=== PATIENT | female | born 1945 | race Caucasian/White ===

== ENCOUNTER → 2019-12-18 12:13 | Outpatient (CLI) | payer MEDICARE, OTHER, SELFPAY ==
[2019-12-18 15:20] LABS: Absolute Lymphocyte Count 1.42 X10^3/uL (0.83-4.51); Absolute Neutrophil Count 4.7 X10^3/uL (2.0-7.7); Basophil# 0.05 X10^3/uL; Basophil% 0.7 % (0-1); Eosinophils% 1.5 % (0-5); Hematocrit 43.8 % (37-47); Hemoglobin 13.6 g/dL (12.0-15.0); Lymphocyte # 1.42 X10^3/ul (4.0); Lymphocyte % 21.3 % (19-41); Mean Corp Hgb Conc 31.1 g/dL (32-36); Mean Corpuscular Hgb 30.5 pg (27.0-32.0); Mean Corpuscular Volume 98.2 fL (81-99); Mean Platelet Vol. 11.3 fl (6.2-12.0); Monocyte# 0.44 X10^3/uL; Monocyte% 6.6 % (0-10); NRBC Flagged by Analyzer 0 % (0-5); Neutrophil # 4.65 X10^3/uL (2.7-7.7); Neutrophil % 69.6 % (47-70); Platelet Count 190 K/mm3 (150-450); RBC Distribution Width CV 12.4 % (11.6-14.6); RBC Distribution Width SD 44.5 fl (35.1-43.9); Red Blood Count 4.46 M/mm3 (4.2-5.4); White Blood Count 6.7 K/mm3 (4.4-11.0)
[2019-12-18 15:37] LABS: ALB/GLOB Ratio 1.1 RATIO (0.9-2.4); AST(SGOT) 23 U/L (15-37); Alanine Aminotransfer ALT/SGPT 37 U/L (13-56); Albumin, Serum 3.7 g/dL (3.2-5.0); Alkaline Phosphatase 67 U/L (45-117); Anion Gap 7 (5-15); BUN 14 mg/dL (7-18); BUN/Creat Ratio 16.1 RATIO (10-20); Calcium,Total 8.7 mg/dL (8.5-10.1); Chloride 107 mmol/L (98-107); Cholesterol 137 mg/dL (200); Creatinine, Serum 0.87 mg/dL (0.55-1.02); EST Glomerular Filtration Rate 68 mL/min (>60); Est Glom Filt Rate - Afr Amer 82 mL/min (>60); Globulin 3.3 g/dL (2.2-4.2); Glucose 86 mg/dL (74-106); High Density Lipoprotein 61 mg/dL; Phosphorus 3.8 mg/dL (2.5-4.9); Potassium 3.9 mmol/L (3.5-5.1); Sodium Level 139 mmol/L (136-145); Triglycerides 128 mg/dL; Very Low Density Lipoprotein 26 mg/dL (5-40)
[2019-12-18 15:39] LABS: Vitamin D,25 Hydroxy 42.1 ng/mL
== END ==
PROVIDERS: PCP Family Medicine; Referring Provider Family Medicine; Visit Provider Family Medicine
DX: I26.99 Other pulmonary embolism without acute cor pulmonale (principal); M81.0 Age-related osteoporosis without current pathological fracture; E78.00 Pure hypercholesterolemia, unspecified
CPT/HCPCS: 36415; 80053; 80061; 82306; 84100; 85025

== ENCOUNTER → 2020-03-02 13:53 | Outpatient (CLI) | payer MEDICARE, OTHER, SELFPAY ==
[2020-03-02 17:23] LABS: ALB/GLOB Ratio 1.1 RATIO (0.9-2.4); AST(SGOT) 24 U/L (15-37); Alanine Aminotransfer ALT/SGPT 25 U/L (13-56); Albumin, Serum 3.5 g/dL (3.2-5.0); Alkaline Phosphatase 66 U/L (45-117); Anion Gap 5 (5-15); BUN 8 mg/dL (7-18); BUN/Creat Ratio 10.1 RATIO (10-20); Calcium,Total 8.9 mg/dL (8.5-10.1); Chloride 110 mmol/L (98-107); EST Glomerular Filtration Rate 75 mL/min (>60); Est Glom Filt Rate - Afr Amer 90 mL/min (>60); Globulin 3.1 g/dL (2.2-4.2); Glucose 102 mg/dL (74-106); Magnesium 2.2 mg/dL (1.6-2.6); Potassium 4.1 mmol/L (3.5-5.1); Protein, Total 6.6 g/dL (6.4-8.2); Sodium Level 142 mmol/L (136-145); Thyroid Stim Hormone (TSH) 3.05 uIU/mL (0.358-3.74)
[2020-03-04 16:08] LABS: Endomysial Antibody IgA Negative (Negative)
[2020-03-04 22:04] LABS: Immunoglobulin A 162 mg/dL (64-422); t-Transglutaminase IgA <2 U/mL (0-3)
== END ==
PROVIDERS: PCP Family Medicine; Referring Provider Family Medicine; Visit Provider Family Medicine
DX: R19.7 Diarrhea, unspecified (principal); E78.00 Pure hypercholesterolemia, unspecified
CPT/HCPCS: 36415; 80053; 82784; 83516; 83735; 84443; 86255

== ENCOUNTER → 2020-03-03 12:47 | Outpatient (CLI) | payer MEDICARE, OTHER, SELFPAY ==
[2020-03-05 22:44] LABS: Fats, Neutral Normal (.); Fats, Total Normal (.)
== END ==
PROVIDERS: PCP Family Medicine; Referring Provider Family Medicine; Visit Provider Family Medicine
DX: R19.7 Diarrhea, unspecified (principal)
CPT/HCPCS: 82705; 83630; 87177; 87209; 87493; 87506

== ENCOUNTER → 2020-07-13 12:09 | Outpatient (CLI) | payer MEDICARE, OTHER, SELFPAY ==
--- NOTE | 2020-07-13 12:11 | BI_ITS ---
MAMMOGRAPHY - BILATERAL SCREENING REASON FOR EXAM: Female, 74 years old. Routine annual screening examination. PERTINENT HISTORY: Sister with breast cancer. TECHNIQUE: Digital bilateral breast naveed (3D mammographic acquisition) in the CC and MLO projections. 2-D mediolateral oblique (MLO) and craniocaudad (CC) views of both breasts were obtained. CAD: Full Field Digital Mammography with Computer Added Detection was performed. COMPARISON: No comparison mammograms available at this time. If any prior films become available, an addendum to this report can be generated. FINDINGS: Breast Composition: The breasts are extremely dense, which lowers the sensitivity of mammography. There are no dominant masses or suspicious calcifications. Small benign-appearing bilateral axillary lymph nodes. No other significant abnormalities are identified. BI/SCRN MAMM (CAD)W/NAVEED BILAT IMPRESSION: Negative screening mammogram. Yearly followup mammogram recommended. (A) ASSESSMENT CATEGORY: BIRADS Category 2: Benign. A letter regarding these results will be sent to the patient by the facility within 30 days. Approximately 10% of breast cancers are not detected by mammography. A normal mammogram should not delay biopsy of a clinically suspicious abnormality. [id number] Electronically Signed: Yoandy Serrano MD at 12:24 EST , Service support ,
== END ==
PROVIDERS: PCP Family Medicine; Referring Provider Family Medicine; Visit Provider Family Medicine
DX: Z12.31 Encounter for screening mammogram for malignant neoplasm of breast (principal)
CPT/HCPCS: 77063; 77067

== ENCOUNTER → 2020-07-30 10:42 | Outpatient (CLI) | payer MEDICARE, OTHER, SELFPAY ==
[2020-07-30 12:45] LABS: Vitamin D,25 Hydroxy 25.4 ng/mL
[2020-07-30 13:08] LABS: ALB/GLOB Ratio 1.1 RATIO (0.9-2.4); AST(SGOT) 18 U/L (15-37); Alanine Aminotransfer ALT/SGPT 25 U/L (13-56); Albumin, Serum 3.6 g/dL (3.2-5.0); Alkaline Phosphatase 66 U/L (45-117); Anion Gap 7 (5-15); BUN 13 mg/dL (7-18); BUN/Creat Ratio 17.1 RATIO (10-20); Chloride 108 mmol/L (98-107); Cholesterol 153 mg/dL (200); Creatinine, Serum 0.76 mg/dL (0.55-1.02); EST Glomerular Filtration Rate 79 mL/min (>60); Est Glom Filt Rate - Afr Amer 95 mL/min (>60); Globulin 3.2 g/dL (2.2-4.2); Glucose 87 mg/dL (74-106); High Density Lipoprotein 75 mg/dL; Protein, Total 6.8 g/dL (6.4-8.2); Sodium Level 142 mmol/L (136-145); Triglycerides 76 mg/dL; Very Low Density Lipoprotein 15 mg/dL (5-40)
== END ==
PROVIDERS: PCP Family Medicine; Referring Provider Family Medicine; Visit Provider Family Medicine
DX: M81.0 Age-related osteoporosis without current pathological fracture (principal); E78.00 Pure hypercholesterolemia, unspecified
CPT/HCPCS: 36415; 80053; 80061; 82306

== ENCOUNTER → 2020-09-28 10:06 | Outpatient (CLI) | payer MEDICARE, OTHER, SELFPAY ==
--- NOTE | 2020-09-28 10:18 | ECHOD_ITS ---
Reason For Study: MURMUR Procedure This was a 2D Doppler, Color Flow transthoracic echocardiogram. The study was technically difficult. Exam performed in department. Left Ventricle Normal LV size. Left ventricular systolic function is normal. The estimated ejection fraction is 65 %. No evidence for diastolic dysfunction. No regional wall motion abnormalities noted. Right Ventricle Normal RV size. Normal systolic function. Atria Normal left atrium. Normal right atrium. No doppler evidence for ASD. Mitral Valve There is mild mitral annular calcification. Normal mitral valve. Trivial mitral valve insufficiency. Tricuspid Valve Normal tricuspid valve. Moderate (2+) tricuspid valve insufficiency. Right ventricular systolic pressure estimated to be 33 mmHg. Aortic Valve Trisinus/trileaflet aortic valve. Mild diffuse aortic valve thickening. Pulmonic Valve The pulmonic valve is not well visualized. Great Vessels Normal sized aortic root. Pericardium/Pleural No pericardial effusion. MMode/2D Measurements & Calculations LVIDd: 3.9 cm IVSd: 0.67 cm LVOT diam: 3.5 cm LVIDs: 2.3 cm LVPWd: 0.66 cm LVOT area: 9.6 cm2 RVDd: 3.3 cm FS: 40.6 % LAV(MOD-bp): 49.7 ml LA A4 area: 17.5 cm2 LA dimension(2D): 3.2 cm LAV(MOD-bp) Indexed: 24.7 ml/m2 LAV(MOD-sp2): 49.0 ml LAV(MOD-sp4): 48.7 ml RA A4 area: 16.3 cm2 Time Measurements MV dec time: 0.21 sec Doppler Measurements & Calculations MV E max fitz: 59.3 cm/sec Lat Peak E' Fitz: 9.0 cm/sec Med Peak E' Fitz: 7.0 cm/sec MV A max fitz: 70.6 cm/sec E/E' lat: 6.6 E/E' med: 8.4 MV E/A: 0.84 MV V2 max: 77.6 cm/sec Ao V2 max: 94.2 cm/sec LV V1 max: 97.3 cm/sec MV max P.4 mmHg Ao max P.6 mmHg LV V1 max P.8 mmHg MV V2 mean: 46.1 cm/sec PIPE(V,D): 9.9 cm2 MV mean P.93 mmHg MV V2 VTI: 17.9 cm PA V2 max: 85.4 cm/sec TR max fitz: 272.1 cm/sec MV P1/2t-pr_phl: 118.0 msec TR max P.7 mmHg ECHO/Echo Complete Interpretation Summary The study was technically difficult. Left ventricular systolic function is normal. The estimated ejection fraction is 65 %. There is mild mitral annular calcification. Trivial mitral valve insufficiency. Moderate (2+) tricuspid valve insufficiency. Mild diffuse aortic valve thickening. Right ventricular systolic pressure estimated to be 33 mmHg. No evidence for diastolic dysfunction. Ordering Physician: Carmina Guzman Referring Physician: CARMINA GUZMAN Performed By: Nataly Moser, SANKET, RVT
--- NOTE | 2020-09-28 13:35 | BD_ITS ---
STUDY: DUAL ENERGY X-RAY ABSORPTIOMETRY / DXA REASON FOR EXAM: Female, 75 years old. 733.00OsteoporosisBONE DENSITY REASON FOR EXAM TECHNIQUE: Bone Mineral Density (BMD) measurements of lumbar spine and right hip were obtained. COMPARISON: None. FINDINGS: Lumbar Spine (L1-L4): g/cm2 (0.911) / T-score (-2.1) / Z-score (-0.4) Findings are suggestive of osteopenia with a high fracture risk. Right Femur Total: g/cm2 (0.637) / T-score (-2.9) / Z-score (-1.2) Right Femoral Neck: g/cm2 (0.663) / T-score (-2.7) / Z-score (-0.7) BD/Dexa Bone Density Study IMPRESSION: The patient is considered osteoporotic as outlined below according to World [employer] Organization (WHO) criteria with a high fracture risk. Reference Information: The T-score is the number of standard deviations above or below the standard which is normal for young adults at their peak bone mineral density. The World Health Organization (WHO) interprets the T-scores as follows: Above -1 Normal bone density Between -1 and -2.5 Osteopenia Equal to / or below -2.5 Osteoporosis As a practical clinical guideline, osteopenia may be graded as follows: Mild -1 through -1.5 Moderate -1.6 through -2.0 Severe -2.1 through -2.4 The Z-score is the number of standard deviations above or below age-matched controls. A Z-score of less than -1.5 would be considered abnormal. References: 1. NIH Osteoporosis and Related Bone Diseases www osteo.org 2. International Society for Clinical Densitometry www iscd.org 3. National Osteoporosis Foundation www nof.org Electronically Signed: Yoandy Serrano MD at 12:42 EDT , Service support ,
== END ==
PROVIDERS: PCP Family Medicine; Visit Provider Family Medicine
DX: M81.0 Age-related osteoporosis without current pathological fracture (principal); R00.2 Palpitations
CPT/HCPCS: 77080; 93306

== ENCOUNTER → 2020-10-01 14:14 | Outpatient (CLI) | payer MEDICARE, OTHER, SELFPAY ==
[2020-10-01 17:51] LABS: Absolute Lymphocyte Count 1.77 X10^3/uL (0.83-4.51); Absolute Neutrophil Count 4.7 X10^3/uL (2.0-7.7); Basophil# 0.05 X10^3/uL; Basophil% 0.7 % (0-1); Eosinophil# 0.13 X10^3/uL; Eosinophils% 1.8 % (0-5); Hematocrit 43.9 % (37-47); Hemoglobin 13.5 g/dL (12.0-15.0); Lymphocyte # 1.77 X10^3/ul (4.0); Lymphocyte % 24.8 % (19-41); Mean Corp Hgb Conc 30.8 g/dL (32-36); Mean Corpuscular Hgb 29.9 pg (27.0-32.0); Mean Corpuscular Volume 97.1 fL (81-99); Mean Platelet Vol. 11.5 fl (6.2-12.0); Monocyte# 0.44 X10^3/uL; Monocyte% 6.2 % (0-10); NRBC Flagged by Analyzer 0 % (0-5); Neutrophil # 4.73 X10^3/uL (2.7-7.7); Neutrophil % 66.1 % (47-70); Platelet Count 220 K/mm3 (150-450); RBC Distribution Width CV 12.4 % (11.6-14.6); RBC Distribution Width SD 44.7 fl (35.1-43.9); Red Blood Count 4.52 M/mm3 (4.2-5.4); White Blood Count 7.2 K/mm3 (4.4-11.0)
[2020-10-01 18:36] LABS: ALB/GLOB Ratio 1.2 RATIO (0.9-2.4); AST(SGOT) 24 U/L (15-37); Alanine Aminotransfer ALT/SGPT 34 U/L (13-56); Albumin, Serum 3.7 g/dL (3.2-5.0); Alkaline Phosphatase 73 U/L (45-117); Anion Gap 5 (5-15); BUN 9 mg/dL (7-18); BUN/Creat Ratio 11.8 RATIO (10-20); Calcium,Total 8.8 mg/dL (8.5-10.1); Chloride 108 mmol/L (98-107); Creatinine, Serum 0.76 mg/dL (0.55-1.02); EST Glomerular Filtration Rate 78 mL/min (>60); Est Glom Filt Rate - Afr Amer 95 mL/min (>60); Glucose 76 mg/dL (74-106); Magnesium 2.1 mg/dL (1.6-2.6); Potassium 4.1 mmol/L (3.5-5.1); Protein, Total 6.7 g/dL (6.4-8.2); Sodium Level 141 mmol/L (136-145); Thyroid Stim Hormone (TSH) 3.05 uIU/mL (0.358-3.74)
== END ==
PROVIDERS: PCP Family Medicine; Referring Provider Family Medicine; Visit Provider Family Medicine
DX: R00.2 Palpitations (principal)
CPT/HCPCS: 36415; 80053; 83735; 84443; 85025

== ENCOUNTER → 2021-02-18 17:02 | Outpatient (CLI) | payer MEDICARE, OTHER, SELFPAY ==
--- NOTE | 2021-02-18 17:05 | RAD_ITS ---
STUDY: X-RAY - BILATERAL RIBS WITH CHEST REASON FOR EXAM: Female, 75 years old. Rib pain. Fall on to left ribs. TECHNIQUE - RIBS: 6 view(s) of the ribs. TECHNIQUE - CHEST: Single PA view of the chest. COMPARISON: None. FINDINGS - RIBS : Normal visualized ribs without a demonstrated fracture. FINDINGS - CHEST: The lungs are mildly hyperexpanded. There is no focal mass or infiltrate. There is no pneumothorax. There is no demonstrated pleural abnormality. Normal size heart. Normal mediastinum and louis. Normal visualized pulmonary arteries. There is atherosclerotic calcification of the aortic arch with tortuosity. There are diffuse degenerative changes of the visualized thoracic spine. There is degenerative osteoarthritis of the bilateral shoulders. There is no demonstrated abnormality of the visualized soft tissue structures of the upper abdomen. RAD/Ribs Samuel Min 4V w/PA Chest IMPRESSION: RIBS: Normal x-ray examination of the bilateral ribs. CHEST: Degenerative changes, as described above. No demonstrated acute cardiopulmonary process. Electronically Signed: Kevan Pardo DO at 23:58 EDT Tel [phone], Service support ,
== END ==
PROVIDERS: PCP Family Medicine; Referring Provider Family Medicine; Visit Provider Family Medicine
DX: R07.81 Pleurodynia (principal)
CPT/HCPCS: 71111

== ENCOUNTER → 2021-04-12 11:30 | Outpatient (CLI) | payer MEDICARE, OTHER, SELFPAY ==
[2021-04-12 15:27] LABS: Vitamin D,25 Hydroxy 24.3 ng/mL
[2021-04-12 15:33] LABS: ALB/GLOB Ratio 0.9 RATIO (0.9-2.4); AST(SGOT) 20 U/L (15-37); Alanine Aminotransfer ALT/SGPT 23 U/L (13-56); Albumin, Serum 3.6 g/dL (3.2-5.0); Alkaline Phosphatase 59 U/L (45-117); Anion Gap 10 (5-15); BUN 9 mg/dL (7-18); BUN/Creat Ratio 10.5 RATIO (10-20); Calcium,Total 8.9 mg/dL (8.5-10.1); Chloride 104 mmol/L (98-107); Cholesterol 157 mg/dL (200); Creatinine, Serum 0.86 mg/dL (0.55-1.02); EST Glomerular Filtration Rate 68 mL/min (>60); Est Glom Filt Rate - Afr Amer 82 mL/min (>60); Globulin 3.8 g/dL (2.2-4.2); Glucose 91 mg/dL (74-106); High Density Lipoprotein 62 mg/dL; Potassium 4.1 mmol/L (3.5-5.1); Protein, Total 7.4 g/dL (6.4-8.2); Sodium Level 139 mmol/L (136-145); Triglycerides 115 mg/dL; Very Low Density Lipoprotein 23 mg/dL (5-40)
== END ==
PROVIDERS: PCP Family Medicine; Referring Provider Family Medicine; Visit Provider Family Medicine
DX: E78.00 Pure hypercholesterolemia, unspecified (principal); M81.0 Age-related osteoporosis without current pathological fracture
CPT/HCPCS: 36415; 80053; 80061; 82306

== ENCOUNTER 2021-09-01 12:01 | Outpatient (CLI) | payer MEDICARE, OTHER, SELFPAY ==
--- NOTE | 2021-09-01 12:05 | BI_ITS ---
MAMMOGRAPHY - BILATERAL SCREENING REASON FOR EXAM: Female, 75 years old. Routine annual screening examination. PERTINENT HISTORY: Sister with breast cancer. TECHNIQUE: Digital bilateral breast naveed (3D mammographic acquisition) in the CC and MLO projections. 2-D mediolateral oblique (MLO) and craniocaudad (CC) views of both breasts were obtained. CAD: Full Field Digital Mammography with Computer Added Detection was performed. COMPARISON: Comparison is made with prior study dated 07/13/2020. FINDINGS: Breast Composition: The breasts are extremely dense, which lowers the sensitivity of mammography. There are no dominant masses or suspicious calcifications. Stable small benign-appearing bilateral axillary lymph. No other significant abnormalities are identified. There has been no significant change since the prior study. BI/SCRN MAMM (CAD)W/NAVEED BILAT IMPRESSION: Stable bilateral screening mammogram. Yearly follow-up mammogram recommended. (A) ASSESSMENT CATEGORY: BIRADS Category 2: Benign. A letter regarding these results will be sent to the patient by the facility within 30 days. Approximately 10% of breast cancers are not detected by mammography. A normal mammogram should not delay biopsy of a clinically suspicious abnormality. [id number] Electronically Signed: Yoandy Serrano MD at 13:12 EST ,
== END 2021-09-01 23:59 | disposition home or self-care (01) ==
PROVIDERS: PCP Family Medicine; Visit Provider Family Medicine
DX: Z12.31 Encounter for screening mammogram for malignant neoplasm of breast (principal)
CPT/HCPCS: 77063; 77067

== ENCOUNTER 2021-10-04 11:15 | Outpatient (CLI) | payer MEDICARE, OTHER, SELFPAY ==
[2021-10-04 15:51] LABS: Vitamin D,25 Hydroxy 37.9 ng/mL
[2021-10-04 16:08] LABS: AST(SGOT) 28 U/L (15-37); Alanine Aminotransfer ALT/SGPT 37 U/L (13-56); Albumin, Serum 3.7 g/dL (3.2-5.0); Alkaline Phosphatase 61 U/L (45-117); Anion Gap 6 (5-15); BUN 9 mg/dL (7-18); Calcium,Total 8.5 mg/dL (8.5-10.1); Chloride 106 mmol/L (98-107); Cholesterol 174 mg/dL (200); Creatinine, Serum 0.82 mg/dL (0.55-1.02); EST Glomerular Filtration Rate 72 mL/min (>60); Est Glom Filt Rate - Afr Amer 87 mL/min (>60); Globulin 3.7 g/dL (2.2-4.2); Glucose 86 mg/dL (74-106); High Density Lipoprotein 61 mg/dL; Potassium 4.1 mmol/L (3.5-5.1); Protein, Total 7.4 g/dL (6.4-8.2); Sodium Level 139 mmol/L (136-145); Triglycerides 122 mg/dL; Very Low Density Lipoprotein 24 mg/dL (5-40)
== END 2021-10-04 23:59 | disposition home or self-care (01) ==
LOC: MFPLAB 11:25
PROVIDERS: Registered Nurse; PCP Family Medicine; Referring Provider Family Medicine; Visit Provider Family Medicine
DX: E78.00 Pure hypercholesterolemia, unspecified (principal); E55.9 Vitamin D deficiency, unspecified
CPT/HCPCS: 36415; 80053; 80061; 82306

== ENCOUNTER 2021-10-10 13:37 | Outpatient (CLI) | payer MEDICARE, OTHER, SELFPAY | END 2021-10-10 23:59 | disposition home or self-care (01) | LOC: MFPLAB 13:38 | PROVIDERS: PCP Family Medicine; Visit Provider Family Medicine | DX: R19.7 Diarrhea, unspecified (principal) | CPT/HCPCS: 87506 ==

== ENCOUNTER → 2021-10-19 | Outpatient (CLI) | payer MEDICARE, OTHER, SELFPAY | END | disposition home or self-care (01) | LOC: MFPLAB 14:04 → LABSPEC 14:06 | PROVIDERS: PCP Family Medicine; Referring Provider Family Medicine; Visit Provider Registered Nurse | DX: R19.7 Diarrhea, unspecified (principal) | CPT/HCPCS: 87177; 87209; 87493 ==

== ENCOUNTER → 2022-03-31 | Outpatient (CLI) | payer MEDICARE, OTHER, SELFPAY ==
[2022-03-31 12:10] LABS: Absolute Neutrophil Count 6.4 X10^3/uL (2.0-7.7); Basophil# 0.09 X10^3/uL; Eosinophil# 0.18 X10^3/uL; Lymphocyte % 21.7 % (19-41); Mean Corp Hgb Conc 32.6 g/dL (32-36); Mean Corpuscular Hgb 31.8 pg (27.0-32.0); Mean Corpuscular Volume 97.7 fL (81-99); Mean Platelet Vol. 11.1 fl (6.2-12.0); Monocyte# 0.47 X10^3/uL; Monocyte% 5.1 % (0-10); NRBC Flagged by Analyzer 0 % (0-5); Neutrophil # 6.42 X10^3/uL (2.7-7.7); Neutrophil % 69.8 % (47-70); Platelet Count 237 K/mm3 (150-450); RBC Distribution Width CV 12.5 % (11.6-14.6); RBC Distribution Width SD 45.1 fl (35.1-43.9); Red Blood Count 4.71 M/mm3 (4.2-5.4); White Blood Count 9.2 K/mm3 (4.4-11.0)
[2022-03-31 13:14] LABS: AST(SGOT) 16 U/L (15-37); Alanine Aminotransfer ALT/SGPT 27 U/L (13-56); Albumin, Serum 3.5 g/dL (3.2-5.0); Alkaline Phosphatase 56 U/L (45-117); Anion Gap 7 (5-15); BUN 12 mg/dL (7-18); BUN/Creat Ratio 13.1 RATIO (10-20); Calcium,Total 9.2 mg/dL (8.5-10.1); Chloride 106 mmol/L (98-107); Cholesterol 149 mg/dL (200); Creatinine, Serum 0.92 mg/dL (0.55-1.02); EST Glomerular Filtration Rate 63 mL/min (>60); Est Glom Filt Rate - Afr Amer 76 mL/min (>60); Globulin 3.6 g/dL (2.2-4.2); Glucose 104 mg/dL (74-106); High Density Lipoprotein 67 mg/dL; Magnesium 1.9 mg/dL (1.6-2.6); Potassium 3.9 mmol/L (3.5-5.1); Protein, Total 7.1 g/dL (6.4-8.2); Sodium Level 141 mmol/L (136-145); Thyroid Stim Hormone (TSH) 0.04 uIU/mL (0.358-3.74); Triglycerides 101 mg/dL; Very Low Density Lipoprotein 20 mg/dL (5-40)
[2022-04-04 16:09] LABS: T4 Free Direct 1.02 ng/dL (0.76-1.46)
[2022-04-04 16:16] LABS: Hemoglobin A1c 5.2 % (3.8-5.6)
== END | disposition home or self-care (01) ==
LOC: MFPLAB 11:05
PROVIDERS: PCP Family Medicine; Referring Provider Family Medicine; Visit Provider Family Medicine
DX: R00.2 Palpitations (principal); M81.0 Age-related osteoporosis without current pathological fracture; E07.89 Other specified disorders of thyroid; R73.09 Other abnormal glucose; E78.00 Pure hypercholesterolemia, unspecified
CPT/HCPCS: 36415; 80053; 80061; 82306; 83036; 83735; 84432; 84439; 84443; 84445; 85025; 86376; 86800

== ENCOUNTER → 2022-04-13 | Outpatient (CLI) | payer MEDICARE, OTHER, SELFPAY ==
[2022-04-16 09:21] LABS: Thyroid Stim Immunoglob <0.10 IU/L (0.00-0.55)
== END | disposition home or self-care (01) ==
LOC: MFPLAB 16:42
PROVIDERS: PCP Family Medicine; Referring Provider Family Medicine; Visit Provider Family Medicine
DX: E07.89 Other specified disorders of thyroid (principal)
CPT/HCPCS: 36415; 84445

== ENCOUNTER → 2022-08-29 | Outpatient (CLI) | payer MEDICARE, OTHER, SELFPAY ==
--- NOTE | 2022-08-29 13:09 | ECHOD_ITS ---
Reason For Study: Palpitations Procedure This was a 2D Doppler, Color Flow transthoracic echocardiogram. Exam performed in department. Left Ventricle Normal size and thickness. The left ventricular ejection fraction is 65 %. Normal diastology for age. Right Ventricle Mildly dilated right ventricle. Normal systolic function. Atria Normal left atrium. The right atrium is mildly enlarged. Mitral Valve The mitral valve is structurally normal. No prolapse or stenosis seen. Tricuspid Valve Mild tricuspid valve insufficiency. Normal pulmonary artery pressure. Aortic Valve Normal aortic valve. Pulmonic Valve The pulmonic valve is not well visualized. Great Vessels Normal sized aortic root. Pericardium/Pleural No pericardial effusion. MMode/2D Measurements & Calculations LVIDd: 3.9 cm IVSd: 0.66 cm LA dimension: 3.0 cm LVIDs: 2.2 cm LVPWd: 0.71 cm RVDd: 3.5 cm FS: 43.2 % LAV(MOD-bp): 36.1 ml LA A4 area: 13.6 cm2 RA A4 area: 14.0 cm2 LAV(MOD-bp) Indexed: 18.7 ml/m2 LAV(MOD-sp2): 35.1 ml LAV(MOD-sp4): 31.8 ml Time Measurements MV dec time: 0.22 sec Doppler Measurements & Calculations MV E max fitz: 50.1 cm/sec Lat Peak E' Fitz: 11.3 cm/sec Med Peak E' Fitz: 9.5 cm/sec MV A max fitz: 86.3 cm/sec E/E' lat: 4.4 E/E' med: 5.3 MV E/A: 0.58 MV V2 max: 96.9 cm/sec MV dec slope: 225.7 cm/sec2 Ao V2 max: 85.9 cm/sec MV max P.8 mmHg Ao max P.9 mmHg MV V2 mean: 47.0 cm/sec MV mean P.1 mmHg MV V2 VTI: 22.0 cm LV V1 max: 88.3 cm/sec PA V2 max: 69.3 cm/sec TR max fitz: 254.3 cm/sec LV V1 max P.1 mmHg TR max P.9 mmHg ECHO/Echo Complete Interpretation Summary The left ventricular ejection fraction is 65 %. Mildly dilated right ventricle. The right atrium is mildly enlarged. Mild tricuspid valve insufficiency. Ordering Physician: Fausto Hutton Referring Physician: Lucas Guzman Performed By: Cortez Gonsalves RCS
== END | disposition home or self-care (01) ==
LOC: CVS 13:07
PROVIDERS: PCP Family Medicine; Referring Provider Internal Medicine Cardiovascular Disease; Visit Provider Internal Medicine Cardiovascular Disease
DX: R00.2 Palpitations (principal)
CPT/HCPCS: 93225; 93226; 93306

== ENCOUNTER → 2022-11-13 | Outpatient (CLI) | payer MEDICARE, OTHER, SELFPAY ==
[2022-11-13 15:40] LABS: Absolute Lymphocyte Count 1.64 X10^3/uL (0.83-4.51); Absolute Neutrophil Count 4.7 X10^3/uL (2.0-7.7); Basophil# 0.06 X10^3/uL; Basophil% 0.9 % (0-1); Eosinophil# 0.08 X10^3/uL; Eosinophils% 1.2 % (0-5); Hematocrit 44.4 % (37-47); Hemoglobin 13.9 g/dL (12.0-15.0); Lymphocyte # 1.64 X10^3/ul (0.83-4.51); Lymphocyte % 23.7 % (19-41); Mean Corp Hgb Conc 31.3 g/dL (32-36); Mean Corpuscular Hgb 30.8 pg (27.0-32.0); Mean Corpuscular Volume 98.2 fL (81-99); Mean Platelet Vol. 11.5 fl (6.2-12.0); Monocyte# 0.39 X10^3/uL; Monocyte% 5.6 % (0-10); NRBC Flagged by Analyzer 0 % (0-5); Neutrophil # 4.74 X10^3/uL (2.7-7.7); Neutrophil % 68.3 % (47-70); Platelet Count 196 K/mm3 (150-450); RBC Distribution Width CV 12.6 % (11.6-14.6); RBC Distribution Width SD 45.2 fl (35.1-43.9); Red Blood Count 4.52 M/mm3 (4.2-5.4); White Blood Count 6.9 K/mm3 (4.4-11.0)
[2022-11-13 16:11] LABS: ALB/GLOB Ratio 1.1 RATIO (0.9-2.4); AST(SGOT) 23 U/L (15-37); Alanine Aminotransfer ALT/SGPT 25 U/L (13-56); Albumin, Serum 3.6 g/dL (3.2-5.0); Alkaline Phosphatase 52 U/L (45-117); Anion Gap 6 (5-15); BUN 11 mg/dL (7-18); BUN/Creat Ratio 13.3 RATIO (10-20); Chloride 109 mmol/L (98-107); Creatinine, Serum 0.82 mg/dL (0.55-1.02); EST Glomerular Filtration Rate 71 mL/min (>60); Est Glom Filt Rate - Afr Amer 86 mL/min (>60); Globulin 3.3 g/dL (2.2-4.2); Glucose 87 mg/dL (74-106); Potassium 4.1 mmol/L (3.5-5.1); Protein, Total 6.9 g/dL (6.4-8.2); Sodium Level 141 mmol/L (136-145)
== END | disposition home or self-care (01) ==
LOC: MFPLAB 11:32
PROVIDERS: Nurse Practitioner Family; PCP Family Medicine; Visit Provider Family Medicine
DX: R19.7 Diarrhea, unspecified (principal)
CPT/HCPCS: 36415; 80053; 85025

== ENCOUNTER → 2022-11-15 | Outpatient (CLI) | payer MEDICARE, OTHER, SELFPAY | END | disposition home or self-care (01) | PROVIDERS: PCP Family Medicine; Visit Provider Nurse Practitioner Family | DX: R19.7 Diarrhea, unspecified (principal) | CPT/HCPCS: 87177; 87209 ==

== ENCOUNTER → 2022-12-15 | Outpatient (CLI) | payer MEDICARE, OTHER, SELFPAY ==
--- NOTE | 2022-12-15 13:11 | STRESSREP_ITS ---
Stress Test Report Date: 12/15/2022 Procedure: Exercise tolerance test Indications: Palpitation Consent: Per the patient Procedure: The patient exercised on a Jose Manuel protocol for 3-minute achieving a peak heart rate of 150 bpm (105% predicted maximal heart rate) with a peak blood pressure 162/50 mmHg and a peak MET capacity of approximately 4.6 MET's. The baseline ECG demonstrated normal sinus rhythm. The peak exercise ECG demonstrated no ischemic changes. There were no cardiac dysrhythmias pretest, during exercise, or recovery. The functional capacity was considered suboptimal. The patient had no complaints of chest discomfort during exercise or recovery. The examination was discontinued secondary to dyspnea and target heart rate raudel ng achieved. Impression: 1. Technically adequate (percent predicted maximal heart rate greater than 85%) exercise tolerance test 2. Peak exercise ECG with no ischemic changes 3. There were no cardiac dysrhythmias during exercise or recovery This note was generated with [employer] software. It may contain incorrect words, spelling, and punctuation that were not noted in checking the note before signing.
== END | disposition home or self-care (01) ==
LOC: CVS 12:27
PROVIDERS: PCP Family Medicine; Referring Provider Internal Medicine Cardiovascular Disease; Visit Provider Internal Medicine Cardiovascular Disease
DX: R06.02 Shortness of breath (principal); R00.2 Palpitations; R53.83 Other fatigue
CPT/HCPCS: 93017

== ENCOUNTER → 2023-01-16 | Outpatient (CLI) | payer MEDICARE, OTHER, SELFPAY ==
--- NOTE | 2023-01-16 13:57 | BD_ITS ---
STUDY: DUAL ENERGY X-RAY ABSORPTIOMETRY / DXA REASON FOR EXAM: Female, 77 years old. 733.90OsteopeniaBONE DENSITY REASON FOR EXAM TECHNIQUE: Bone Mineral Density (BMD) measurements of lumbar spine and right hip were obtained. COMPARISON: Comparison is made with prior study dated September 28, 2020. FINDINGS: Lumbar Spine (L1-L4): g/cm2 (0.893) / T-score (-1.4) / Z-score (1.2) Findings are suggestive of osteopenia with a low fracture risk. Right Femur Total: g/cm2 (0.577) / T-score (-3.0) / Z-score (-1.0) Right Femoral Neck: g/cm2 (0.498) / T-score (-3.2) / Z-score (-0.9) The T-Scores on the most recent prior examination were: Lumbar Spine (L1-L4): There has been improvement of bone density since the previous examination. Right Femur Total: which represents a worsening of 0.7%. BD/Dexa Bone Density Study IMPRESSION: The patient is considered osteoporotic as outlined below according to World [employer] Organization (WHO) criteria with a high fracture risk. There has been worsening of bone density since the previous examination. Reference Information: The T-score is the number of standard deviations above or below the standard which is normal for young adults at their peak bone mineral density. The World Health Organization (WHO) interprets the T-scores as follows: Above -1 Normal bone density Between -1 and -2.5 Osteopenia Equal to / or below -2.5 Osteoporosis As a practical clinical guideline, osteopenia may be graded as follows: Mild -1 through -1.5 Moderate -1.6 through -2.0 Severe -2.1 through -2.4 The Z-score is the number of standard deviations above or below age-matched controls. A Z-score of less than -1.5 would be considered abnormal. References: 1. NIH Osteoporosis and Related Bone Diseases www osteo.org 2. International Society for Clinical Densitometry www iscd.org 3. National Osteoporosis Foundation www nof.org Electronically Signed: Yoandy Serrano MD at 14:32 EDT ,
== END | disposition home or self-care (01) ==
LOC: OPBD 13:52
PROVIDERS: PCP Family Medicine; Referring Provider Family Medicine; Visit Provider Family Medicine
DX: M81.0 Age-related osteoporosis without current pathological fracture (principal)
CPT/HCPCS: 77080

== ENCOUNTER → 2023-01-23 | Outpatient (CLI) | payer MEDICARE, OTHER, SELFPAY ==
--- NOTE | 2023-01-23 12:58 | BI_ITS ---
MAMMOGRAPHY - BILATERAL SCREENING REASON FOR EXAM: Female, 77 years old. Routine annual screening examination. PERTINENT HISTORY: Sister with breast cancer. TECHNIQUE: Digital bilateral breast naveed (3D mammographic acquisition) in the CC and MLO projections. 2-D mediolateral oblique (MLO) and craniocaudad (CC) views of both breasts were obtained. CAD: Full Field Digital Mammography with Computer Added Detection was performed. COMPARISON: Comparison is made with prior study of September 01, 2021 and July 13, 2020. FINDINGS: Breast Composition: The breasts are extremely dense, which lowers the sensitivity of mammography. There are no dominant masses or suspicious calcifications. Stable small benign-appearing bilateral axillary lymph nodes. No other significant abnormalities are identified. There has been no significant change since the prior study. BI/SCRN MAMM (CAD)W/NAVEED BILAT IMPRESSION: Stable bilateral screening mammogram. Yearly follow-up mammogram recommended. (A) ASSESSMENT CATEGORY: BIRADS Category 2: Benign. A letter regarding these results will be sent to the patient by the facility within 30 days. Approximately 10% of breast cancers are not detected by mammography. A normal mammogram should not delay biopsy of a clinically suspicious abnormality. [id number] Electronically Signed: Yoandy Serrano MD at 14:03 EDT ,
== END | disposition home or self-care (01) ==
PROVIDERS: PCP Family Medicine; Referring Provider Family Medicine; Visit Provider Family Medicine
DX: Z12.31 Encounter for screening mammogram for malignant neoplasm of breast (principal); Z80.3 Family history of malignant neoplasm of breast
CPT/HCPCS: 77063; 77067

== ENCOUNTER 2023-05-09 11:09 | Day surgery (SDC) | payer MEDICARE, OTHER, SELFPAY ==
[2023-05-09] VITALS (7 sets, daily range): BP systolic 100–136; BP diastolic 54–72; PULSE 78–85; RESP 18; TEMP 36.2–36.8; O2SAT 96–100; BMI 25.8
--- NOTE | 2023-05-09 11:30 | PCM.HP.BLA ---
History and Physical Date of Admission: 05/09/23 ester presents to the office today for surgical consultation regarding a screening colonoscopy. The patient is referred by Dr Lucas Guzman and a written copy my surgical consult recommendations will be returned to him. 77-year-old female. Apparently she is reasonably recent Del transferred medical care from [facility] to more locally here. Records from [facility] apparently have been very difficult to retrieve. There is evidence suggestive by the patient of her previous colonoscopy 2006. No family history of colon cancer. 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 She is still on Eliquis therapy since that time. She states that she did see a track walker but again her reports are somewhat vague. She states that the time of the event she was doing more sitting but apparently the etiology to the DVT and PE according to her was not clarified. Looking through charting it is also apparent that February 2020 the patient had stool analysis done. On direct questioning the patient she then does recall that he has she had some diarrhea issues at that time but thinks that those have mostly resolved. She is not currently complaining of abdominal pain. No bright red blood per rectum or melena. As noted above she is now establishing care locally. Because of palpitations she underwent a cardiac evaluation locally. To my understanding no acute features have been identified and the patient is felt to be appropriate for endoscopic evaluation. She also complains of recent chronic diarrhea for the past year. She does complain weight loss. She does complain of some nausea without vomiting. She denies any chest pain shortness of breath. HPI HPI HPI: ADAN BLANCAS, is a 75 F who presents to the office today for ROS General General: Yes fatigue; No weight change, appetite, colon cancer, breast cancer or weakness HEENT HEENT: No difficulty swallowing, eye injury, eye surgery, swollen glands or hoarseness Endo Endocrine: No thyroid disease, diabetes mellitus, thyroid cancer, Hair loss, heat intolerance or cold intolerance Skin Skin: No rash or changing moles Musc Musculoskeletal: Yes back problems; No arthritis, rheumatoid arthritis, gout or joint pain Cardio Cardiovascular: No murmur, pacemaker, heart disease, atrial fibrillation, high blood pressure, heart attack, heart stent, palpitations, shortness of breat with exertion or chest pain Psych Psychiatric: No depression, anxiety or hearing voices Resp Respiratory: No shortness of breath, No sleep apnea, No cough, No COPD, No asthma, No emphysema and No wheezing Gastro Gastrointestinal: No abdominal pain, No nausea or vomiting, No diarrhea, No constipation, No blood in stool, No acid reflux, No hemorrhoids, No ulcers, No gallbladder problem and No black,tarry stools Rodney Hematologic: Yes blood thinners, No blood disorders, No bleeding, No anemia and Yes blood clots Neuro Neurologic: No weakness Exam Const General: cooperative, healthy appearing and comfortable [facility] Head: normal to inspection Eyes General: appearance normal, both eyes and all related structures Resp Effort & Inspection: normal respiratory effort Auscultation: clear to auscultation bilaterally Cardio Rate: regular rate Rhythm: regular rhythm Heart Sounds: no murmurs GI Palpation: soft and no hepatosplenomegaly Auscultation: normal bowel sounds Musc Cervical Spine: normal cervical lordosis Neuro General: patient alert, patient awake and patient oriented x3 Extrem General: no calf tenderness bilaterally Psych Affect: normal affect COVID (Procedure Consent) Procedure Criteria Procedure Criteria: Yes Elective The surgeon/proceduralist and patient have discussed in detail the risk of exposure to and/or potential harm posed by the COVID-19 virus with having a surgery/procedure at this time versus the risk of? delaying the surgery/procedure. It is not possible to know either the risk of delaying the surgery or procedure or chance of getting an infection with perfect accuracy, but a joint decision was made between the patient and the surgeon/proceduralist ?to proceed at this time with the scheduled surgery/procedure as indicated on the consent form. Assessment and Plan Assessment and Plan (1) Screening for intestinal cancer: Status: Acute Plan Details Additional Comments: The patient is establishing care locally. Trying to update her medical necessities. I concur with recommendations for colonoscopy with possible biopsy or polypectomy as indicated. She is aware of the technique, benefit, risk, alternatives. She has had an opportunity to ask and have questions answered. The long-term use of Eliquis for her DVT and pulmonary embolus somewhat less clear to me. We will have her hold her anticoagulation for 48 hours preoperatively. We will then advised the patient on when she can restart. Regarding the long-term use I will defer that to Dr Lucas Guzman. (2) she will also get assessed for microscopic colitis, inflammatory colitis, inflammatory bowel disease and infectious colitis. She has had an opportunity to ask and have questions answered. We will utilize monitored anesthesia care. We will schedule and proceed at her discretion.
[2023-05-09] MEDS: Lactated Ringers 1,000 ML 15 ML IV (11:31)
--- NOTE | 2023-05-09 12:23 | OP.CCLET_ITS ---
05/09/2023 Lucas Guzman [address] [place] [address] Re : Colonoscopy procedure for Hansa Ryan Dear Dr. Guzman This procedure was performed on Tuesday, May 09, 2023. My impressions and recommendations are as follows: Impressions : - Diverticulosis in the recto-sigmoid colon. - The examination was otherwise normal on direct and retroflexion views. - No specimens collected. Recommendations : - Discharge patient to home. - Resume previous diet. - Continue present medications. - Repeat colonoscopy in 5 years for surveillance. My findings are described in the full procedure note, which is enclosed. If I can be of further assistance, please feel free to contact me at . Sincerely, Keenan Anglin, 05/09/2023 12:23:00 PM This report has been signed electronically.
--- NOTE | 2023-05-09 12:23 | OP.COLON_ITS ---
Patient Name: Hansa Ryan Procedure Date: 05/09/2023 11:51 AM Date of : 1945 Age: 77 Procedure: Colonoscopy Indications: Screening for colorectal malignant neoplasm Providers: Keenan Anglin DO Medicines: Monitored Anesthesia Care Patient Profile: Last Colonoscopy: 3 years ago. Complications: No immediate complications. Procedure: Pre-Anesthesia Assessment: - Prior to the procedure, a History and Physical was performed, and patient medications and allergies were reviewed. The patient is competent. The risks and benefits of the procedure and the sedation options and risks were discussed with the patient. All questions were answered and informed consent was obtained. Patient identification and proposed procedure were verified by the physician in the pre-procedure area. Mental Status Examination: alert and oriented. Airway Examination: normal oropharyngeal airway and neck mobility. Respiratory Examination: clear to auscultation. CV Examination: normal. Prophylactic Antibiotics: The patient does not require prophylactic antibiotics. Prior Anticoagulants: The patient has taken no anticoagulant or antiplatelet agents. ASA Grade Assessment: III - A patient with severe systemic disease. After reviewing the risks and benefits, the patient was deemed in satisfactory condition to undergo the procedure. The anesthesia plan was to use monitored anesthesia care (MAC). Immediately prior to administration of medications, the patient was re-assessed for adequacy to receive sedatives. The heart rate, respiratory rate, oxygen saturations, blood pressure, adequacy of pulmonary ventilation, and response to care were monitored throughout the procedure. The physical status of the patient was re-assessed after the procedure. After I obtained informed consent, the scope was passed under direct vision. Throughout the procedure, the patient's blood pressure, pulse, and oxygen saturations were monitored continuously. The colonoscope was introduced through the anus and advanced to the cecum, identified by appendiceal orifice and ileocecal valve. The colonoscopy was performed without difficulty. The patient tolerated the procedure well. The quality of the bowel preparation was adequate. Scope In: 12:00:52 PM Scope Withdrawal Time 0 hours 10 minutes 43 seconds Scope Out: 12:16:41 PM Total Procedure Duration Time 0 hours 15 minutes 49 seconds Findings: The perianal and digital rectal examinations were normal. A few small-mouthed diverticula were found in the recto-sigmoid colon. The exam was otherwise without abnormality on direct and retroflexion views. Impression: - Diverticulosis in the recto-sigmoid colon. - The examination was otherwise normal on direct and retroflexion views. - No specimens collected. Recommendation: - Discharge patient to home. - Resume previous diet. - Continue present medications. - Repeat colonoscopy in 5 years for surveillance. Procedure Code(s): --- Professional --- G0121, Colorectal cancer screening; colonoscopy on individual not meeting criteria for high risk CPT copyright 2021 [employer]. All rights reserved. The codes documented in this report are preliminary and upon director payment review may be revised to meet current compliance requirements. Keenan Anglin DO 05/09/2023 12:23:00 PM This report has been signed electronically. Number of Addenda: 0 Note Initiated On: 05/09/2023 11:51 AM
== END 2023-05-09 14:07 | disposition home or self-care (01) ==
LOC: EN 11:11 → AC 11:12
PROVIDERS: PCP Family Medicine; Referring Provider Family Medicine; Visit Provider Internal Medicine Gastroenterology
PROC: 0DJD8ZZ Inspection of Lower Intestinal Tract, Via Natural or Artificial Opening Endoscopic (ICD-10-PCS; CPT 45378; principal; 2023-05-09 12:10)
DX: Z12.11 Encounter for screening for malignant neoplasm of colon (principal); K57.30 Diverticulosis of large intestine without perforation or abscess without bleeding; E55.9 Vitamin D deficiency, unspecified; E78.00 Pure hypercholesterolemia, unspecified; Z79.01 Long term (current) use of anticoagulants; Z79.899 Other long term (current) drug therapy; Z86.718 Personal history of other venous thrombosis and embolism; Z86.711 Personal history of pulmonary embolism
CPT/HCPCS: G0121; J7120; J2405

== ENCOUNTER → 2023-05-14 | Outpatient (CLI) | payer MEDICARE, OTHER, SELFPAY ==
[2023-05-14 12:50] LABS: Absolute Lymphocyte Count 1.53 X10^3/uL (0.83-4.51); Absolute Neutrophil Count 4.1 X10^3/uL (2.0-7.7); Basophil# 0.04 X10^3/uL; Basophil% 0.6 % (0-1); Eosinophil# 0.14 X10^3/uL; Eosinophils% 2.3 % (0-5); Hematocrit 42.4 % (37-47); Hemoglobin 13.4 g/dL (12.0-15.0); Lymphocyte # 1.53 X10^3/ul (0.83-4.51); Lymphocyte % 24.8 % (19-41); Mean Corp Hgb Conc 31.6 g/dL (32-36); Mean Corpuscular Hgb 31.5 pg (27.0-32.0); Mean Corpuscular Volume 99.5 fL (81-99); Mean Platelet Vol. 11.1 fl (6.2-12.0); Monocyte# 0.39 X10^3/uL; Monocyte% 6.3 % (0-10); NRBC Flagged by Analyzer 0 % (0-5); Neutrophil # 4.05 X10^3/uL (2.7-7.7); Neutrophil % 65.7 % (47-70); Platelet Count 199 K/mm3 (150-450); RBC Distribution Width CV 12.9 % (11.6-14.6); RBC Distribution Width SD 47.8 fl (35.1-43.9); Red Blood Count 4.26 M/mm3 (4.2-5.4); White Blood Count 6.2 K/mm3 (4.4-11.0)
[2023-05-14 13:39] LABS: Vitamin D,25 Hydroxy 40.6 ng/mL
[2023-05-14 13:56] LABS: ALB/GLOB Ratio 1.1 RATIO (0.9-2.4); AST(SGOT) 20 U/L (15-37); Alanine Aminotransfer ALT/SGPT 22 U/L (13-56); Albumin, Serum 3.5 g/dL (3.2-5.0); Alkaline Phosphatase 60 U/L (45-117); Anion Gap 7 (5-15); BUN 13 mg/dL (7-18); BUN/Creat Ratio 16.2 RATIO (10-20); Calcium,Total 8.4 mg/dL (8.5-10.1); Chloride 108 mmol/L (98-107); Cholesterol 154 mg/dL (200); EST Glomerular Filtration Rate 73 mL/min (>60); Est Glom Filt Rate - Afr Amer 89 mL/min (>60); Globulin 3.2 g/dL (2.2-4.2); Glucose 75 mg/dL (74-106); High Density Lipoprotein 63 mg/dL; Potassium 3.7 mmol/L (3.5-5.1); Protein, Total 6.7 g/dL (6.4-8.2); Sodium Level 142 mmol/L (136-145); T4 Free Direct 1.01 ng/dL (0.76-1.46); Triglycerides 83 mg/dL; Very Low Density Lipoprotein 17 mg/dL (5-40)
== END | disposition home or self-care (01) ==
LOC: MFPLAB 10:57
PROVIDERS: PCP Family Medicine; Visit Provider Family Medicine
DX: M81.0 Age-related osteoporosis without current pathological fracture (principal); E78.00 Pure hypercholesterolemia, unspecified; E05.90 Thyrotoxicosis, unspecified without thyrotoxic crisis or storm
CPT/HCPCS: 36415; 80053; 80061; 82306; 84439; 84443; 85025

== ENCOUNTER → 2023-09-12 | Outpatient (CLI) | payer MEDICARE, OTHER, SELFPAY ==
--- NOTE | 2023-09-12 13:57 | VDLE_ITS ---
Reason For Study: Venous Incompetence RIGHT LEFT CFV is compressible, spontaneous, phasic, CFV is compressible, spontaneous, phasic, competent and demonstrates normal competent, and demonstrates normal augmentation. augmentation. FV is compressible, spontaneous, phasic, FV is compressible, spontaneous, phasic, competent and demonstrates normal competent and demonstrates normal augmentation. augmentation. POP V is compressible, phasic, and POP V is compressible, spontaneous, phasic, INCOMPETENT for greater than 1.0 second. competent and demonstrates normal T/P Trunk is compressible. augmentation. PTV is compressible. T/P Trunk is compressible. RT PerV is compressible. PTV is compressible. SFJ is INCOMPETENT and measures 0.93 cm. LT PerV is compressible. GSV proximal thigh measures 0.66 x 0.72 cm. SFJ is INCOMPETENT and measures 0.77 cm. GSV at knee measures 0.40 x0.46 cm. GSV proximal thigh measures 0.49 x 0.57 cm. GSV INCOMPETENT throughout for greater than GSV at knee measures 0.53 x 0.56 cm. 0.5 seconds. GSV above knee is INCOMPETENT for greater ASV proximal calf is INCOMPETENT for greater than 0.5 seconds. than 0.5 seconds and measures 0.74 x 0.72 cm. GSV below knee is competent. SSV proximal calf is INCOMPETENT for greater ASV distal thigh is INCOMPETENT for greater than 0.5 seconds and measures 0.44 x 0.48 cm. than 0.5 seconds and measures 0.55x 0.59 cm. Procedure SSV proximal calf is competent and measures Exam performed in department. 0.22 x 0.22 cm. This is a venous duplex using B-mode, color Distal thigh ASV appears to branch to GSV and flow and spectral Doppler. SSV. The exam was diagnostic. VL/Venous Duplex US - Samuel Extrem Interpretation Summary Deep veins of the bilateral lower extremities are patent and compressible segme ntally. There is no evidence of bilateral lower extremity deep vein thrombosis. The bilateral great saphenous veins appear patent and compressible segmentally. Positive for reflux in right popliteal vein, saphenofemoral junction, great sap henous vein throughout, accessory saphenous vein in calf, and small saphenous vein. Positive for reflux in left saphenofemoral junction, great saphenous vein above the knee, accessory saphenous vein. Ordering Physician: Mehul Sr Referring Physician: Lucas Guzman Performed By: Howie Greenberg RVT
== END | disposition home or self-care (01) ==
LOC: CVS 13:55
PROVIDERS: PCP Family Medicine; Referring Provider Podiatrist; Visit Provider Podiatrist
DX: I87.2 Venous insufficiency (chronic) (peripheral) (principal); M79.661 Pain in right lower leg
CPT/HCPCS: 93970

== ENCOUNTER 2024-04-16 08:21 | Day surgery (SDC) | payer MEDICARE, OTHER, SELFPAY ==
[2024-04-15 14:19] VITALS: BMI 25.7
[2024-04-16 08:45] LABS: Hematocrit 43.8 % (37-47); Hemoglobin 13.9 g/dL (12.0-15.0); Mean Corp Hgb Conc 31.7 g/dL (32-36); Mean Corpuscular Hgb 30.6 pg (27.0-32.0); Mean Corpuscular Volume 96.5 fL (81-99); Mean Platelet Vol. 10.6 fl (6.2-12.0); Platelet Count 213 K/mm3 (150-450); RBC Distribution Width CV 12.5 % (11.6-14.6); RBC Distribution Width SD 44.9 fl (35.1-43.9); Red Blood Count 4.54 M/mm3 (4.2-5.4); White Blood Count 6.2 K/mm3 (4.4-11.0)
[2024-04-16 08:58] LABS: Anion Gap 3 (5-15); BUN 12 mg/dL (7-18); BUN/Creat Ratio 14.2 RATIO (10-20); Chloride 111 mmol/L (98-107); Creatinine, Serum 0.84 mg/dL (0.55-1.02); EST Glomerular Filtration Rate 69 mL/min (>60); Est Glom Filt Rate - Afr Amer 84 mL/min (>60); Estimated Creatinine Clearance 56.75 ml/min; Glucose 101 mg/dL (74-106); Sodium Level 143 mmol/L (136-145)
--- NOTE | 2024-04-16 11:06 | PCM.HP.STD ---
HPI - General HPI Narrative ADAN BLANCAS, is a 78 F who presents with chronic venous insufficiency refractory to compression as well as prior unprovoked VTE. She has mixed deep and superficial reflux bilateral. [facility] Medical History Post-menopausal History of Holter monitoring Non-smoker History of edema History of irregular heartbeat History of echocardiogram History of stress test Cardiology follow-up encounter Vitamin D deficiency Palpitations DVT (deep venous thrombosis) Hyperlipidemia Patient travels Wears glasses Alcohol use Easy bruising High cholesterol Screening for intestinal cancer Hx of blood clots Fatigue Pulmonary emboli Osteoporosis Home Medications ?Medication ?Instructions ?Recorded ?Last Taken ?Type alendronate 10 mg tablet 10 mg PO DAILY 10/27/20 Unknown History apixaban 2.5 mg tablet (Eliquis) 2.5 mg PO BID 10/27/20 05/05/23 History rosuvastatin 5 mg tablet (Crestor) 5 mg PO QHS 10/27/20 Unknown History ascorbic acid (vitamin C) 500 mg 500 mg PO DAILY 08/19/22 Unknown History capsule calcium carbonate (Calcium 600) 600 mg PO DAILY 08/19/22 Unknown History cholecalciferol (vitamin D3) 50 50 mcg PO DAILY 08/19/22 Unknown History mcg (2,000 unit) tablet multivitamin with minerals 1 cap PO DAILY 08/19/22 Unknown History Allergy/AdvReac Type Severity Reaction Status Date / Time No Known Allergies Allergy Verified 01/24/24 16:05 Family History Father Leukemia Mother Skin cancer of trunk Heart disease Surgical History Hx of tonsillectomy Hx of wisdom tooth extraction Hx of dilation and curettage History of total left hip replacement Hx of colonoscopy Social History Smoking Status: Never smoker second hand exposure: No alcohol intake: current alcohol intake frequency: a few times a month Alcohol type: wine substance use type: does not use caffeine: Yes Type: coffee Number of servings: 2 what type of physical activity do you participate in: none and walking frequency: 1-2 times per week ROS Constitutional Constitutional: Denies chills, fever(s), frequent falls, lethargy or weakness Eyes Eyes: Denies blind spots, change in vision or loss of vision ENT HEENT: Denies bleeding gums, hoarseness or sore throat Cardiovascular Cardiovascular: Denies abdominal pain, bluish discoloration of hand/feet, chest pain with activity, claudication, cold extremities, cyanosis, dyspnea on exertion, erythema on extremities, irregular heart rhythm, leg edema, leg ulcers, numbness in extremities or weakness in extremities Respiratory/Chest Respiratory/Chest: Denies cough, excessive phlegm production, shortness of breath at rest, shortness of breath with exertion or wheezing Gastrointestinal Gastrointestinal: Denies anorexia, change in stool character, constipation, diarrhea, melena or rectal bleeding Genitourinary Genitourinary: Denies dysuria or hematuria Musculoskeletal Musculoskeletal: Denies abnormal gait Integumentary Integumentary: Reports other Details: ; Denies erythema, non-healing lesions or wounds Neurologic Neurologic: Denies abnormal speech, focal weakness, headache(s), loss of vision, numbness, paresthesias or sensory deficit Hematologic/Lymphatic Hematologic/Lymphatic: Denies easy bleeding, easy bruising or lymphadenopathy Vital Signs Vital Signs Vital Signs: Weight Weight: 174 lb Body Mass Index (BMI) 25.7 Physical Exam Const alert, oriented x3, no apparent distress and healthy appearing General Appearance: cooperative; Negative for combative or lethargic Orientation / Consciousness: awake Exam Limitations: no limitations HEENT Head and Scalp: normocephalic and atraumatic Eyes EOMs intact bilaterally General Eye: normal appearance of both eyes Neck full ROM, no lymphadenopathy and thyroid normal General: trachea midline; Negative for lymphadenopathy Thyroid: thyroid normal Lymph Lymphatic: Negative for no lymphadenopathy noted Resp normal respiratory effort and no use of accessory muscles Effort and Inspection: Negative for labored, stridor or audible wheezes Cardio regular rate and regular rhythm Back/Spine Cervical Spine: cervical ROM normal Extremity full ROM, normal capillary refill and no clubbing, cyanosis or edema Skin no rashes or lesions noted and no wounds Neuro oriented x3, CN's II-XII intact bilaterally, no focal motor deficits and no sensory deficits noted Psych thought process normal, cooperative, affect normal, speech normal and activity/motor behavior normal Results Lab / Micro Data 04/16/24 08:32 04/16/24 08:32 Labs: Laboratory Results - last 24 hr 04/16/24 08:32: WBC 6.2, RBC 4.54, Hgb 13.9, Hct 43.8, MCV 96.5, MCH 30.6, MCHC 31.7 L, RDW Std Deviation 44.9 H, RDW Coeff of Xavier 12.5, Plt Count 213, MPV 10.6, Sodium 143, Potassium 4.0, Chloride 111 H, Carbon Dioxide 29.0, Anion Gap 3 L, BUN 12, Creatinine 0.84, Estim Creat Clear Calc 56.75, Est GFR (MDRD) Af Amer 84, Est GFR (MDRD) Non-Af 69, BUN/Creatinine Ratio 14.2, Glucose 101, Calcium 9.0 Assessment & Plan Assessment/Plan (1) Venous insufficiency (chronic) (peripheral): PLAN: -venogram
--- NOTE | 2024-04-16 14:45 | OP.PCM_ITS ---
Operative Report (Standard) Operative Information Surgery/Procedure Performed: Venogram of the inferior vena cava Intravascular ultrasound evaluation of the inferior vena cava, bilateral common iliac veins, bilateral external iliac veins Angioplasty and stent of the left common iliac vein Surgeon: Delvis Galvan Date of Procedure: 04/16/24 Procedure Start Time: 11:00 Procedure Stop Time: 12:00 Pre-Operative Diagnosis: Venous insufficiency with unprovoked VTE, varicose veins with pain Post-Operative Diagnosis: Same Select all DRAINS/GRAFTS/IMPLANTS that apply: Implanted device Implanted device details: Bard VeNovo 12 x 120 stent Type of Anesthesia: Local and Sedation,Conscious Estimated Blood Loss: 3 Specimen collected: No Description of surgery: HPI: Patient is a 78-year-old female with unprovoked prior pulmonary embolism and longstanding venous insufficiency symptoms and painful varicosities. These been refractory to compression therapy and she presents now for venogram to assess central venous system as cause of both her venous insufficiency symptoms and also potentially her unprovoked VTE. Description of procedure: Upon obtaining informed consent and verification correct patient procedure site patient taken to the Pin [facility] Inspector where she was positioned prepped and draped in usual sterile fashion. Timeouts performed, sedation administered with Versed and fentanyl. Skin overlying the right common femoral vein was Nestabs 1% lidocaine the vessel accessed under ultrasound guidance with a micropuncture needle wire. This then exchanged for micropuncture sheath through which hand-injection ilio caval venogram was performed revealing satisfactory positioning no extravasation or dissection. This also revealed normal caliber right external and common iliac veins with no significant collateral visualization. Through the micropuncture sheath SuperSportson wire was advanced the micropuncture sheath exchanged for a short 8 [place]ian sheath. Through the 8 [place]ian sheath intravascular ultrasound probe was advanced recorded pullback performed of the IVC, right common iliac vein, right external iliac vein. This revealed no significant compression or occlusion. Next skin overlying the left common femoral vein was anesthetized 1% lidocaine the vessel accessed under ultrasound guidance with micropuncture needle wire. This was exchanged for micropuncture sheath. Hand-injection ilio caval venogram was performed revealing satisfactory positioning no extravasation or dissection. This revealed diminished contrast opacification of the superior aspect of the common iliac vein just prior to the confluence into the vena cava. This did not reveal any significant cross pelvic collateral flow. Through the micropuncture sheath a glide advantage wire was advanced and the micropuncture sheath exchanged for a 10 [place]ian sheath. Through the 10 [place]ian sheath intravascular Haddad probe was advanced and recorded pullback performed of the IVC, left common iliac vein, left external leg vein. This revealed significant compression of the common iliac vein of 55%. This meets threshold for indication to treat so the patient was heparinized allowed to circulate for 3 minutes. Intravascular sound probe was then utilized to bora the confluence, the area of compression, and the area of normal vessel inferiorly. Simultaneous hand-injection subtraction iliac IVC venogram was then performed to confirm the location of the confluence. A Bard Venovo 12 x 120 venous stent was then advanced in the position and deployed in the left common and external iliac vein with positioning that appeared satisfactory to treat the compression without extending into the vena cava. The delivery system was then withdrawn and a 12 mm Bard [place] balloon was then advanced and inflated to nominal across the entirety of the stented segment. Repeat simultaneous hand-injection venogram of the bilateral iliac veins and vena cava revealed satisfactory stent positioning with no extravasation dissection. The intravascular ultrasound probe was then readvanced via the left femoral access sheath and recorded pullback performed which confirmed satisfactory stent positioning with no residual compression and good stent wall apposition throughout. Wires and catheters then withdrawn and silk pursestring suture placed at each of the access sites after which the sheath were withdrawn and manual pressure held for 5 minutes until hemostasis was obtained. The patient was then taken to the recovery area with plan discharged home after bedrest. Surgical Findings: 54% compression of the proximal iliac vein Quantitative Researcher exhibit designer: No Complications Complications: No
== END 2024-04-16 14:00 | disposition home or self-care (01) ==
PROVIDERS: PCP Family Medicine; Referring Provider Surgery Trauma Surgery; Visit Provider Surgery Trauma Surgery
DX: I87.2 Venous insufficiency (chronic) (peripheral) (principal); I83.813 Varicose veins of bilateral lower extremities with pain; E78.00 Pure hypercholesterolemia, unspecified; K21.9 Gastro-esophageal reflux disease without esophagitis; E55.9 Vitamin D deficiency, unspecified; M79.89 Other specified soft tissue disorders; M81.0 Age-related osteoporosis without current pathological fracture; Z79.899 Other long term (current) drug therapy; Z86.718 Personal history of other venous thrombosis and embolism; Z86.711 Personal history of pulmonary embolism
CPT/HCPCS: 37239; 36010; 36415; 37238; 37252; 37253; 75825; 76937; 80048; 85027; 99152; 99153; C1753; C1769; C1876; C1894; Q9967; C1725

== ENCOUNTER → 2024-07-16 | Outpatient (CLI) | payer MEDICARE, OTHER, SELFPAY ==
[2024-07-16 15:20] LABS: Hematocrit 49.5 % (37-47); Hemoglobin 15.7 g/dL (12.0-15.0); Mean Corp Hgb Conc 31.7 g/dL (32-36); Mean Corpuscular Hgb 30.2 pg (27.0-32.0); Mean Corpuscular Volume 95.2 fL (81-99); Mean Platelet Vol. 10.8 fl (6.2-12.0); Platelet Count 281 K/mm3 (150-450); RBC Distribution Width CV 12.2 % (11.6-14.6); RBC Distribution Width SD 42.5 fl (35.1-43.9); White Blood Count 9.3 K/mm3 (4.4-11.0)
[2024-07-16 16:09] LABS: AST(SGOT) 22 U/L (15-37); Alanine Aminotransfer ALT/SGPT 28 U/L (13-56); Albumin, Serum 4.1 g/dL (3.2-5.0); Alkaline Phosphatase 85 U/L (45-117); Anion Gap 9 (5-15); BUN 17 mg/dL (7-18); BUN/Creat Ratio 17.3 RATIO (10-20); Calcium,Total 9.7 mg/dL (8.5-10.1); Chloride 104 mmol/L (98-107); Creatinine, Serum 0.98 mg/dL (0.55-1.02); EST Glomerular Filtration Rate 58 mL/min (>60); Est Glom Filt Rate - Afr Amer 70 mL/min (>60); Glucose 137 mg/dL (74-106); Potassium 4.2 mmol/L (3.5-5.1); Protein, Total 8.1 g/dL (6.4-8.2); Sodium Level 139 mmol/L (136-145)
== END | disposition home or self-care (01) ==
LOC: LAB 14:47
PROVIDERS: PCP Family Medicine; Referring Provider Internal Medicine Cardiovascular Disease; Visit Provider Internal Medicine Cardiovascular Disease
DX: R53.83 Other fatigue (principal); I95.1 Orthostatic hypotension; R00.2 Palpitations
CPT/HCPCS: 36415; 80053; 84443; 85027

== ENCOUNTER → 2024-07-22 | Outpatient (CLI) | payer MEDICARE, OTHER, SELFPAY | END | disposition home or self-care (01) | LOC: LABSPEC 13:36 | PROVIDERS: PCP Family Medicine; Referring Provider Family Medicine; Visit Provider Family Medicine | DX: N39.0 Urinary tract infection, site not specified (principal) | CPT/HCPCS: 87077; 87086; 87088; 87186 ==

== ENCOUNTER → 2024-07-25 | Outpatient (CLI) | payer MEDICARE, OTHER, SELFPAY ==
[2024-07-25 16:56] LABS: Hemoglobin A1c 5.3 % (3.8-5.6)
[2024-07-25 16:58] LABS: ALB/GLOB Ratio 1.2 RATIO (0.9-2.4); AST(SGOT) 23 U/L (15-37); Alanine Aminotransfer ALT/SGPT 26 U/L (13-56); Albumin, Serum 3.9 g/dL (3.2-5.0); Alkaline Phosphatase 76 U/L (45-117); Anion Gap 6 (5-15); BUN 11 mg/dL (7-18); Calcium,Total 9.5 mg/dL (8.5-10.1); Chloride 107 mmol/L (98-107); Cholesterol 155 mg/dL (200); EST Glomerular Filtration Rate 51 mL/min (>60); Est Glom Filt Rate - Afr Amer 62 mL/min (>60); Globulin 3.3 g/dL (2.2-4.2); Glucose 97 mg/dL (74-106); High Density Lipoprotein 73 mg/dL; Magnesium 2.2 mg/dL (1.6-2.6); Potassium 4.4 mmol/L (3.5-5.1); Protein, Total 7.2 g/dL (6.4-8.2); Sodium Level 137 mmol/L (136-145); T4 Free Direct 1.03 ng/dL (0.76-1.46); Triglycerides 117 mg/dL; Very Low Density Lipoprotein 23 mg/dL (5-40)
[2024-07-25 18:40] LABS: Absolute Lymphocyte Count 1.46 X10^3/uL (0.83-4.51); Basophil# 0.07 X10^3/uL; Eosinophil# 0.09 X10^3/uL; Eosinophils% 1.3 % (0-5); Hematocrit 44.5 % (37-47); Hemoglobin 14.3 g/dL (12.0-15.0); Lymphocyte # 1.46 X10^3/ul (0.83-4.51); Lymphocyte % 20.6 % (19-41); Mean Corp Hgb Conc 32.1 g/dL (32-36); Mean Corpuscular Hgb 30.6 pg (27.0-32.0); Mean Corpuscular Volume 95.1 fL (81-99); Mean Platelet Vol. 11.2 fl (6.2-12.0); Monocyte# 0.44 X10^3/uL; Monocyte% 6.2 % (0-10); NRBC Flagged by Analyzer 0 % (0-5); Neutrophil # 5.01 X10^3/uL (2.7-7.7); Neutrophil % 70.6 % (47-70); Platelet Count 246 K/mm3 (150-450); RBC Distribution Width CV 12.5 % (11.6-14.6); RBC Distribution Width SD 43.5 fl (35.1-43.9); Red Blood Count 4.68 M/mm3 (4.2-5.4); White Blood Count 7.1 K/mm3 (4.4-11.0)
[2024-07-26 10:33] LABS: Vitamin D,25 Hydroxy 33.2 ng/mL
[2024-07-28 19:07] LABS: Anti-Thyroglobulin AB < 1.0 IU/mL (0.0-0.9); Thyroglobulin, Serum Qt. 16.8 ng/mL (1.5-38.5); Thyroid Peroxidase AB < 9 IU/mL (0-34)
== END | disposition home or self-care (01) ==
LOC: MFPLAB 12:15
PROVIDERS: PCP Family Medicine; Referring Provider Family Medicine; Visit Provider Family Medicine
DX: R79.89 Other specified abnormal findings of blood chemistry (principal); E55.9 Vitamin D deficiency, unspecified; R00.2 Palpitations; R73.09 Other abnormal glucose
CPT/HCPCS: 36415; 80053; 80061; 82306; 83036; 83735; 84432; 84439; 85025; 86376; 86800

== ENCOUNTER → 2024-07-28 | Outpatient (CLI) | payer MEDICARE, OTHER, SELFPAY ==
--- NOTE | 2024-07-28 10:59 | ECHOD_ITS ---
Reason For Study: Other/Hypotension Procedure This was a 2D Doppler, Color Flow transthoracic echocardiogram. The study was technically difficult. Exam performed in department. Left Ventricle Normal size and thickness. The left ventricular ejection fraction is 60 %. Stage 1 diastolic dysfunction. Right Ventricle Mildly dilated right ventricle. Mild global right ventricular systolic dysfunction. Atria Normal left atrium. The right atrium is mildly enlarged. Mitral Valve Mild mitral annular calcification. Trivial mitral valve insufficiency. Tricuspid Valve Trivial tricuspid valve insufficiency. Right ventricular systolic pressure estimated to be 42 mmHg. Aortic Valve Trisinus/trileaflet aortic valve. Pulmonic Valve The pulmonic valve is not well visualized. Great Vessels The aortic root is not well visualized. Pericardium/Pleural No pericardial effusion. MMode/2D Measurements & Calculations LVIDd: 3.5 cm IVSd: 0.89 cm LAV(MOD-bp): 48.1 ml LVIDs: 2.6 cm LVPWd: 0.84 cm LAV(MOD-bp) Indexed: 24.5 ml/m2 RVDd: 3.9 cm FS: 26.0 % LAV(MOD-sp2): 49.1 ml LAV(MOD-sp4): 47.1 ml _ SV(MOD-sp4): 21.0 ml SV(sp4-el): 22.9 ml LVAd ap4: 17.3 cm2 LVLd ap4: 6.8 cm SI(MOD-sp4): 10.7 ml/m2 EDV(MOD-sp4): 37.0 ml EDV(sp4-el): 37.6 ml LVAs ap4: 10.5 cm2 LVLs ap4: 6.3 cm ESV(MOD-sp4): 16.0 ml ESV(sp4-el): 14.7 ml EF(MOD-sp4): 56.8 % EF(sp4-el): 61.0 % _ LA A4 area: 17.1 cm2 LA dimension(2D): 3.1 cm RA A4 area: 16.7 cm2 _ TAPSE: 2.1 cm Time Measurements MV dec time: 0.29 sec Doppler Measurements & Calculations MV E max fitz: 48.8 cm/sec Lat Peak E' Fitz: 9.0 cm/sec Med Peak E' Fitz: 7.7 cm/sec MV A max fitz: 88.0 cm/sec E/E' lat: 5.4 E/E' med: 6.3 MV E/A: 0.55 _ MV V2 max: 85.4 cm/sec MV P1/2t max fitz: 52.3 cm/sec Ao V2 max: 102.7 cm/sec MV max P.9 mmHg MV P1/2t: 106.4 msec Ao max P.2 mmHg MV V2 mean: 40.1 cm/sec Ao V2 mean: 72.3 cm/sec MV mean P.77 mmHg MV dec slope: 143.9 cm/sec2 Ao mean P.3 mmHg MV V2 VTI: 19.7 cm MVA(P1/2t): 2.1 cm2 Ao V2 VTI: 21.1 cm _ LV V1 max: 83.9 cm/sec TR max fitz: 258.2 cm/sec LV V1 max P.8 mmHg TR max P.7 mmHg ECHO/Echo Complete Interpretation Summary The left ventricular ejection fraction is 60 %. Stage 1 diastolic dysfunction. Mildly dilated right ventricle. Mild global right ventricular systolic dysfunction. The right atrium is mildly enlarged. Right ventricular systolic pressure estimated to be 42 mmHg. Ordering Physician: Fausto Hutton Referring Physician: Fausto Hutton Performed By: Cortez Gonsalves RCS
== END | disposition home or self-care (01) ==
LOC: CVS 10:59
PROVIDERS: PCP Family Medicine; Referring Provider Internal Medicine Cardiovascular Disease; Visit Provider Internal Medicine Cardiovascular Disease
DX: I95.1 Orthostatic hypotension (principal); R53.83 Other fatigue
CPT/HCPCS: 93306

== ENCOUNTER → 2024-07-31 | Outpatient (CLI) | payer MEDICARE, OTHER, SELFPAY ==
[2024-07-31 17:55] LABS: Anion Gap 4 (5-15); BUN 12 mg/dL (7-18); BUN/Creat Ratio 12.6 RATIO (10-20); Calcium,Total 8.7 mg/dL (8.5-10.1); Chloride 108 mmol/L (98-107); Creatinine, Serum 0.95 mg/dL (0.55-1.02); EST Glomerular Filtration Rate 60 mL/min (>60); Est Glom Filt Rate - Afr Amer 73 mL/min (>60); Glucose 94 mg/dL (74-106); Potassium 4.1 mmol/L (3.5-5.1); Sodium Level 141 mmol/L (136-145)
== END | disposition home or self-care (01) ==
LOC: MTLAB 15:55
PROVIDERS: PCP Family Medicine; Referring Provider Family Medicine; Visit Provider Family Medicine
DX: R94.4 Abnormal results of kidney function studies (principal)
CPT/HCPCS: 36415; 80048

== ENCOUNTER → 2024-10-22 | Outpatient (CLI) | payer MEDICARE, OTHER, SELFPAY ==
--- NOTE | 2024-10-22 09:07 | AAVD_ITS ---
Reason For Study Reason For Study: HX Lt CIV Stent Inferior Vena Cava Proximal inferior vena cava measures 1.15 x 1.18 cm. in the cross-sectional axis. Proximal inferior vena cava measures 1.19 cm. in the longitudinal axis. Mid inferior vena cava measures 1.27 x 1.84 cm. in the cross-sectional axis. Mid inferior vena cava measures 1.22 cm. in the longitudinal axis. Distal inferior vena cava measures 1.20 x 1.62 cm. in the cross-sectional axis. Distal inferior vena cava measures 1.11 cm. in the longitudinal axis. The inferior vena cava has spontaneous, phasic flow throughout. Left Common Iliac Vein Left common iliac vein measures 0.94 x 0.91 cm. in the cross-sectional axis. Left common iliac vein measures 1.02 cm. in the longitudinal axis. The left common iliac vein has spontaneous, phasic flow throughout. Stent Noted. Flow noted with and without LLE Augmentation. Right Common Iliac Vein Right common iliac vein measures 0.88 x 1.12 cm. in the cross-sectional axis. Right common iliac vein measures 1.18 cm. in the longitudinal axis. The right common iliac vein has spontaneous, phasic flow throughout. 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 Left iliac vein stent patent with normal venous flow pattern. Ordering Physician: Maria R eBllo Referring Physician: Lucas Guzman Performed By: Howie Greenberg RVT
== END | disposition home or self-care (01) ==
LOC: CVS 09:04
PROVIDERS: PCP Family Medicine; Referring Provider Physician Assistant; Visit Provider Physician Assistant
DX: Z48.812 Encounter for surgical aftercare following surgery on the circulatory system (principal)
CPT/HCPCS: 93978

== ENCOUNTER → 2024-11-18 | Outpatient (CLI) | payer MEDICARE, OTHER, SELFPAY ==
[2024-11-18 16:27] LABS: Bacteria 0 SEEN /hpf (None Seen); Mucous, Urine 0 SEEN /hpf (<or=2+)
[2024-11-18 19:00] LABS: ALB/GLOB Ratio 1.6 RATIO (0.9-2.4); AST(SGOT) 21 U/L (<=31); Alanine Aminotransfer ALT/SGPT 14 U/L (<=34); Alkaline Phosphatase 62 U/L (35-104); Anion Gap 10 (5-15); BUN 9 mg/dL (4-19); BUN/Creat Ratio 11.4 RATIO (10-20); Carbon Dioxide 23.9 mmol/L (21.0-32.0); Chloride 106 mmol/L (98-108); Cholesterol 148 mg/dL (<=200); Creatinine, Serum 0.76 mg/dL (0.70-1.20); EST Glomerular Filtration Rate 79 (>60); Globulin 2.6 g/dL (2.2-4.2); Glucose 91 mg/dL (70-99); High Density Lipoprotein 58 mg/dL; Low Density Lipoprotein Calc. 58 mg/dL; Potassium 4.3 mmol/L (3.3-5.1); Protein, Total 6.6 g/dL (5.9-8.4); Sodium Level 140 mmol/L (133-145); Total Bilirubin 0.42 mg/dL (0.00-1.30); Triglycerides 157 mg/dL; Very Low Density Lipoprotein 31 mg/dL (5-40); Vitamin D,25 Hydroxy 28.8 ng/mL (30-100); cholesterol:hdl ratio screen 2.53
[2024-11-18 19:46] LABS: Protein, Urine (Random) 13.8 mg/dL (0.0-12.0); Protein:Creat Ratio 185 mg/g CRE (0-200)
[2024-11-18 19:58] LABS: Color, Urine Yellow (Yellow); Glucose, Dipstick Normal (Normal); Ketone-Dipstick Negative (Negative); Leukocyte Esterase-Dipstick 500 /ul (Negative); Nitrite-Dipstick Negative (Negative); Occult Blood-Urine Negative /ul (Negative); Protein-Dipstick 15 mg/dl (Negative); Urine Bilirubin Dipstick Negative (Negative); Urine Clarity Clear (Clear); Urine Urobilinogen Normal (Normal)
[2024-11-18 21:48] LABS: Red Blood Cells-Urine 0-5 SEEN /hpf (0-5); Squamous Epithelial Cells - UA 0-5 SEEN /hpf (5-10); White Blood Cells 5-10 SEEN /hpf (0-5)
== END | disposition home or self-care (01) ==
LOC: MFPLAB 15:29
PROVIDERS: PCP Family Medicine; Referring Provider Family Medicine; Visit Provider Family Medicine
DX: E78.00 Pure hypercholesterolemia, unspecified (principal); E03.8 Other specified hypothyroidism; E55.9 Vitamin D deficiency, unspecified
CPT/HCPCS: 36415; 80053; 80061; 81001; 82306; 82570; 84156; 84439; 84443

== ENCOUNTER → 2025-01-13 | Outpatient (CLI) | payer MEDICARE, OTHER, SELFPAY | END | disposition home or self-care (01) | LOC: SL 20:06 | PROVIDERS: PCP Family Medicine; Referring Provider Student in an Organized Health Care Education/Training Program; Visit Provider Student in an Organized Health Care Education/Training Program | DX: G47.10 Hypersomnia, unspecified (principal); R06.00 Dyspnea, unspecified; Z87.898 Personal history of other specified conditions | CPT/HCPCS: 95810 ==

== ENCOUNTER → 2025-05-12 | Outpatient (CLI) | payer MEDICARE, OTHER, SELFPAY ==
--- OUTSIDE RECORDS SUMMARY | 2025-05-12 18:48 | XMS RPT_ITS | CCD ---
Author Organization [facility] [place] CliniSypr Care Team Providers Care Law Enforcement Officer Name Role Phone Lucas Guzman Primary Care Provider [phone] Dr. Lucas Guzman Primary Care Provider [phone] Dr. Lucas Guzman Referring Provider Dr. Fausto Hutton Attending Provider Moni Madrigal Attending Provider Unavailable Dr. Fausto Hutton Referring Provider Dr. Fausto Hutton Other Provider Dr. Lucas Guzman Primary Care Provider [phone] Dr. Lucas Guzman Referring Provider Dr. Fausto Hutton Attending Provider Dr. Lucas Guzman Primary Care Provider [phone] Dr. Lucas Guzman Referring Provider Dr. Keenan Anglin Attending Provider [phone] Keenan Anglin Other Provider Dr. Lucas Guzman Primary Care Provider [phone] Dr. Delvis Galvan Attending Provider Dr. Mehul Sr Referring Provider Dr. Lucas Guzman MD Primary Care Provider [phone] Dr. Fausto Hutton MD Attending Provider Dr. Fausto Hutton MD Referring Provider Dr. Lucas Guzman MD Attending Provider [phone] Thomas SOTO, Dr. Lucas Martínez Referring Provider Eugenia KOENIG, Maria R Attending Provider Maria R Benz Referring Provider [phone] Mandy SOTO, Dr. Edmondson Attending Provider [phone] Thomas SOTO, Dr. Lucas Martínez Primary Care Provider [phone] Thomas SOTO, Dr. Lucas Martínez Attending Provider Thomas SOTO, Dr. Lucas Martínez Referring Provider Noam Crandall Attending Provider [phone] Noam Crandall Referring Provider Jessica CLINICAL SOCIAL WORK AIDE-C, [place] Attending Provider Schinner, Lucas E Primary Care Unavailable Brennen, Fausto Attending Unavailable Bello, Maria R Attending Unavailable Schinner, Lucas E Primary Care Unavailable Bello, Maria R Referring Unavailable Schinner, Lucas E Referring Unavailable Schinner, Lucas E Attending Unavailable Schinner, Lucas E Primary Care Unavailable Salina Lopez NP Attending Unavailable Schinner, Lucas E Primary Care Unavailable Schinner, Lucas E Referring Unavailable Schinner, Lucas E Primary Care Unavailable Delvis Galvan Attending Unavailable Bello, Maria R Referring Unavailable Schinner, Lucas E Primary Care Unavailable Schinner, Lucas E Referring Unavailable DemiterNoam Attending Unavailable Salina Lopez NP Attending Unavailable Schinner, Lucas E Primary Care Unavailable Schinner, Lucas E Referring Unavailable Schinner, Lucas E Referring Unavailable Brennen, Fausto Attending Unavailable Schinner, Lucas E Primary Care Unavailable Schinner, Lucas E Referring Unavailable Bello, Maria R Attending Unavailable Schinner, Lucas E Primary Care Unavailable Bello, Maria R Referring Unavailable Bello, Maria R Attending Unavailable Schinner, Lucas E Primary Care Unavailable Schinner, Lucas E Referring Unavailable Schinner, Lucas E Attending Unavailable Schinner, Lucas E Primary Care Unavailable Mignoniter, Noam Referring Unavailable Noam Romero Attending Unavailable Brennen, Fausto Referring Unavailable Brennen, Fausto Attending Unavailable Schinner, Lucas E Primary Care Unavailable Brennen, Fausto Referring Unavailable Brennen, Fausto Attending Unavailable Schinner, Lucas E Primary Care Unavailable Schinner, Lucas E Primary Care Unavailable Lucas Guzman Referring Unavailable Lucas Guzman Attending Unavailable Lucas Guzman Primary Care Unavailable Lucas Guzman Referring Unavailable Lucas Guzman Attending Unavailable Medications Current Medications Medication Drug Class(es) Dates Sig (Normalized) Sig (Original) alendronic acid 10 mg oral tablet (20 sources) Bisphosphonate Start: 09-30-2019 take 1 tablet by mouth once daily Alendronate 10 mg tablet Active 10 mg PO DAILY October 27, 2020 12:00am Comment on above: TAKE 1 TABLET EVERY MORNING WITH A GLASS OF WATER ON AN EMPTY STOMACH apixaban 2.5 mg oral tablet (20 sources) Factor Xa Inhibitor Start: 09-30-2019 take 1 tablet by mouth twice daily Apixaban (Eliquis) 2.5 mg tablet Active 2.5 mg PO TWICE A DAY October 27, 2020 12:00am Comment on above: Take 2.5 mg by mouth . Take 2.5 mg by mouth twice daily. cholecalciferol 0.05 mg oral tablet (15 sources) Vitamin D Start: 08-19-2022 take 1 tablet by mouth once daily Cholecalciferol (Vitamin D3) 50 mcg (2,000 unit) tablet Active 50 ug PO DAILY August 19, 2022 1:00am Cholecalciferol, Vitamin D3, 25 mcg (1,000 unit) cap Take 2,000 Units by mouth. 0 Active Comment on above: Take 2,000 Units by mouth. Comp.Stocking,Knee,Long ,Medium misc (4 sources) Start: 07-16-2024 Comp.Stocking,Knee,Silvio g,Medium misc Active 0 .Route 12 July 16, 2024 1:00am BLE Edema As directed; 20-40 mmHg Start: 07-16-2024 Comp.Stocking, Knee,Long,Medium misc Active 0 .Route July 16, 2024 1:00am As directed; 20-40 mmHg Multivitamin With Minerals (8 sources) Start: 08-19-2022 take 1 capsule by mouth once daily Multivitamin With Minerals Active 1 CAP PO DAILY August 19, 2022 12:00am Start: 08-19-2022 take 1 capsule by [facility] once daily Multivitamin With Minerals Active 1 CAP PO DAILY August 19, 2022 1:00am Multivitamin With Minerals capsule (4 sources) Start: 08-19-2022 Multivitamin W ith Minerals capsule Active 1 NMA PO DAILY August 19, 2022 1:00am rosuvastatin calcium 5 mg oral tablet (20 sources) HMG-CoA Reductase Inhibitor Start: 03-31-2020 take 1 tablet by mouth at bedtime Rosuvastatin (Crestor) 5 mg tablet Active 5 mg PO AT BEDTIME October 27, 2020 12:00am Completed/Discontinued Medications Medication Drug Class(es) Dates Sig (Normalized) Sig (Original) ascorbic acid 500 mg oral capsule (15 sources) Vitamin C Start: 08-19-2022 End: 12-22-2024 take 1 capsule by mouth once daily Ascorbic Acid (Vitamin C) 500 mg capsule Discontinued 500 mg PO DAILY August 19, 2022 1:00am December 22, 2024 11:13am Ascorbic Acid 1, 000 mg tablet Take 1,000 mg by mouth. 0 Active Comment on above: Take 1,000 mg by tim th. calcium carbonate 1500 mg oral tablet (12 sources) Start: 08-19-2022 End: 12-22-2024 take 1 tablet by mouth once daily Calcium Carbonate (Calcium 600) 600 mg calcium (1,500 mg) tablet Discontinued 600 mg PO DAILY August 19, 2022 1:00am December 22, 2024 11:13am calcium/magnesium/zinc (EXGSKZP-NVAAHXCOWN-IP NC) 333-133-5 mg tab (3 sources) calcium/magnesiu m/zin c (MUATAEM-XBJQQVRXCW-H INC) 333-133-5 mg tab Take 3 tablets by mouth. 0 Active Comment on above: Take 3 tablets by mo ut. Multivitamin capsule (3 sources) Multivitamin cap bay Take 1 capsule by mouth. 0 Active Comment on above: Take 1 capsule by mo uth. Problems Active Problems Problem Classification Problem Date Documented Da te Episodic/Chronic Blindness and vision defects (2 sources) Bilateral hyperopia of eyes; Translations: [Hypermetropia, bilateral] Episodic Cardiac dysrhythmias (19 sources) Palpitations; Translations: [Palpitations] 08-22-2022 Episodic Cataract (1 source) Bilateral senile combined form cataracts of eyes; Translations: [Combined forms of age-related cataract, bilateral] Chronic Disorders of lipid metabolism (20 sources) Hyperlipidemia; Translations: [Hyperlipidemia, unspecified] Onset: 07-16-2024 08-19-2022 Chronic Disorders of teeth and jaw (17 sources) Loss of teeth due to extraction; Translations: [Partial loss of teeth, unspecified cause, unspecified class] 08-19-2022 Episodic Immunizations and screening for infectious disease (17 sources) Contact with and (suspected) exposure to other viral communicable diseases; Translations: [Contact with or suspected exposure to other viral communicable disease] 08-19-2022 Episodic Mycoses (1 source) Onychomycosis; Translations: [Tinea unguium] Episodic Osteoporosis (17 sources) Osteoporosis; Translations: [Age-related osteoporosis without current pathological fracture] 08-19-2022 Chronic Other aftercare (2 sources) Encounter for surgical aftercare following surgery on the circulatory system; Translations: [Encounter for surgical aftercare following surgery on the circulatory system] Onset: 10-27-2024 Episodic Other bone disease and musculoskeletal deformities (1 source) Subungual exostosis; Translations: [Other specified disorders of bone, unspecified site] Episodic Other circulatory disease (7 sources) Orthostatic hypotension; Translations: [Orthostatic hypotension] 07-16-2024 Episodic Other connective tissue disease (17 sources) History of total hip arthroplasty; Translations: [Presence of left artificial hip joint] 08-19-2022 Chronic Comment on above: 10/2008 Other diseases of veins and lymphatics (7 sources) Peripheral venous insufficiency; Translations: [Venous insufficiency (chronic) (peripheral)] 09-25-2023 Episodic Comment on above: Venous Duplex 4:- R popliteal vein incompetent; R SFJ, GSV, ASV, SSV incompetent-L SFJ, GSV, ASV incompetent Other eye disorders (1 source) Malposition of eyelashes; Translations: [Trichiasis without entropion right upper eyelid] Episodic Other skin disorders (1 source) Dystrophia unguium; Translations: [Nail dystrophy] Episodic Phlebitis; thrombophlebitis and thromboembolism (20 sources) H/O: thrombosis; Translations: [Personal history of other venous thrombosis and embolism] 08-19-2022 Episodic Residual codes; unclassified (1 source) Hypersomnia, unspecified; Translations: [Hypersomnia, unspecified] Onset: 01-19-2025 Chronic Residual codes; unclassified (17 sources) Other specified health status; Translations: [Patient travels] 08-19-2022 Episodic Residual codes; unclassified (17 sources) History of colonoscopy; Translations: [Other specified postprocedural states] 08-19-2022 Episodic Comment on above: 2006 Residual codes; unclassified (4 sources) Edema of lower extremity; Translations: [Localized edema] 09-25-2023 Episodic Retinal detachments; defects; vascular occlusion; and retinopathy (1 source) Nonexudative age-related macular degeneration; Translations: [Nonexudative age-related macular degeneration, bilateral, early dry stage] Chronic Past or Other Problems Problem Classification Problem Date Documented Date Episodic/Chronic Malaise and fatigue (20 sources) Fatigue; Translations: [Other fatigue] Onset: 08-04-2024 08-19-2022 Episodic Other circulatory disease (1 source) Orthostatic hypotension; Translations: [Orthostatic hypotension] Onset: 08-11-2024 Episodic Other diseases of veins and lymphatics (1 source) Venous insufficiency (chronic) (peripheral); Translations: [Venous insufficiency (chronic) (peripheral)] Onset: 07-16-2024 Episodic Other lower respiratory disease (1 source) Dyspnea, unspecified; Translations: [Dyspnea, unspecified] Onset: 12-22-2024 Episodic Other screening for suspected conditions (not mental disorders or infectious disease) (20 sources) Patient encounter status; Translations: [Encounter for screening for malignant neoplasm of intestinal tract, unspecified] Onset: 08-11-2024 08-19-2022 Episodic Pulmonary heart disease (20 sources) Pulmonary embolism; Translations: [Other pulmonary embolism without acute cor pulmonale] Onset: 07-16-2024 08-22-2022 Episodic Comment on above: 2017 Residual codes; unclassified (1 source) Personal history of other specified conditions; Translations: [Personal history of other specified conditions] Onset: 12-22-2024 Episodic Urinary tract infections (1 source) Urinary tract infection, site not specified; Translations: [Urinary tract infection, site not specified] Onset: 08-06-2024 Episodic Results Test Name Value Interpretation Reference Range Facility Pulmonary Visit Reporton Pulmonary Visit Report [facility] Pulmonary Medicine [facility] [address] [place] [address] OFFICE VISIT Date of Service: 01/28/25 MR#: [id number] Acct: [id number] Name: ADAN RYAN Rep #: [id number] : 1945 Provider: JOSE Lopez Age/Sex: 79/F [place] [facility] [place] Status: Signed Assessment and Plan Assessment and Plan (1) JULIANNA (obstructive sleep apnea): Status: Acute Comment: AHI 8.7 Plan: New. Lengthy discussion about the pathophysiology of obstructive sleep apnea. We discussed the risks of untreated sleep apnea as well as the benefits. We discussed treatment options, such as positional therapy, oral device or PAP therapy. After discussing the benefits of each type of treatment, the patient has decided to proceed with PAP therapy. I am going to order AutoPap 5 to 15 cm of water. Initial goal will be to wear PAP at least 4 hours nightly. Ultimately, it should be worn any time spent sleeping. I have encouraged the patient to call the office with any difficulties acclimating to PAP therapy. Follow up in the office in 3 months, at which time I anticipate the patient will be on PAP therapy for 4-6 weeks. (2) Palpitations: Status: Chronic Plan: This complicates exam, plan, care and prognosis. Given that the patient was recently identified as having obstructive sleep apnea that has yet to be treated, this could have predisposed her to the palpitation she has been experiencing. I have asked her to monitor the frequency of the palpitations as she begins compliance with PAP therapy. I believe, compliance with PAP therapy would reduce or completely alleviate the palpitation she has been experiencing. Plan Details Additional Comments: This note was generated with [employer] dictation software. It may contain incorrect words, spelling, and punctuation that were not noted in checking the note before signing. Follow Up: 3 Months HPI Sleep problems Chief Complaint: test results HPI Comments Details: This patient presents to the office today for initial consultation regarding concern for obstructive sleep apnea. She is ambulatory and on room air. The patient reports that she has been known to snore for years. If the patient is able to get 8 hours of sleep she feels fairly rested when she wakes up in the morning. She is having at least 1 episode of nocturia nightly. She does report difficulty with dry mouth in the morning. She is not having morning headaches. She does nap daily for about 20 to 60 minutes. She is technically retired but spends a lot of time volunteering and some sort of nonprofit organization dealing with international support of [facility]. 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 The last full-time job that she had was also as an executive housekeeper and has done some help with socioeconomic studies. She has never seen a gasoline service attendant. She is a lifelong never smoker. She is never been prescribed an inhaler. Past medical family history is significant for: Mother lived to the age of 95, had venous insufficiency, some cognitive disabilities when she was later in life, then she ended up getting some rare cancer. Father at the age of 60 due to leukemia. She has a sister who has schizophrenia, COPD, dependent on supplemental oxygen and has an EF of 45%. She has a sister that at the age of 59 due to viral pneumonia. She has a brother who has very good health. No biological children. She denies any difficulty with shortness of breath. She denies any cough, sputum production or hemoptysis. She is not have any wheezing, chest tightness, chest pain or palpitations. She denies any fever, chills or body aches. Test results personally reviewed with the patient: Polysomnogram completed on January 13, 2025. Overall AHI is 8.7 events per hour, elevated to 16.4 events per hour in the supine position and 64.2 events per hour in the REM stage of sleep. Impression is mild obstructive sleep apnea. Recommendation is to consider auto adjusting CPAP, dental device or positional modification. Intake Vital Signs 12/22/24 11:16 01/28/25 08:01 Height 5 ft 9 in 5 ft 9 in Weight: 183 lb BMI 27.0 BP 95/61 Blood Pressure Location Lt brachial Position Sitting Respiration 18 Pulse 76 Pulse Source Monitor Temp 97.5 F L Temperature Source Temporal Artery Pulse Oximetry (%) 97 Oxygen Delivery Method room air Intake Visit Reasons: Sleep problems Matrix Plater Required: No Accompanied by: Self Allergies No Known Allergies Allergy (Verified 01/28/25 09:48) Medications ???Medication ???Instructions ???Recorded ???Confirmed ???Type alendronate 10 mg tablet 10 mg PO DAILY 10/27/20 01/28/25 H istory apixaban 2.5 mg tablet (Eliquis) 2.5 mg (more content not included)... Normal [facility] Cardiology Visit Reporton Cardiology Visit Report [facility] [address] [place] [address] OFFICE VISIT Date of Service: 12/22/24 MR#: [id number] Acct: [id number] Name: ADAN RYAN Rep #: [id number] : 1945 Provider: ARYA Watson Age/Sex: 79/F [place] [facility] [place] Status: Signed HPI HPI History of Present Illness Details: Adan Ryan is an 79-year-old female who presents to office today for follow-up for monitoring her cardiovascular health. She has a history of orthostatic hypotension, pulmonary embolism, lower extremity venous insufficiency and dyslipidemia. Upon presentation today, patient reports palpitations noticed a few times per week. She reports an episode this morning that lasted 2 minutes this morning that is described as fluttering and rapid heart rate. She notices fatigue described as feeling really sleepy after lunch every day and finds herself taking a nap. She reports noticing waking up gasping for air in the middle night and reports that she snores nightly. STOP-BANG Assessment: 1. Do you snore? [yes] 2. Are you frequently tired during the day? [yes] 3. Have you been observed gasping or choking while asleep? [yes] 4. Do you have high blood pressure? [no] 5. BMI - greater than 35kg/m2? [no] 6. Age - over 50 years old? [yes] 7. Neck Circumference - greater than 37 cm for females or 40 cm for males? [no] 8. Gender - male? [no] Total STOP-BANG score = [3] which indicates high risk for obstructive sleep apnea (yes to 3 or more questions = high risk of sleep apnea). Her bilateral LE edema is reported to not be as bad right now, worsens with traveling to hotter climate and she does participate in more walking there. She is working on getting new compression socks. She follows with vascular. Further ROS below. Intake Vital Signs 07/16/24 08:32 12/22/24 11:14 12/22/24 11:16 Height 5 ft 9 in 5 ft 9 in 5 ft 9 in Weight: 181 lb BMI 26.7 BP 103/63 Blood Pressure Location Lt brachial Position Sitting Respiration 18 Pulse 92 Pulse Source Monitor Pulse Oximetry (%) 97 Intake Visit Reasons: 6 MFU Matrix Plater Required: No Is patient in pain?: No Allergies No Known Allergies Allergy (Verified 12/22/24 11:13) Medications ???Medication ???Instructions ???Recorded ???Confirmed ???Type alendronate 10 mg tablet 10 mg PO DAILY 10/27/20 12/22/24 H istory apixaban 2.5 mg tablet (Eliquis) 2.5 mg PO BID 10/27/20 12/22/24 Hi story rosuvastatin 5 mg tablet (Crestor) 5 mg PO QHS 10/27/20 12/22/24 Hi story cholecalciferol (vitamin D3) 50 50 mcg PO DAILY 08/19/22 12/22/24 History mcg (2,000 unit) tablet multivitamin with minerals 1 cap PO DAILY 08/19/22 12/22/24 H istory comp.stocking,knee,long,me dium #12 ea 07/16/24 07/22/24 Rx Have you fallen in the past year?: No PFSH Medical History Post-menopausal History of Holter monitoring Non-smoker History of edema History of irregular heartbeat History of echocardiogram History of stress test Cardiology follow-up encounter Vitamin D deficiency Palpitations DVT (deep venous thrombosis) Hyperlipidemia Patient travels Wears glasses Alcohol use Easy bruising High cholesterol Screening for intestinal cancer Hx of blood clots Fatigue Pulmonary emboli Osteoporosis Surgical History Hx of tonsillectomy Hx of wisdom tooth extraction Hx of dilation and curettage History of total left hip replacement Hx of colonoscopy Family History Father Leukemia Mother Skin cancer of trunk Heart disease Social History Smoking Status: Never smoker second hand exposure: No alcohol intake: current alcohol intake frequency: a few times a month Alcohol type: wine substance use type: does not use caffeine: Yes Type: coffee Number of servings: 2 what type of physical activity do you participate in: none and walking frequency: 1-2 times per week ROS Const Const: Positive for fatigue; Negative for weakness, headache(s) or frequent falls Eyes Eyes: Negative for blurry vision ENT ENT: Negative for headache(s), dizziness or Nosebleed/epistaxis Cardio Chest Pain: No Palpitations: No Edema: Bilateral Muscle aches with walking: None Resp Respiratory: Negative for SOB with activity, SOB at rest or SOB orthopnea SOB lying down GI GI: Negative nausea, vomiting, heartburn, bright, red blood in stools or black,tarry stools : Negative for hematuria Neuro Neuro: Negative for dizziness, lightheadedness, near syncope, syncope, frequent falls, headache(s), weakness or blurry vision (more content not included)... Normal [facility] Anion gap in Serum or Plasma Ordered By: Lucas Guzman on 11-18-2024 Anion gap [Moles/Vol] 10 mmol/L 5-15 [facility] BUN/creatinine ratioOrdered By: Lucas Guzman on 11-18-2024 Urea nitrogen/Creatinine [Mass ratio] 11.4 mg/mg 10-20 [facility] Bilirubin Test strip Ql (U)O rdered By: Lucas Guzman on 11-18-2024 Bilirubin Ql (U) Negative Negative [facility] Bilirubin, totalOrdered By: Lucas Guzman on 11-18-2024 Bilirubin [Mass/Vol] 0.42 mg/dL Normal 0.00-1.30 [facility] Comment on above: Order Comment: Order Date: 08/22/24Order Info: [id number] - CMPOrder Info: [id number] - LIPIDOrder Info: [id number] - TSHOrder Info: [id number] - T4F Performed By: #### M 100.2200 #### [facility] Laboratory [facility] [address] [place], [place], [address] Calculated very low density lipoprotein (VLDL) cholesterol measurementOrdered By: Lucas Guzman on 11-18-2024 Calculated very low density lipoprotein (VLDL) cholesterol measurement 31 mg/dL 5-40 [facility] Carbon dioxide, total [Moles /volume] in Central venous bloodOrdered By: Lucas Guzman on 11-18-2024 CO2 [Moles/Vol] 23.9 mmol/L Normal 21.0-32.0 [facility] Comment on above: Order Comment: Order Date: 08/22/24Order Info: [id number] - CMPOrder Info: [id number] - LIPIDOrder Info: [id number] - TSHOrder Info: [id number] - T4F Performed By: #### M 100.2200 #### [facility] Laboratory [address] [place], [place], [id number] Chloride assayOrdered By: Helen Guzman on 11-18-2024 Chloride [Moles/Vol] 106 mmol/L Normal 98-108 [facility] Comment on above: Order Comment: Order Date: 08/22/24Order Info: [id number] - CMPOrder Info: [id number] - LIPIDOrder Info: [id number] - TSHOrder Info: [id number] - T4F Performed By: #### M 100.2200 #### [facility] [address] [place], [place], [id number] Comprehensive Metabolic Prof ilon 11-18-2024 ALK PHOS 62 U/L Normal 35-104 [facility] Comment on above: Order Comment: Order Date: 08/22/24Order Info: [id number] - CMPOrder Info: [id number] - LIPIDOrder Info: [id number] - TSHOrder Info: [id number] - T4F Performed By: #### M 100.2200 #### [facility] [address] [place], [place], [id number] BUN/CRE 11.4 RATIO Normal 10-20 [facility] Comment on above: Order Comment: Order Date: 08/22/24Order Info: [id number] - CMPOrder Info: [id number] - LIPIDOrder Info: [id number] - TSHOrder Info: [id number] - T4F Performed By: #### M 100.2200 #### [facility] [address] [place], [address] GAP 10 Normal 5-15 [facility] Comment on above: Order Comment: Order Date: 08/22/24Order Info: [id number] - CMPOrder Info: [id number] - LIPIDOrder Info: [id number] - TSHOrder Info: [id number] - T4F Performed By: #### M 100.2200 #### [facility] [address] [place], [address] Potassium [Moles/Vol] 4.3 mmol/L Normal 3.3-5.1 [facility] [place] Comment on above: Order Comment: Order Date: 08/22/24Order Info: [id number] - CMPOrder Info: [id number] - LIPIDOrder Info: [id number] - TSHOrder Info: [id number] - T4F Performed By: #### M 100.2200 #### [facility] [address] [place], [place], [address] T PROT 6.6 g/dL Normal 5.9-8.4 [facility] Comment on above: Order Comment: Order Date: 08/22/24Order Info: [id number] - CMPOrder Info: [id number] - LIPIDOrder Info: [id number] - TSHOrder Info: [id number] - T4F Performed By: #### M 100.2200 #### [facility] [address] [place], [address] Comprehensive Metabolic Prof ilOrdered By: Lucas Guzman on 11-18-2024 AST [Catalytic activity/Vol] 21 U/L Normal <=31 [facility] Comment on above: Order Comment: Order Date: 08/22/24Order Info: [id number] - CMPOrder Info: [id number] - LIPIDOrder Info: [id number] - TSHOrder Info: [id number] - T4F Performed By: #### M 100.2200 #### [facility] [address] [place], [place], [address] Glomerular filtration rate ( GFR) estimation/1.73 sq m using serum, plasma, or whole bOrdered By: Lucas Guzman on 11-18-2024 GFR/1.73 sq M.predicted among non-blacks MDRD (S/P/Bld) [Vol rate/Area] 79 mL/min/{1.73_m2} Normal >60 [facility] Comment on above: mL/min/1.73m2 CKD-EP I Creatinine Equation (2020) Order Comment: Order Date: 08/22/24Order Info: [id number] - CMPOrder Info: [id number] - LIPIDOrder Info: 3 - TSHOrder Info: [id number] T4 Result Comment: mL/m in/1.73m2 CKD-EPI Creatinine Equation (2020) Performed By: #### M 100.2200 #### [facility] [address] [place], [place], [id number] Ketones Test strip Ql (U)Ord ered By: Lucas Guzman on 11-18-2024 Ketones Ql (U) Negative Negative [facility] LDL calc ser/plasOrdered By: Lucas Guzman on 11-18-2024 Cholesterol in LDL [Mass/Vol] 58 mg/dL Normal [facility] Comment on above: Viqdjwboow=831-634 m g/dL & Higher Crzl=768 mg/dL or greater Order Comment: Order Date: 08/22/24Order Info: [id number] - CMPOrder Info: [id number] - LIPIDOrder Info: 3 - TSHOrder Info: [id number] Result Comment: Bord iiuzun=945-491 mg/dL Higher Tebf=080 mg/dL or greater Performed By: #### M 100.2200 #### [facility] [address] [place], [place], [address] Lipid Profileon 11-18-2024 CHOL:HDL 2.53 Normal [facility] Comment on above: Order Comment: Order Date: 08/22/24Order Info: [id number] - CMPOrder Info: [id number] - LIPIDOrder Info: [id number] - TSHOrder Info: [id number] - T4F Performed By: #### M 100.2200 #### [facility] [address] [place], [place], [id number] Cholesterol in VLDL [Mass/Vol] 31 mg/dL Normal 5-40 [facility] Comment on above: Order Comment: Order Date: 08/22/24Order Info: [id number] - CMPOrder Info: [id number] - LIPIDOrder Info: [id number] - TSHOrder Info: [id number] - T4F Performed By: #### M 100.2200 #### [facility] [address] [place], [place], [address] Microscopic analysis of urin e for red blood cells (RBC)Ordered By: Lucas Guzman on 11-18-2024 Microscopic analysis of urine for red blood cells (RBC) 0-5 SEEN /hpf 0-5 [facility] Mucus LM Ql (Urine sed)Order ed By: Lucas Guzman on 11-18-2024 Mucus Ql (Urine sed) 0 SEEN /hpf [facility] [place] Nitrite Test strip Ql (U)Ord ered By: Lucas Guzman on 11-18-2024 Nitrite Ql (U) Negative Negative [facility] Potassium measurement (mass/ volume)Ordered By: Lucas Guzman on 11-18-2024 Potassium (Unsp spec) [Mass/Vol] 4.3 mmol/L 3.3-5.1 [facility] Protein Test strip Ql (U)Ord ered By: Lucas Guzman on 11-18-2024 Protein Ql (U) 15 mg/dl High Negative [facility] Protein+Creatinine Ratio,Uri neon 11-18-2024 PROT:CRE RATIO 185 mg/g CRE Normal 0-200 [facility] Comment on above: Performed By: #### M 100.2200 #### [facility] [address] [place], [place], [id number] Protein (U) [Mass/Vol] 13.8 mg/dL High 0.0-12.0 [facility] Comment on above: Performed By: #### M 100.2200 #### [facility] [address] [place], [place], [id number] UR CREAT 74.40 mg/dL Normal 28.00-217.0 0 [facility] Comment on above: Performed By: #### M 100.2200 #### [facility] [address] [place], [place], [address] Random urine creatinine parisa urement (mass/volume)Ordered By: Lucas Guzman on 11-18-2024 Creatinine Unsp time (U) [Mass/Vol] 74.40 mg/dL 28.00-217.0 0 [facility] Screening total cholesterol/ high density lipoprotein (HDL) cholesterol ratioOrdered By: Lucas Guzman on 11-18-2024 Cholesterol.total/Chol esterol in HDL [Mass ratio] 2.53 {ratio} [facility] Serum creatinine measurement (mass/volume)Ordered By: Lucas Guzman on 11-18-2024 Creatinine [Mass/Vol] 0.76 mg/dL Normal 0.70-1.20 [facility] [place] Comment on above: Order Comment: Order Date: 08/22/24Order Info: [id number] - CMPOrder Info: [id number] - LIPIDOrder Info: [id number] - TSHOrder Info: [id number] - T4F Performed By: #### M 100.2200 #### [facility] [address] [place], [place], [address] Serum globulin measurementOr dered By: Lucas Guzman on 11-18-2024 Globulin (S) [Mass/Vol] 2.6 g/dL Normal 2.2-4.2 [facility] Comment on above: Order Comment: Order Date: 08/22/24Order Info: [id number] - CMPOrder Info: [id number] - LIPIDOrder Info: [id number] - TSHOrder Info: [id number] - T4F Performed By: #### M 100.2200 #### [facility] [address] [place], [place], [address] Serum glucose measurement (m ass/volume)Ordered By: Lucas Guzman on 11-18-2024 Glucose [Mass/Vol] 91 mg/dL Normal 70-99 [facility] Comment on above: Order Comment: Order Date: 08/22/24Order Info: [id number] - CMPOrder Info: [id number] - LIPIDOrder Info: 6-3 - TSHOrder Info: [id number] - T4F Performed By: #### M 100.2200 #### [facility] [address] [place], [address] Serum or plasma alanine swenson otransferase (ALT) measurementOrdered By: Lucas Guzman on 11-18-2024 ALT [Catalytic activity/Vol] 14 U/L Normal <=34 [facility] Comment on above: Order Comment: Order Date: 08/22/24Order Info: [id number] - CMPOrder Info: [id number] - LIPIDOrder Info: [id number] - TSHOrder Info: 7 - T4F Performed By: #### M 100.2200 #### [facility] [address] [place], [address] Serum or plasma albumin parisa urement (mass/volume)Ordered By: Lucas Guzman on 11-18-2024 Albumin [Mass/Vol] 4.0 g/dL Normal 3.4-4.8 [facility] Comment on above: Order Comment: Order Date: 08/22/24Order Info: [id number] - CMPOrder Info: [id number] - LIPIDOrder Info: 6-3 - TSHOrder Info: [id number] - T4F Performed By: #### M 100.2200 #### [facility] [address] [place], [address] Serum or plasma albumin/glob ulin mass ratioOrdered By: Lucas Guzman on 11-18-2024 Albumin/Globulin [Mass ratio] 1.6 {ratio} Normal 0.9-2.4 [facility] Comment on above: Order Comment: Order Date: 08/22/24Order Info: [id number] - CMPOrder Info: [id number] - LIPIDOrder Info: [id number] - TSHOrder Info: [id number] T4F Performed By: #### M 100.2200 #### [facility] [address] [place], [address] Serum or plasma alkaline kei sphatase measurementOrdered By: Lucas Guzman on 11-18-2024 ALP [Catalytic activity/Vol] 62 U/L 35-104 [facility] Serum or plasma calcium parisa urement (mass/volume)Ordered By: Lucas Guzman on 11-18-2024 Calcium [Mass/Vol] 9.0 mg/dL Normal 7.6-11.0 [facility] Comment on above: Order Comment: Order Date: 08/22/24Order Info: [id number] - CMPOrder Info: [id number] - LIPIDOrder Info: 3 - TSHOrder Info: [id number] Performed By: #### M 100.2200 #### [facility] [address] [place], [place], [address] Serum or plasma cholesterol in HDL measurement (mass/volume)Ordered By: Lucas Guzman on 11-18-2024 Cholesterol in HDL [Mass/Vol] 58 mg/dL Normal [facility] Comment on above: National Cholesterol Education Program (NCEP) guidelines:<40 mg/dL: Low HDL-cholesterol (major risk factor for CHD)>= 60 mg/dL: High HDL-cholesterol (negative risk factor for CHD)HDL-cholesterol is affected by a number of factors, e.g. smoking, exercise, hormones, sex and age. Order Comment: Order Date: 08/22/24Order Info: [id number] - CMPOrder Info: [id number] - LIPIDOrder Info: 3 - TSHOrder Info: [id number] T4F Result Comment: [place] on[place] Cholesterol Education Program (NCEP) guidelines: <40 mg/dL: Low HDL-cholesterol (major risk factor for CHD) >= 60 mg/dL: High HDL-cholesterol (negative risk factor for CHD) HDL-cholesterol is affected by a number of factors, e.g. smoking, exercise, hormones, sex and age. Performed By: #### M 100.2200 #### [facility] [address] [place], [place], [address] Serum or plasma cholesterol measurement (mass/volume)Ordered By: Lucas Guzman on 11-18-2024 Cholesterol [Mass/Vol] 148 mg/dL Normal <=200 [facility] Comment on above: Cholesterol level, D esirable <200 mg/dLBorderline high cholesterol 200-239 mg/dLHigh cholesterol >=240 mg/dLRecommendations of the NCEP Adult Treatment Panel for the following risk-cutoff thresholds for the [place] population. Order Comment: Order Date: 08/22/24Order Info: [id number] - CMPOrder Info: [id number] - LIPIDOrder Info: [id number] - TSHOrder Info: [id number] - T4F Result Comment: Chol esterol level, Desirable <200 mg/dL Borderline high cholesterol 200-239 mg/dL High cholesterol >=240 mg/dL Recommendations of the NCEP Adult Treatment Panel for the following risk-cutoff thresholds for the [place] population. Performed By: #### M 100.2200 #### [facility] [address] [place], [place], [address] Serum or plasma urea nitroge n measurement (mass/volume)Ordered By: Lucas Guzman on 11-18-2024 Urea nitrogen [Mass/Vol] 9 mg/dL Normal 4-19 [facility] Comment on above: Order Comment: Order Date: 08/22/24Order Info: [id number] - CMPOrder Info: [id number] - LIPIDOrder Info: [id number] - TSHOrder Info: [id number] - T4F Performed By: #### M 100.2200 #### [facility] [address] [place], [place], [address] Sodium levelOrdered By: Lucas Guzman on 11-18-2024 Sodium [Moles/Vol] 140 mmol/L Normal 133-145 [facility] Comment on above: Order Comment: Order Date: 08/22/24Order Info: [id number] - CMPOrder Info: [id number] - LIPIDOrder Info: [id number] - TSHOrder Info: [id number] - T4F Performed By: #### M 100.2200 #### [facility] [address] [place], [address] Squamous epithelial cells de tection in urine sediment by light microscopyOrdered By: Lucas Guzman on 11-18-2024 Epithelial cells.squamous LM Ql (Urine sed) 0-5 SEEN /hpf 5-10 [facility] T4 Free Directon 11-18-2024 T4 FREE DIRECT 1.10 ng/dL Normal 0.76-1.46 [facility] Comment on above: Order Comment: Order Date: 08/22/24Order Info: [id number] - CMPOrder Info: [id number] - LIPIDOrder Info: [id number] - TSHOrder Info: [id number] - T4F Performed By: #### L 3300.6820, L3300.6900, L500.4050, L506.1000, L501.5200, L506.0400, L500.4100, L501.9985, L100.0100 #### [facility] [address] [place], [place], [address] T4 freeOrdered By: Lucas hawk on 11-18-2024 Free T4 [Mass/Vol] 1.10 ng/dL 0.76-1.46 [facility] TSH DL <= 0.005 mIU/L QnOrde red By: Lucas Guzman on 11-18-2024 TSH Qn 3.330 uIU/mL 0.300-4.200 [facility] Thyroid Stim Hormone (TSH)on 11-18-2024 TSH 3.330 uIU/mL Normal 0.300-4.200 [facility] Comment on above: Order Comment: Order Date: 08/22/24Order Info: [id number] - CMPOrder Info: [id number] - LIPIDOrder Info: [id number] - TSHOrder Info: [id number] - T4F Performed By: #### L 3300.6820, L3300.6900, L500.4050, L506.1000, L501.5200, L506.0400, L500.4100, L501.9985, L100.0100 #### [facility] [address] [place], [address] Total proteinOrdered By: Hira Guzman on 11-18-2024 Protein [Mass/Vol] 6.6 g/dL 5.9-8.4 [facility] Triglycerides measurementOrd ered By: Lucas Guzman on 11-18-2024 Triglyceride [Mass/Vol] 157 mg/dL Normal [facility] Comment on above: The drugs N-Acetylcy steine and Metamizole may falsely depress this assay. Normal range: <150 mg/dLBorderline High: 150-199 mg/dLHigh: 200-499 mg/dLVery High: >500 mg/dL Order Comment: Order Date: 08/22/24Order Info: [id number] - CMPOrder Info: [id number] - LIPIDOrder Info: [id number] - TSHOrder Info: [id number] - T4F Result Comment: The drugs N-Acetylcysteine and Metamizole may falsely depress this assay. Normal range: <150 mg/dL Borderline High: 150-199 mg/dL High: 200-499 mg/dL Very High: >500 mg/dL Performed By: #### M 100.2200 #### [facility] [address] [place], [address] Urinalysis, Completeon 11-18 EPI,SQUAMOUS 0-5 SEEN Normal 5-10 [facility] Comment on above: Order Comment: CLEAN CATCH Performed By: #### M 100.2200 #### [facility] [address] [place], [address] RBC 0-5 SEEN Normal 0-5 [facility] Comment on above: Order Comment: CLEAN CATCH Performed By: #### M 100.2200 #### [facility] [address] [place], [address] WBC 5-10 SEEN Normal 0-5 [facility] Comment on above: Order Comment: CLEAN CATCH Performed By: #### M 100.2200 #### [facility] [address] [place], [address] BACTERIA 0 SEEN Normal None Seen [facility] Comment on above: Order Comment: CLEAN CATCH Performed By: #### M 100.2200 #### [facility] [address] [place], [address] Mucus Ql (Urine sed) 0 SEEN Normal [facility] Comment on above: Order Comment: CLEAN CATCH Performed By: #### M 100.2200 #### [facility] [address] [place], [address] Urine clarityOrdered By: Hira Guzmna on 11-18-2024 Clarity (U) Clear Clear [facility] Urine color determinationOrd ered By: Lucas Guzman on 11-18-2024 Color (U) Yellow Yellow [facility] Urine glucose detectionOrder ed By: Lucas Guzman on 11-18-2024 Glucose Ql (U) Normal mg/dl Normal [facility] Urine leukocyte esterase det ection by dipstickOrdered By: Lucas Guzman on 11-18-2024 Leukocyte esterase Test strip Ql (U) 500 /ul High Negative [facility] Urine pHOrdered By: Lucas tay on 11-18-2024 pH (U) 6.0 [pH] 5.0 - 8.0 [facility] Urine protein measurement (m ass/volume)Ordered By: Lucas Guzman on 11-18-2024 Protein (U) [Mass/Vol] 13.8 mg/dL High 0.0-12.0 [facility] Urine protein/creatinine mas s ratioOrdered By: Lucas Guzman on 11-18-2024 Protein/Creatinine (U) [Mass ratio] 185 mg/g CRE 0-200 [facility] Urine sediment bacteria coun t by microscopy (number/high power field)Ordered By: Lucas Guzman on 11-18-2024 Bacteria LM.HPF (Urine sed) [#/Area] 0 /[HPF] None Seen [facility] Urine specific gravity measu rementOrdered By: Lucas Guzman on 11-18-2024 Specific gravity (U) [Rel density] 1.010 1.002-1.030 [facility] Urine urobilinogen measureme ntOrdered By: Lucas Guzman on 11-18-2024 Urobilinogen Ql (U) Normal mg/dl Normal [facility] [place] Vitamin D,25 Hydroxyon 11-18 Vitamin D 25-OH 28.8 ng/mL Low 30-100 [facility] Comment on above: Order Comment: Order Date: 08/22/24Order Info: [id number] - CMPOrder Info: [id number] - LIPIDOrder Info: [id number] - TSHOrder Info: [id number] - T4F Result Comment: Adriana min D Status Deficiency: <20 ng/mL (50nmol/L) Insufficiency: 20-30 ng/mL (50-75 nmol/L) Sufficiency: 30-100 ng/mL (75-250 nmol/L) Toxicity: >100 ng/mL (>250 nmol/L) Performed By: #### M 100.2200 #### [facility] [address] [place], [address] White blood cell countOrdere d By: Lucas Guzman on 11-18-2024 White blood cell count 5-10 SEEN /hpf 0-5 [facility] Abd Aortic/IVC Duplex scanon 10-22-2024 Abd Aortic/IVC Duplex scan [facility] [address] 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 in the cross-sectional axis. Proximal inferior vena cava measures 1.19 cm. in the longitudinal axis. Mid inferior vena cava measures 1.27 x 1.84 cm. in the cross- sectional axis. Mid inferior vena cava measures 1.22 cm. in the longitudinal axis. Distal inferior vena cava measures 1.20 x 1.62 cm. in the cross-sectional axis. Distal inferior vena cava measures 1.11 cm. in the longitudinal axis. The inferior vena cava has spontaneous, phasic flow throughout. Left Common Iliac Vein Left common iliac vein measures 0.94 x 0.91 cm. in the cross-sectional axis. Left common iliac vein measures 1.02 cm. in the longitudinal axis. The left common iliac vein has spontaneous, phasic flow throughout. Stent Noted. Flow noted with and without LLE Augmentation. Right Common Iliac Vein Right common iliac vein measures 0.88 x 1.12 cm. in the cross-sectional axis. Right common iliac vein measures 1.18 cm. in the longitudinal axis. The right common iliac vein has spontaneous, phasic flow throughout. 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 Left iliac vein stent patent with normal venous flow pattern. Ordering Physician: Maria R Bello Referring Physician: Lucas Guzman Performed By: Howie Greenberg, Amanda 10/22/241426 Date Delvis Galvan MD CC: ARYA Meredith; Dr. Lucas Guzman MD Date Dictated: 10/22/24913 Date Transcribed: 10/22/241426 Manager Endoscopy: Signed Normal [facility] Basic Metabolic Profile (BMP )on 07-31-2024 BUN/CRE 12.6 RATIO Normal 10-20 [facility] Comment on above: Performed By: #### M 100.2200 #### [facility] [address] [place], [place], [id number] CA,Total 8.7 mg/dL Normal 8.5-10.1 [facility] Comment on above: Performed By: #### M 100.2200 #### [facility] [address] [place], [address] EST GFR - AA 73 mL/min Normal >60 [facility] Comment on above: Result Comment: Afri can [place] GFR Calc Performed By: #### M 100.2200 #### [facility] [address] [place], [address] GAP 4 Low 5-15 [facility] Comment on above: Performed By: #### M 100.2200 #### [facility] [address] [place], [place], [address] Blood urea nitrogen (BUN)/cr eatinine ratioOrdered By: Lucas Guzman on 07-31-2024 Urea nitrogen/Creatinine [Mass ratio] 12.6 mg/mg 10-20 [facility] Carbon dioxide measurementOr dered By: Lucas Guzman on 07-31-2024 CO2 [Moles/Vol] 29.0 mmol/L Normal 21.0-32.0 [facility] Comment on above: Performed By: #### M 100.2200 #### [facility] [address] [place], [address] Chloride measurementOrdered By: Lucas Guzman on 07-31-2024 Chloride [Moles/Vol] 108 mmol/L High 98-107 [facility] Comment on above: Performed By: #### M 100.2200 #### [facility] [address] [place], [place], [id number] Glomerular filtration rate ( GFR) estimationOrdered By: Lucas Guzman on 07-31-2024 GFR/1.73 sq M.predicted among non-blacks MDRD (S/P/Bld) [Vol rate/Area] 60 mL/min/{1.73_m2} Normal >60 [facility] Comment on above: Non- GFR Calc Result Comment: Non- GFR Calc Performed By: #### M 100.2200 #### [facility] [address] [place], [address] Glucose measurementOrdered B y: Lucas Guzman on 07-31-2024 Glucose [Mass/Vol] 94 mg/dL Normal 74-106 [facility] Comment on above: Performed By: #### M 100.2200 #### [facility] [address] [place], [address] Potassium measurementOrdered By: Lucas Guzman on 07-31-2024 Potassium [Moles/Vol] 4.1 mmol/L Normal 3.5-5.1 [facility] [place] Comment on above: Performed By: #### M 100.2200 #### [facility] [address] [place], [address] Serum anion gap measurementO rdered By: Lucas Guzman on 07-31-2024 Anion gap [Moles/Vol] 4 mmol/L Low 5-15 [facility] [place] Serum or plasma calcium parisa urement (mass/volume)Ordered By: Lucas Guzman on 07-31-2024 Calcium [Mass/Vol] 8.7 mg/dL 8.5-10.1 [facility] Serum or plasma creatinine m easurement (mass/volume)Ordered By: Lucas Guzman on 07-31-2024 Creatinine [Mass/Vol] 0.95 mg/dL Normal 0.55-1.02 [facility] [place] Comment on above: The validity of the calculated GFR & GFRAA in patients over 70 years has not been determined. Clinical correlation is essential. Result Comment: The validity of the calculated GFR GFRAA in patients over 70 years has not been determined. Clinical correlation is essential. Performed By: #### M 100.2200 #### [facility] [address] [place], [address] Serum or plasma urea nitroge n measurement (mass/volume)Ordered By: Lucas Guzman on 07-31-2024 Urea nitrogen [Mass/Vol] 12 mg/dL Normal 7-18 [facility] Comment on above: Performed By: #### M 100.2200 #### [facility] [address] [place], [address] Sodium levelOrdered By: Lucas Guzman on 07-31-2024 Sodium [Moles/Vol] 141 mmol/L Normal 136-145 [facility] Comment on above: Performed By: #### M 100.2200 #### [facility] [address] [place], [address] Echo Completeon 07-28-2024 Echo Complete [facility] [address] [place] [address] Echo Complete 07/28/24 1107 MR#: [id number] Acct: [id number] Name: ADAN RYAN Rep #: [id number] : 1945 78 From: Fausto Hutton MD Attending Dr: Dr. Fausto Hutton MD Status: REG CLI Ordering Dr: Fausto Hutton MD Date: 07/28/24 Location: [facility] Sex: F C Admitted: Reason For Study: Other/Hypotension Procedure This was a 2D Doppler, Color Flow transthoracic echocardiogram. The study was technically difficult. Exam performed in department. Left Ventricle Normal size and thickness. The left ventricular ejection fraction is 60 %. Stage 1 diastolic dysfunction. Right Ventricle Mildly dilated right ventricle. Mild global right ventricular systolic dysfunction. Atria Normal left atrium. The right atrium is mildly enlarged. Mitral Valve Mild mitral annular calcification. Trivial mitral valve insufficiency. Tricuspid Valve Trivial tricuspid valve insufficiency. Right ventricular systolic pressure estimated to be 42 mmHg. Aortic Valve Trisinus/trileaflet aortic valve. Pulmonic Valve The pulmonic valve is not well visualized. Great Vessels The aortic root is not well visualized. Pericardium/Pleural No pericardial effusion. MMode/2D Measurements Calculations LVIDd: 3.5 cm IVSd: 0.89 cm LAV(MOD-bp): 48.1 ml LVIDs: 2.6 cm LVPWd: 0.84 cm LAV(MOD-bp) Indexed: 24.5 ml/m2 RVDd: 3.9 cm FS: 26.0 % LAV(MOD-sp2): 49.1 ml LAV(MOD-sp4): 47.1 ml ___ SV(MOD-sp4): 21.0 ml SV(sp4-el): 22.9 ml LVAd ap4: 17.3 cm2 LVLd ap4: 6.8 cm SI(MOD-sp4): 10.7 ml/m2 EDV(MOD-sp4): 37.0 ml EDV(sp4-el): 37.6 ml LVAs ap4: 10.5 cm2 LVLs ap4: 6.3 cm ESV(MOD-sp4): 16.0 ml ESV(sp4-el): 14.7 ml EF(MOD-sp4): 56.8 % EF(sp4-el): 61.0 % ___ LA A4 area: 17.1 cm2 LA dimension(2D): 3.1 cm RA A4 area: 16.7 cm2 ___ TAPSE: 2.1 cm Time Measurements MV dec time: 0.29 sec Doppler Measurements Calculations MV E max kendal: 48.8 cm/sec Lat Peak E' Kendal: 9.0 cm/sec Med Peak E' Kendal: 7.7 cm/sec MV A max kendal: 88.0 cm/sec E/E' lat: 5.4 E/E' med: 6.3 MV E/A: 0.55 ___ MV V2 max: 85.4 cm/sec MV P1/2t max kendal: 52.3 cm/sec Ao V2 max: 102.7 cm/sec MV max P.9 mmHg MV P1/2t: 106.4 msec Ao max P.2 mmHg MV V2 mean: 40.1 cm/sec Ao V2 mean: 72.3 cm/sec MV mean P.77 mmHg MV dec slope: 143.9 cm/sec2 Ao mean P.3 mmHg MV V2 VTI: 19.7 cm MVA(P1/2t): 2.1 cm2 Ao V2 VTI: 21.1 cm ___ LV V1 max: 83.9 cm/sec TR max kendal: 258.2 cm/sec LV V1 max P.8 mmHg TR max P.7 mmHg ECHO/Echo Complete Interpretation Summary The left ventricular ejection fraction is 60 %. Stage 1 diastolic dysfunction. Mildly dilated right ventricle. Mild global right ventricular systolic dysfunction. The right atrium is mildly enlarged. Right ventricular systolic pressure estimated to be 42 mmHg. Ordering Physician: Fausto Hutton Referring Physician: Fausto Hutton Performed By: Cortez Gonsalves RCS 07/28/24 1249 Date Fausto Hutton MD CC: Dr. Fausto Hutton MD; Dr. Lucas Guzman MD Date Dictated: 07/28/24 1107 Date Transcribed: 07/28/241248 Manager Endoscopy: Signed Normal [facility] Thyroglobulin w/Anti-TG ABon 07-28-2024 Anti-TG AB < 1.0 Normal 0.0-0.9 [facility] Comment on above: Result Comment: Thyr oglobulin Antibody measured by Partha Marrero Methodology It should be noted that the presence of thyroglobulin antibodies may not be pathogenic nor diagnostic, especially at very low levels. The assay edge kitter has found that four percent of individuals without evidence of thyroid disease or autoimmunity will have positive TgAb levels up to 4 IU/mL. Performed By: #### L 3300.6820, L3300.6900, L500.4050, L506.1000, L501.5200, L506.0400, L500.4100, L501.9985, L100.0100 #### [facility] [address] [place], [address] THYROGLOB QUANT 16.8 ng/mL Normal 1.5-38.5 [facility] Comment on above: Result Comment: Acco rding to the National Academy of Clinical Biochemistry, the reference interval for Thyroglobulin (TG) should be related to euthyroid patients and not for patients who underwent thyroidectomy. TG reference intervals for these patients depend on the residual mass of the thyroid tissue left after surgery. Establishing a post-operative baseline is recommended. The assay limit of quantitation is 0.1 ng/mL Thyroglobulin measured by Partha Marjorie Immunometric Assay Performed By: #### L 3300.6820, L3300.6900, L500.4050, L506.1000, L501.5200, L506.0400, L500.4100, L501.9985, L100.0100 #### [facility] [address] [place], [place], [id number] Thyroid Peroxidase ABon 02-0 THYR PEROX AB < 9 Normal 0-34 [facility] Comment on above: Result Comment: Perf ormed at: [facility] [address] [id number] Technical Sales Support Specialist: Marlon Swartz PhD, Phone: [phone] Performed By: #### M 489.4329 #### [facility] [address] [place], [place], [id number] Vitamin D,25 Hydroxyon 07-26 Vitamin D 25-OH 33.2 ng/mL Normal [facility] Comment on above: Result Comment: Adriana min D 25(OH) Status Range Deficiency <20 ng/mL (50nmol/L) Insufficiency 20 - 30 ng/mL (50 - 75 nmol/L) Sufficiency 30 - 100 ng/mL (75 - 250 nmol/L) Toxicity >100 ng/mL (>250 nmol/L) Performed By: #### L 3300.6820, L3300.6900, L500.4050, L506.1000, L501.5200, L506.0400, L500.4100, L501.9985, L100.0100 #### [facility] [address] [facility] [place], [address] CBC W/Diff, Automatedon 06-27 Absolute Lymph 1.46 X10 3/uL Normal 0.83-4.51 [facility] Comment on above: Performed By: #### L 3300.6820, L3300.6900, L500.4050, L506.1000, L501.5200, L506.0400, L500.4100, L501.9985, L100.0100 #### [facility] [address] [place], [address] Absolute Neut 5.0 X10 3/uL Normal 2.0-7.7 [facility] Comment on above: Performed By: #### L 3300.6820, L3300.6900, L500.4050, L506.1000, L501.5200, L506.0400, L500.4100, L501.9985, L100.0100 #### [facility] [address] [place], [address] Basophils/100 WBC (Bld) 1.0 % Normal 0-1 [facility] Comment on above: Performed By: #### L 3300.6820, L3300.6900, L500.4050, L506.1000, L501.5200, L506.0400, L500.4100, L501.9985, L100.0100 #### [facility] [address] [place], [address] Eosinophils/100 WBC (Bld) 1.3 % Normal 0-5 [facility] Comment on above: Performed By: #### L 3300.6820, L3300.6900, L500.4050, L506.1000, L501.5200, L506.0400, L500.4100, L501.9985, L100.0100 #### [facility] [address] [place], [address] Erythrocyte distribution width (RBC) [Ratio] 12.5 % Normal 11.6-14.6 [facility] Comment on above: Performed By: #### L 3300.6820, L3300.6900, L500.4050, L506.1000, L501.5200, L506.0400, L500.4100, L501.9985, L100.0100 #### [facility] [address] [place], [address] Hematocrit (Bld) [Volume fraction] 44.5 % Normal 37-47 [facility] Comment on above: Performed By: #### L 3300.6820, L3300.6900, L500.4050, L506.1000, L501.5200, L506.0400, L500.4100, L501.9985, L100.0100 #### [facility] [address] [place], [address] Hemoglobin (Bld) [Mass/Vol] 14.3 g/dL Normal 12.0-15.0 [facility] Comment on above: Performed By: #### L 3300.6820, L3300.6900, L500.4050, L506.1000, L501.5200, L506.0400, L500.4100, L501.9985, L100.0100 #### [facility] [address] [place], [address] IG% 0.300 Normal 0.0-0.9 [facility] Comment on above: Result Comment: IG% - Immature Granulocytes (promyelocytes, myelocytes and metamyelocytes) > 1% indicates that a LEFT SHIFT is Present. Performed By: #### L 3300.6820, L3300.6900, L500.4050, L506.1000, L501.5200, L506.0400, L500.4100, L501.9985, L100.0100 #### [facility] [address] [place], [address] Lymphocytes/100 WBC (Bld) 20.6 % Normal 19-41 [facility] Comment on above: Performed By: #### L 3300.6820, L3300.6900, L500.4050, L506.1000, L501.5200, L506.0400, L500.4100, L501.9985, L100.0100 #### [facility] [address] [place], [address] MCH (RBC) [Entitic mass] 30.6 pg Normal 27.0-32.0 [facility] Comment on above: Performed By: #### L 3300.6820, L3300.6900, L500.4050, L506.1000, L501.5200, L506.0400, L500.4100, L501.9985, L100.0100 #### [facility] [address] [place], [address] MCHC (RBC) [Mass/Vol] 32.1 g/dL Normal 32-36 [facility] Comment on above: Performed By: #### L 3300.6820, L3300.6900, L500.4050, L506.1000, L501.5200, L506.0400, L500.4100, L501.9985, L100.0100 #### [facility] [address] [place], [address] MCV (RBC) [Entitic vol] 95.1 fL Normal 81-99 [facility] Comment on above: Performed By: #### L 3300.6820, L3300.6900, L500.4050, L506.1000, L501.5200, L506.0400, L500.4100, L501.9985, L100.0100 #### [facility] [address] [place], [address] Monocytes/100 WBC (Bld) 6.2 % Normal 0-10 [facility] Comment on above: Performed By: #### L 3300.6820, L3300.6900, L500.4050, L506.1000, L501.5200, L506.0400, L500.4100, L501.9985, L100.0100 #### [facility] [address] [place], [address] Neutrophils/100 WBC (Bld) 70.6 % High 47-70 [facility] Comment on above: Performed By: #### L 3300.6820, L3300.6900, L500.4050, L506.1000, L501.5200, L506.0400, L500.4100, L501.9985, L100.0100 #### [facility] [address] [place], [address] Nucleated RBC (Bld) [#/Vol] 0 10*3/uL Normal 0-5 [facility] Comment on above: Performed By: #### L 3300.6820, L3300.6900, L500.4050, L506.1000, L501.5200, L506.0400, L500.4100, L501.9985, L100.0100 #### [facility] [address] [place], [address] Platelet mean volume (Bld) [Entitic vol] 11.2 fL Normal 6.2-12.0 [facility] Comment on above: Performed By: #### L 3300.6820, L3300.6900, L500.4050, L506.1000, L501.5200, L506.0400, L500.4100, L501.9985, L100.0100 #### [facility] [address] [place], [address] Platelets (Bld) [#/Vol] 246 10*3/uL Normal 150-450 [facility] Comment on above: Performed By: #### L 3300.6820, L3300.6900, L500.4050, L506.1000, L501.5200, L506.0400, L500.4100, L501.9985, L100.0100 #### [facility] [address] [place], [address] RBC (Bld) [#/Vol] 4.68 10*6/uL Normal 4.2-5.4 [facility] Comment on above: Performed By: #### L 3300.6820, L3300.6900, L500.4050, L506.1000, L501.5200, L506.0400, L500.4100, L501.9985, L100.0100 #### [facility] [address] [place], [address] RDW SD 43.5 fl Normal 35.1-43.9 [facility] Comment on above: Performed By: #### L 3300.6820, L3300.6900, L500.4050, L506.1000, L501.5200, L506.0400, L500.4100, L501.9985, L100.0100 #### [facility] [address] [place], [address] WBC (Bld) [#/Vol] 7.1 10*3/uL Normal 4.4-11.0 [facility] Comment on above: Performed By: #### L 3300.6820, L3300.6900, L500.4050, L506.1000, L501.5200, L506.0400, L500.4100, L501.9985, L100.0100 #### [facility] [address] [place], [address] Comprehensive Metabolic Prof [facility] 07-25-2024 Albumin [Mass/Vol] 3.9 g/dL Normal 3.2-5.0 [facility] Comment on above: Performed By: #### L 3300.6820, L3300.6900, L500.4050, L506.1000, L501.5200, L506.0400, L500.4100, L501.9985, L100.0100 #### [facility] [address] [place], [address] Albumin/Globulin [Mass ratio] 1.2 {ratio} Normal 0.9-2.4 [facility] Comment on above: Performed By: #### L 3300.6820, L3300.6900, L500.4050, L506.1000, L501.5200, L506.0400, L500.4100, L501.9985, L100.0100 #### [facility] [address] [place], [address] ALK P 76 U/L Normal 45-117 [facility] Comment on above: Performed By: #### L 3300.6820, L3300.6900, L500.4050, L506.1000, L501.5200, L506.0400, L500.4100, L501.9985, L100.0100 #### [facility] [address] [place], [address] ALT [Catalytic activity/Vol] 26 U/L Normal 13-56 [facility] Comment on above: Performed By: #### L 3300.6820, L3300.6900, L500.4050, L506.1000, L501.5200, L506.0400, L500.4100, L501.9985, L100.0100 #### [facility] [address] [place], [place], [id number] AST [Catalytic activity/Vol] 23 U/L Normal 15-37 [facility] Comment on above: Performed By: #### L 3300.6820, L3300.6900, L500.4050, L506.1000, L501.5200, L506.0400, L500.4100, L501.9985, L100.0100 #### [facility] [address] [place], [address] Bilirubin [Mass/Vol] 0.60 mg/dL Normal 0.20-1.00 [facility] Comment on above: Result Comment: For patients on eltrombopag therapy, use of Dimension [place] TBIL is not recommended. Performed By: #### L 3300.6820, L3300.6900, L500.4050, L506.1000, L501.5200, L506.0400, L500.4100, L501.9985, L100.0100 #### [facility] [address] [place], [address] BUN/CRE 10.0 RATIO Normal 10-20 [facility] Comment on above: Performed By: #### L 3300.6820, L3300.6900, L500.4050, L506.1000, L501.5200, L506.0400, L500.4100, L501.9985, L100.0100 #### [facility] [address] [place], [place], [id number] (989) CA,Total 9.5 mg/dL Normal 8.5-10.1 [facility] Comment on above: Performed By: #### L 3300.6820, L3300.6900, L500.4050, L506.1000, L501.5200, L506.0400, L500.4100, L501.9985, L100.0100 #### [facility] [address] [place], [address] Chloride [Moles/Vol] 107 mmol/L Normal 98-107 [facility] Comment on above: Performed By: #### L 3300.6820, L3300.6900, L500.4050, L506.1000, L501.5200, L506.0400, L500.4100, L501.9985, L100.0100 #### [facility] [address] [place], [address] CO2 [Moles/Vol] 23.0 mmol/L Normal 21.0-32.0 [facility] Comment on above: Performed By: #### L 3300.6820, L3300.6900, L500.4050, L506.1000, L501.5200, L506.0400, L500.4100, L501.9985, L100.0100 #### [facility] [address] [place], [place], [id number] Creatinine [Mass/Vol] 1.10 mg/dL High 0.55-1.02 [facility] Comment on above: Result Comment: The validity of the calculated GFR GFRAA in patients over 70 years has not been determined. Clinical correlation is essential. Performed By: #### L 3300.6820, L3300.6900, L500.4050, L506.1000, L501.5200, L506.0400, L500.4100, L501.9985, L100.0100 #### [facility] [address] [place], [address] EST GFR - AA 62 mL/min Normal >60 [facility] Comment on above: Result Comment: Afri can Mozambican GFR Calc Performed By: #### L 3300.6820, L3300.6900, L500.4050, L506.1000, L501.5200, L506.0400, L500.4100, L501.9985, L100.0100 #### [facility] [address] [place], [address] GAP 6 Normal 5-15 [facility] Comment on above: Performed By: #### L 3300.6820, L3300.6900, L500.4050, L506.1000, L501.5200, L506.0400, L500.4100, L501.9985, L100.0100 #### [facility] [address] [place], [address] GFR/1.73 sq M.predicted among non-blacks MDRD (S/P/Bld) [Vol rate/Area] 51 mL/min/{1.73_m2} Low >60 [facility] Comment on above: Result Comment: Non- GFR Calc Performed By: #### L 3300.6820, L3300.6900, L500.4050, L506.1000, L501.5200, L506.0400, L500.4100, L501.9985, L100.0100 #### [facility] [address] [place], [address] Globulin (S) [Mass/Vol] 3.3 g/dL Normal 2.2-4.2 [facility] Comment on above: Performed By: #### L 3300.6820, L3300.6900, L500.4050, L506.1000, L501.5200, L506.0400, L500.4100, L501.9985, L100.0100 #### [facility] [address] [place], [address] Glucose [Mass/Vol] 97 mg/dL Normal 74-106 [facility] Comment on above: Performed By: #### L 3300.6820, L3300.6900, L500.4050, L506.1000, L501.5200, L506.0400, L500.4100, L501.9985, L100.0100 #### [facility] [address] [place], [address] Potassium [Moles/Vol] 4.4 mmol/L Normal 3.5-5.1 [facility] Comment on above: Performed By: #### L 3300.6820, L3300.6900, L500.4050, L506.1000, L501.5200, L506.0400, L500.4100, L501.9985, L100.0100 #### [facility] [address] [place], [address] Sodium [Moles/Vol] 137 mmol/L Normal 136-145 [facility] Comment on above: Performed By: #### L 3300.6820, L3300.6900, L500.4050, L506.1000, L501.5200, L506.0400, L500.4100, L501.9985, L100.0100 #### [facility] [address] [place], [place], [id number] T PROT 7.2 g/dL Normal 6.4-8.2 [facility] Comment on above: Performed By: #### L 3300.6820, L3300.6900, L500.4050, L506.1000, L501.5200, L506.0400, L500.4100, L501.9985, L100.0100 #### [facility] [address] [facility] [place], [place], [id number] Urea nitrogen [Mass/Vol] 11 mg/dL Normal 7-18 [facility] Comment on above: Performed By: #### L 3300.6820, L3300.6900, L500.4050, L506.1000, L501.5200, L506.0400, L500.4100, L501.9985, L100.0100 #### [facility] [address] [place], [place], [id number] Hemoglobin A1con 07-25-2024 HbA1c (Bld) [Mass fraction] 5.3 % Normal 3.8-5.6 [facility] Comment on above: Result Comment: Norm al < 5.7 % Prediabetic 5.7 - 6.4 % Diabetic >or= 6.5 % Please note range changes. Performed By: #### L 3300.6820, L3300.6900, L500.4050, L506.1000, L501.5200, L506.0400, L500.4100, L501.9985, L100.0100 #### [facility] [address] [place], [place], [id number] Lipid Profileon 07-25-2024 Cholesterol [Mass/Vol] 155 mg/dL Normal 200 [facility] Comment on above: Result Comment: <200 mg/dL Desirable 200-240 mg/dL Borderline >240 mg/dL High Risk Performed By: #### L 3300.6820, L3300.6900, L500.4050, L506.1000, L501.5200, L506.0400, L500.4100, L501.9985, L100.0100 #### [facility] [address] [place], [address] Cholesterol in HDL [Mass/Vol] 73 mg/dL Normal [facility] Comment on above: Result Comment: The drugs N-Acetylcysteine and Metamizole may falsely depress this assay. Reference Range HDL <40 mg/dL Low HDL Cholesterol HDL >or= 60 mg/dL High HDL Cholesterol Performed By: #### L 3300.6820, L3300.6900, L500.4050, L506.1000, L501.5200, L506.0400, L500.4100, L501.9985, L100.0100 #### [facility] [address] [facility] [place], [address] Cholesterol in LDL [Mass/Vol] 59 mg/dL Normal 0-130 [facility] Comment on above: Performed By: #### L 3300.6820, L3300.6900, L500.4050, L506.1000, L501.5200, L506.0400, L500.4100, L501.9985, L100.0100 #### [facility] [address] [place], [address] Cholesterol in VLDL [Mass/Vol] 23 mg/dL Normal 5-40 [facility] Comment on above: Performed By: #### L 3300.6820, L3300.6900, L500.4050, L506.1000, L501.5200, L506.0400, L500.4100, L501.9985, L100.0100 #### [facility] [address] [place], [address] Triglyceride [Mass/Vol] 117 mg/dL Normal [facility] Comment on above: Result Comment: The drugs N-Acetylcysteine and Metamizole may falsely depress this assay. Serum Triglycerides Reference Interval Normal <150 mg/dL Borderline high 150 - 199 mg/dL High 200 - 499 mg/dL Very High > or = 500 mg/dL Performed By: #### L 3300.6820, L3300.6900, L500.4050, L506.1000, L501.5200, L506.0400, L500.4100, L501.9985, L100.0100 #### [facility] [address] [place], [place], [id number] Magnesiumon 07-25-2024 Magnesium [Mass/Vol] 2.2 mg/dL Normal 1.6-2.6 [facility] Comment on above: Performed By: #### L 3300.6820, L3300.6900, L500.4050, L506.1000, L501.5200, L506.0400, L500.4100, L501.9985, L100.0100 #### [facility] [address] [place], [place], [id number] T4 Free Directon 07-25-2024 T4 FREE DIRECT 1.03 ng/dL Normal 0.76-1.46 [facility] Comment on above: Performed By: #### L 3300.6820, L3300.6900, L500.4050, L506.1000, L501.5200, L506.0400, L500.4100, L501.9985, L100.0100 #### [facility] [address] [place], [place], [id number] Urine Cultureon 07-24-2024 URC Escherichia coli [place] Count >100,000 Escherichia coli: REACTION Ampicillin Islt LUIS >=32 Ampicillin+Sulbac Islt LUIS 8 S Cefepime Islt LUIS <=0.12 S cefTRIAXone Islt LUIS <=0.25 S Ciprofloxacin Islt LUIS <=0.06 S B-Lactamase Extended Susc Islt NEG Gentamicin Islt LUIS <=1 S levoFLOXacin Islt LUIS <=0.12 S Meropenem Islt LUIS <=0.25 S Nitrofurantoin Islt LUIS <=16 S Pip+Tazo Islt LUIS <=4 S TMP SMX Islt LUIS >=320 R Normal [facility] Comment on above: Performed By: #### M 100.2200 #### [facility] [address] [place], [place], [address] MR/BMS.BVSon 07-22-2024 MR/BMS.BVS [facility] [address] [place] [address] OFFICE VISIT Date of Service: 07/22/24 MR#: [id number] Acct: [id number] Name: ADAN RYAN Rep #: [id number] : 1945 Provider: ARYA Meredith Age/Sex: 78/F Location: [facility] Status: Signed Intake Vital Signs 04/16/24 09:01 07/16/24 08:32 07/22/24 10:41 Height 5 ft 9 in 5 ft 9 in Weight: 180 lb BP 138/80 H Blood Pressure Location Lt brachial Position Sitting Respiration 16 Pulse 92 Pulse Source Monitor Temp 98.7 F Temp Source Temporal Pulse Oximetry (%) 97 Oxygen Delivery Method room air Intake Visit Reasons: 3-6 M FU Is patient in pain?: No Allergies No Known Allergies Allergy (Verified 07/22/24 10:42) Medications ???Medication ???Instructions ???Recorded ???Confirmed ???Type alendronate 10 mg tablet 10 mg PO DAILY 10/27/20 07/22/24 History apixaban 2.5 mg tablet (Eliquis) 2.5 mg PO BID 10/27/20 07/22/24 History rosuvastatin 5 mg tablet (Crestor) 5 mg PO QHS 10/27/20 07/22/24 History ascorbic acid (vitamin C) 500 mg 500 mg PO DAILY 08/19/22 07/22/24 History capsule calcium carbonate (Calcium 600) 600 mg PO DAILY 08/19/22 07/22/24 History cholecalciferol (vitamin D3) 50 50 mcg PO DAILY 08/19/22 07/22/24 History mcg (2,000 unit) tablet multivitamin with minerals 1 cap PO DAILY 08/19/22 07/22/24 History comp.stocking,knee,long,me dium #12 ea 07/16/24 07/22/24 Rx Is last menstrual period known: No Post menopausal: Yes Patient : No Have you fallen in the past year?: No PFSH Medical History Post-menopausal History of Holter monitoring Non-smoker History of edema History of irregular heartbeat History of echocardiogram History of stress test Cardiology follow-up encounter Vitamin D deficiency Palpitations DVT (deep venous thrombosis) Hyperlipidemia Patient travels Wears glasses Alcohol use Easy bruising High cholesterol Screening for intestinal cancer Hx of blood clots Fatigue Pulmonary emboli Osteoporosis Surgical History Hx of tonsillectomy Hx of wisdom tooth extraction Hx of dilation and curettage History of total left hip replacement Hx of colonoscopy Family History Father Leukemia Mother Skin cancer of trunk Heart disease Social History Smoking Status: Never smoker second hand exposure: No alcohol intake: current alcohol intake frequency: a few times a month Alcohol type: wine substance use type: does not use caffeine: Yes Type: coffee Number of servings: 2 what type of physical activity do you participate in: none and walking frequency: 1-2 times per week HPI HPI HPI: ADAN RYAN, is a 78 F who presents to the office today for follow-up s/p L iliac vein stenting 04/16/24. She reports that she has not noticed aching in her varicosities since the procedure; with the exception of some aching in the general area of a varicosity around her R knee which occurs only at night and typically is relieved by placing a pillow under her knee with sleeping. She does continue to notice BLE edema, though generally well-managed with compression stockings. The swelling did get much worse when she was in [facility] again late last year, but notably the weather was very warm and she was not wearing compression at this time; no associated pain/redness at that time. The swelling has returned to her baseline since returning home. Otherwise, no new/worsening symptoms. She is chronically anticoagulated with Eliquis. She did also complain of urinary urgency, frequency, and incontinence which has been going on for a couple days. She has had recurrent UTIs, but typically her symptom is burning with urination which she is not really noticing right now. She is otherwise feeling fine. She does see her PCP later this week. ROS General General: Yes fatigue; No weight change, appetite, colon cancer, breast cancer or weakness HEENT HEENT: Yes swollen glands and hoarseness; No difficulty swallowing, eye injury or eye surgery Endo Endocrine: Yes Hair loss; No thyroid disease, diabetes mellitus, thyroid cancer, heat intolerance or cold intolerance Skin Skin: No rash or changing moles Musc Musculoskeletal: Yes back problems; No arthritis, rheumatoid arthritis, gout or joint pain Cardio Cardiovascular: Yes palpitations; No murmur, pacemaker, heart disease, atrial fibrillation, high blood pressure, heart attack, heart stent, shortness of breat with exertion or chest pain Psych Psychiatric: No depression, anxiety or hearing voices Resp (more content not included)... Normal [facility] CBC-Complete Blood Cnt No Di ffon 07-16-2024 Erythrocyte distribution width (RBC) [Ratio] 12.2 % Normal 11.6-14.6 [facility] Comment on above: Performed By: #### M 100.2200 #### [facility] [address] [place], [address] Hematocrit (Bld) [Volume fraction] 49.5 % High 37-47 [facility] Comment on above: Performed By: #### M 100.2200 #### [facility] [address] [place], [address] Hemoglobin (Bld) [Mass/Vol] 15.7 g/dL High 12.0-15.0 [facility] Comment on above: Performed By: #### M 100.2200 #### [facility] [address] [place], [address] MCH (RBC) [Entitic mass] 30.2 pg Normal 27.0-32.0 [facility] Comment on above: Performed By: #### M 100.2200 #### [facility] [address] [place], [address] MCHC (RBC) [Mass/Vol] 31.7 g/dL Low 32-36 [facility] Comment on above: Performed By: #### M 100.2200 #### [facility] [address] [place], [address] MCV (RBC) [Entitic vol] 95.2 fL Normal 81-99 [facility] Comment on above: Performed By: #### M 100.2200 #### [facility] [address] [place], [address] Platelet mean volume (Bld) [Entitic vol] 10.8 fL Normal 6.2-12.0 [facility] Comment on above: Performed By: #### M 100.2200 #### [facility] [address] [place], [address] Platelets (Bld) [#/Vol] 281 10*3/uL Normal 150-450 [facility] Comment on above: Performed By: #### M 100.2200 #### [facility] [address] [place], [address] RBC (Bld) [#/Vol] 5.20 10*6/uL Normal 4.2-5.4 [facility] Comment on above: Performed By: #### M 100.2200 #### [facility] [address] [place], [address] RDW SD 42.5 fl Normal 35.1-43.9 [facility] Comment on above: Performed By: #### M 100.2200 #### [facility] [address] [place], [address] WBC (Bld) [#/Vol] 9.3 10*3/uL Normal 4.4-11.0 [facility] Comment on above: Performed By: #### M 100.2200 #### [facility] [address] [place], [address] Cardiology Visit Reporton Cardiology Visit Report [facility] [address] [place] [address] OFFICE VISIT Date of Service: 07/16/24 MR#: [id number] Acct: [id number] Name: ADAN YRAN Rep #: [id number] : 1945 Provider: Dr. Fausto Hutton MD Age/Sex: 78/F [place] [facility] [place] Status: Signed HPI HPI History of Present Illness Details: This lady with history of pulmonary embolism, lower extremity venous insufficiency and dyslipidemia is here for follow-up visit. Denies any chest pains. No shortness of breath. Patient complains of becoming lightheaded with prolonged standing. No syncope or presyncope. Denies orthopnea or PND. He does have occasional lower extremity edema. Intake Vital Signs 04/16/24 09:01 07/16/24 08:32 Height 5 ft 9 in 5 ft 9 in Weight: 174 lb 177 lb BMI 26.1 BP 127/80 H Blood Pressure Location Lt brachial Position Sitting Respiration 18 Pulse 99 Pulse Source NIBP Intake Visit Reasons: OVERDUE FOR OV/LAST SEEN 11/2022 [employer] Required: No Accompanied by: Self Is patient in pain?: No Allergies No Known Allergies Allergy (Verified 07/16/24 14:17) Medications ???Medication ???Instructions ???Recorded ???Confirmed ???Type alendronate 10 mg tablet 10 mg PO DAILY 10/27/20 07/16/24 History apixaban 2.5 mg tablet (Eliquis) 2.5 mg PO BID 10/27/20 07/16/24 History rosuvastatin 5 mg tablet (Crestor) 5 mg PO QHS 10/27/20 07/16/24 History ascorbic acid (vitamin C) 500 mg 500 mg PO DAILY 08/19/22 07/16/24 History capsule calcium carbonate (Calcium 600) 600 mg PO DAILY 08/19/22 07/16/24 History cholecalciferol (vitamin D3) 50 50 mcg PO DAILY 08/19/22 07/16/24 History mcg (2,000 unit) tablet multivitamin with minerals 1 cap PO DAILY 08/19/22 07/16/24 History comp.stocking,knee,long,me dium #12 ea 07/16/24 07/16/24 Rx Ejection fraction %: 65 Have you fallen in the past year?: No PFSH Medical History Alcohol use Cardiology follow-up encounter DVT (deep venous thrombosis) Easy bruising Fatigue High cholesterol History of echocardiogram History of edema History of Holter monitoring History of irregular heartbeat History of stress test Hx of blood clots Hyperlipidemia Non-smoker Osteoporosis Palpitations Patient travels Post-menopausal Pulmonary emboli Screening for intestinal cancer Vitamin D deficiency Wears glasses Surgical History History of total left hip replacement Hx of colonoscopy Hx of dilation and curettage Hx of tonsillectomy Hx of wisdom tooth extraction Family History Father Leukemia Mother Skin cancer of trunk Heart disease Social History Smoking Status: Never smoker second hand exposure: No alcohol intake: current alcohol intake frequency: a few times a month Alcohol type: wine substance use type: does not use caffeine: Yes Type: coffee Number of servings: 2 what type of physical activity do you participate in: none and walking frequency: 1-2 times per week ROS Const Const: Negative for fatigue, weakness, headache(s) or weight gain ENT ENT: Negative for headache(s), dizziness, Nosebleed/epistaxis or balance problems Cardio Chest Pain: No Palpitations: Yes (occasional at rest) Edema: Bilateral (moderate-severe; temperature dependent) Muscle aches with walking: None Resp Respiratory: Negative for SOB with activity, SOB at rest or SOB orthopnea SOB lying down GI GI: Negative nausea, vomiting or heartburn Musc Musc: Negative for muscle aches/ myalgia, muscle weakness, joint pain or balance problems Neuro Neuro: Positive for lightheadedness (with prolonged standing); Negative for dizziness, near syncope, syncope, headache(s) or weakness Endo Endo: Negative for fatigue Cardiology Exam Const Appearance: comfortable and no acute distress Nutritional Appearance: well nourished Neck Neck: no JVD Carotids: Negative bruit Chest Auscultation: Bilateral: Clear to Auscultation Cardio Rate: regular rate Rhythm: regular rhythm Heart sounds: S1 normal and S2 normal Neuro General: patient alert, patient awake and patient oriented x3 Extremities Lower Extremity Edema: None: Bilateral Supplemental Info Supplemental Information ECHOCARDIOGRAM 09/28/20: Interpretation Summary The study was technically difficult. ??? Left ventricular systolic function is normal. The estimated ejection fraction is 65 %. There is mild mitral annular calcification. Trivial mitral valve insufficiency. Moderate (2+) tricuspid valve insufficiency. Mild diffuse aortic valve thickening. Right ventr (more content not included)... Normal [facility] Comprehensive Metabolic Prof ilon 07-16-2024 Albumin [Mass/Vol] 4.1 g/dL Normal 3.2-5.0 [facility] Comment on above: Performed By: #### M 100.2200 #### [facility] [address] [place], [address] Albumin/Globulin [Mass ratio] 1.0 {ratio} Normal 0.9-2.4 [facility] Comment on above: Performed By: #### M 100.2200 #### [facility] [address] [place], [address] ALK P 85 U/L Normal 45-117 [facility] Comment on above: Performed By: #### M 100.2200 #### [facility] [address] [place], [address] ALT [Catalytic activity/Vol] 28 U/L Normal 13-56 [facility] Comment on above: Performed By: #### M 100.2200 #### [facility] [address] [place], [address] AST [Catalytic activity/Vol] 22 U/L Normal 15-37 [facility] Comment on above: Performed By: #### M 100.2200 #### [facility] [address] [place], [address] Bilirubin [Mass/Vol] 0.60 mg/dL Normal 0.20-1.00 [facility] Comment on above: Result Comment: For patients on eltrombopag therapy, use of Dimension Kershaw TBIL is not recommended. Performed By: #### M 100.2200 #### [facility] [address] [place], [address] BUN/CRE 17.3 RATIO Normal 10-20 [facility] Comment on above: Performed By: #### M 100.2200 #### [facility] [address] [place], [address] CA,Total 9.7 mg/dL Normal 8.5-10.1 [facility] Comment on above: Performed By: #### M 100.2200 #### [facility] [address] [place], [address] Chloride [Moles/Vol] 104 mmol/L Normal 98-107 [facility] Comment on above: Performed By: #### M 100.2200 #### [facility] [address] [place], [address] CO2 [Moles/Vol] 26.0 mmol/L Normal 21.0-32.0 [facility] Comment on above: Performed By: #### M 100.2200 #### [facility] [address] [place], [address] Creatinine [Mass/Vol] 0.98 mg/dL Normal 0.55-1.02 [facility] Comment on above: Result Comment: The validity of the calculated GFR GFRAA in patients over 70 years has not been determined. Clinical correlation is essential. Performed By: #### M 100.2200 #### [facility] [address] [place], [address] EST GFR - AA 70 mL/min Normal >60 [facility] Comment on above: Result Comment: Afri can [place] GFR Calc Performed By: #### M 100.2200 #### [facility] [address] [place], [address] GAP 9 Normal 5-15 [facility] Comment on above: Performed By: #### M 100.2200 #### [facility] [address] [place], [address] GFR/1.73 sq M.predicted among non-blacks MDRD (S/P/Bld) [Vol rate/Area] 58 mL/min/{1.73_m2} Low >60 [facility] Comment on above: Result Comment: Non- GFR Calc Performed By: #### M 100.2200 #### [facility] [address] [place], [address] Globulin (S) [Mass/Vol] 4.0 g/dL Normal 2.2-4.2 [facility] Comment on above: Performed By: #### M 100.2200 #### [facility] [address] [place], [address] Glucose [Mass/Vol] 137 mg/dL High 74-106 [facility] Comment on above: Result Comment: Fast ing Glucose result greater than or equal to 126 mg/dL suggests DIABETES MELLITUS per A.D.A. criteria. Performed By: #### M 100.2200 #### [facility] [address] [place], [address] Potassium [Moles/Vol] 4.2 mmol/L Normal 3.5-5.1 [facility] Comment on above: Performed By: #### M 100.2200 #### [facility] [address] [place], [address] Sodium [Moles/Vol] 139 mmol/L Normal 136-145 [facility] Comment on above: Performed By: #### M 100.2200 #### [facility] [address] [place], [address] T PROT 8.1 g/dL Normal 6.4-8.2 [facility] Comment on above: Performed By: #### M 100.2200 #### [facility] [address] [place], [place], [id number] Urea nitrogen [Mass/Vol] 17 mg/dL Normal 7-18 [facility] Comment on above: Performed By: #### M 100.2200 #### [facility] [address] [place], [address] Thyroid Stim Hormone (TSH)on 07-16-2024 TSH 4.490 uIU/mL High 0.358-3.740 [facility] Comment on above: Performed By: #### M 100.2200 #### [facility] [address] [place], [address] Absolute lymphocyte countOrd ered By: Lucas Guzman on 05-14-2023 Lymphocytes Auto (Unsp spec) [#/Vol] 1.53 10*3/uL 0.83-4.51 [facility] Basophil percentageOrdered B y: Lucas Guzman on 05-14-2023 Basophils/100 WBC (Bld) 0.6 % 0-1 [facility] Bilirubin [Mass/Vol] 0.50 mg/dL 0.20-1.00 [facility] Comment on above: For patients on eltr ombopag therapy, use of Dimension [place]haw TBIL is not recommended. Chloride [Moles/Vol] 108 mmol/L 98-107 [facility] Cholesterol [Mass/Vol] 154 mg/dL <200 [facility] Comment on above: <200 mg/dL Desirable 200-240 mg/dL Borderline >240 mg/dL High Risk Eosinophils/100 WBC (Bld) 2.3 % 0-5 [facility] Glucose [Mass/Vol] 75 mg/dL 74-106 [facility] Neutrophils (Bld) [#/Vol] 4.1 10*3/uL 2.0-7.7 [facility] Neutrophils/100 WBC (Bld) 65.7 % 47-70 [facility] Potassium [Moles/Vol] 3.7 mmol/L 3.5-5.1 [facility] Protein [Mass/Vol] 6.7 g/dL 6.4-8.2 [facility] Sodium [Moles/Vol] 142 mmol/L 136-145 [facility] Triglyceride [Mass/Vol] 83 mg/dL <199 [facility] Comment on above: The drugs N-Acetylcy steine and Metamizole may falsely depress this assay.Serum Triglycerides Reference Interval Normal <150 mg/dL Borderline high 150 - 199 mg/dL High 200 - 499 mg/dL Very High > or = 500 mg/dL WBC (Bld) [#/Vol] 6.2 10*3/uL 4.4-11.0 [facility] Blood erythrocytes count (nu mber/volume)Ordered By: Lucas Guzman on 05-14-2023 RBC (Bld) [#/Vol] 4.26 10*6/uL 4.2-5.4 [facility] Blood hemoglobin measurement (mass/volume)Ordered By: Lucas Guzman on 05-14-2023 Hemoglobin (Bld) [Mass/Vol] 13.4 g/dL 12.0-15.0 [facility] Blood lymphocytes/100 leukoc ytesOrdered By: Lucas Guzman on 05-14-2023 Lymphocytes/100 WBC (Bld) 24.8 % 19-41 [facility] Blood monocytes/100 leukocyt esOrdered By: Lucas Guzman on 05-14-2023 Monocytes/100 WBC (Bld) 6.3 % 0-10 [facility] Blood platelet mean volumeOr dered By: Lucas Guzman on 05-14-2023 Platelet mean volume (Bld) [Entitic vol] 11.1 fL 6.2-12.0 [facility] Determination of erythrocyte mean corpuscular volume (MCV)Ordered By: Lucas Guzman on 05-14-2023 MCV (RBC) [Entitic vol] 99.5 fL 81-99 [facility] Hematocrit Auto (Bld) [Volum e fraction]Ordered By: Lucas Guzman on 05-14-2023 Hematocrit (Bld) [Volume fraction] 42.4 % 37-47 [facility] Laboratory - Chemistry and C hemistry - challengeOrdered By: Lucas Guzman on 05-14-2023 ALP [Catalytic activity/Vol] 60 U/L 45-117 [facility] ALT [Catalytic activity/Vol] 22 U/L 13-56 [facility] CO2 [Moles/Vol] 27.0 mmol/L 21.0-32.0 [facility] Free T4 [Mass/Vol] 1.01 ng/dL 0.76-1.46 [facility] Globulin (S) [Mass/Vol] 3.2 g/dL 2.2-4.2 [facility] Urea nitrogen/Creatinine [Mass ratio] 16.2 mg/mg 10-20 [facility] Laboratory - Hematology and Cell countsOrdered By: Lucas Guzman on 05-14-2023 Erythrocyte distribution width (RBC) [Entitic vol] 47.8 fL 35.1-43.9 [facility] Erythrocyte distribution width (RBC) [Ratio] 12.9 % 11.6-14.6 [facility] Immature granulocytes/100 WBC (Bld) 0.300 % 0.0-0.9 [facility] Comment on above: IG% - Immature Granu locytes (promyelocytes, myelocytes and metamyelocytes) > 1% indicates that a LEFT SHIFT is Present. MCH (RBC) [Entitic mass] 31.5 pg 27.0-32.0 [facility] Nucleated RBC/100 WBC (Bld) [Ratio] 0 % 0-5 [facility] MCHC Auto (RBC) [Mass/Vol]Or dered By: Lucas Guzman on 05-14-2023 MCHC (RBC) [Mass/Vol] 31.6 g/dL 32-36 [facility] No Panel InformationOrdered By: Lucas Guzman on 05-14-2023 Estimated GFR (MDRD) Amer 89 mL/min >60 [facility] Comment on above: GFR Calc Estimated GFR (MDRD) Non-Af Amer 73 mL/min >60 [facility] Comment on above: Non- GFR Calc Thyroid Stimulating Hormone (TSH) 2.60 uIU/mL 0.358-3.74 [facility] Vitamin D 25-Hydroxy 40.6 ng/mL [facility] Comment on above: Vitamin D 25(OH) Sta tus Range Deficiency <20 ng/mL (50nmol/L) Insufficiency 20 - 30 ng/mL (50 - 75 nmol/L) Sufficiency 30 - 100 ng/mL (75 - 250 nmol/L) Toxicity >100 ng/mL (>250 nmol/L) Platelets bldOrdered By: Hira Guzman on 05-14-2023 Platelets (Bld) [#/Vol] 199 10*3/uL 150-450 [facility] Serum or plasma albumin parisa urement (mass/volume)Ordered By: Lucas Guzman on 05-14-2023 Albumin [Mass/Vol] 3.5 g/dL 3.2-5.0 [facility] Serum or plasma albumin/glob ulin mass ratioOrdered By: Lucas Guzman on 05-14-2023 Albumin/Globulin [Mass ratio] 1.1 {ratio} 0.9-2.4 [facility] Serum or plasma calcium parisa urement (mass/volume)Ordered By: Lucas Guzman on 05-14-2023 Calcium [Mass/Vol] 8.4 mg/dL 8.5-10.1 [facility] Serum or plasma cholesterol in HDL measurement (mass/volume)Ordered By: Lucas Guzman on 05-14-2023 Cholesterol in HDL [Mass/Vol] 63 mg/dL >40 [facility] Comment on above: The drugs N-Acetylcy steine and Metamizole may falsely depress this assay. Reference Range HDL <40 mg/dL Low HDL Cholesterol HDL >or= 60 mg/dL High HDL Cholesterol Serum or plasma cholesterol in VLDL measurement (mass/volume)Ordered By: Lucas Guzman on 05-14-2023 Cholesterol in VLDL [Mass/Vol] 17 mg/dL 5-40 [facility] Serum or plasma creatinine m easurement (mass/volume)Ordered By: Lucas Guzman on 05-14-2023 Creatinine [Mass/Vol] 0.80 mg/dL 0.55-1.02 [facility] Comment on above: The validity of the calculated GFR & GFRAA in patients over 70 years has not been determined. Clinical correlation is essential. Serum or plasma low density lipoprotein (LDL) cholesterol measurement (mass/volume)Ordered By: Lucas Guzman on 05-14-2023 Cholesterol in LDL [Mass/Vol] 74 mg/dL 0-130 [facility] Serum or plasma urea nitroge n measurement (mass/volume)Ordered By: Lucas Guzman on 05-14-2023 Urea nitrogen [Mass/Vol] 13 mg/dL 7-18 [facility] Thin prep Papanicolaou smear with manual screeningOrdered By: Lucas Guzman on 05-14-2023 Thin prep Papanicolaou smear with manual screening 20 U/L 15-37 [facility] Thin prep Papanicolaou smear with manual screening 7 5-15 [facility] Ova and parasitesOrdered By: Verito Jimenez on 11-22-2022 Ova and parasites identified LM Nom (Unsp spec) [facility] No Panel InformationOrdered By: Verito Jimenez on 11-15-2022 Miscellaneous Test See comment [facility] Comment on above: TEST RESULTS LIMITSS almonella/Shigella Screen Final ReportResult No Salmonella or Shigella recoveredCampylobacter Culture Final ReportResult No Campylobactoer species isolatedE coli Shiga Toxin EIA Negative Negative TESTING PERFORMED AT [facility]. ORIGINAL REPORT ON FILE IN LAB CONTAINS ADDITIONAL TEST SITE INFORMATION. Ova and parasitesOrdered By: Verito Jimenez on 11-15-2022 Ova and parasites identified LM Nom (Unsp spec) [facility] Absolute lymphocyte countOrd ered By: Verito Jimenez on 11-13-2022 Lymphocytes Auto (Unsp spec) [#/Vol] 1.64 10*3/uL 0.83-4.51 [facility] Basophil percentageOrdered B y: Verito Jimenez on 11-13-2022 Basophils/100 WBC (Bld) 0.9 % 0-1 [facility] Bilirubin [Mass/Vol] 0.70 mg/dL 0.20-1.00 [facility] Comment on above: For patients on eltr ombopag therapy, use of Dimension Kershaw TBIL is not recommended. Chloride [Moles/Vol] 109 mmol/L 98-107 [facility] Eosinophils/100 WBC (Bld) 1.2 % 0-5 [facility] Glucose [Mass/Vol] 87 mg/dL 74-106 [facility] Neutrophils (Bld) [#/Vol] 4.7 10*3/uL 2.0-7.7 [facility] Neutrophils/100 WBC (Bld) 68.3 % 47-70 [facility] Potassium [Moles/Vol] 4.1 mmol/L 3.5-5.1 [facility] Protein [Mass/Vol] 6.9 g/dL 6.4-8.2 [facility] Sodium [Moles/Vol] 141 mmol/L 136-145 [facility] WBC (Bld) [#/Vol] 6.9 10*3/uL 4.4-11.0 [facility] Blood erythrocytes count (nu mber/volume)Ordered By: Verito Jimenez on 11-13-2022 RBC (Bld) [#/Vol] 4.52 10*6/uL 4.2-5.4 [facility] Blood hemoglobin measurement (mass/volume)Ordered By: Verito Jimenez on 11-13-2022 Hemoglobin (Bld) [Mass/Vol] 13.9 g/dL 12.0-15.0 [facility] Blood lymphocytes/100 leukoc ytesOrdered By: Verito Jimenez on 11-13-2022 Lymphocytes/100 WBC (Bld) 23.7 % 19-41 [facility] Blood monocytes/100 leukocyt esOrdered By: Verito Jimenez on 11-13-2022 Monocytes/100 WBC (Bld) 5.6 % 0-10 [facility] Blood platelet mean volumeOr dered By: Verito Jimenez on 11-13-2022 Platelet mean volume (Bld) [Entitic vol] 11.5 fL 6.2-12.0 [facility] Determination of erythrocyte mean corpuscular volume (MCV)Ordered By: Verito Jimenez on 11-13-2022 MCV (RBC) [Entitic vol] 98.2 fL 81-99 [facility] Hematocrit Auto (Bld) [Volum e fraction]Ordered By: Verito Jimenez on 11-13-2022 Hematocrit (Bld) [Volume fraction] 44.4 % 37-47 [facility] Laboratory - Chemistry and C hemistry - challengeOrdered By: Verito Jimenez on 11-13-2022 ALP [Catalytic activity/Vol] 52 U/L 45-117 [facility] ALT [Catalytic activity/Vol] 25 U/L 13-56 [facility] CO2 [Moles/Vol] 26.0 mmol/L 21.0-32.0 [facility] Globulin (S) [Mass/Vol] 3.3 g/dL 2.2-4.2 [facility] Urea nitrogen/Creatinine [Mass ratio] 13.3 mg/mg 10-20 [facility] Laboratory - Hematology and Cell countsOrdered By: Verito Jimenez on 11-13-2022 Erythrocyte distribution width (RBC) [Entitic vol] 45.2 fL 35.1-43.9 [facility] Erythrocyte distribution width (RBC) [Ratio] 12.6 % 11.6-14.6 [facility] Immature granulocytes/100 WBC (Bld) 0.300 % 0.0-0.9 [facility] Comment on above: IG% - Immature Granu locytes (promyelocytes, myelocytes and metamyelocytes) > 1% indicates that a LEFT SHIFT is Present. MCH (RBC) [Entitic mass] 30.8 pg 27.0-32.0 [facility] Nucleated RBC/100 WBC (Bld) [Ratio] 0 % 0-5 [facility] MCHC Auto (RBC) [Mass/Vol]Or dered By: Verito Jimenez on 11-13-2022 MCHC (RBC) [Mass/Vol] 31.3 g/dL 32-36 [facility] No Panel InformationOrdered By: Verito Jimenez on 11-13-2022 Estimated GFR (MDRD) Amer 86 mL/min >60 [facility] Comment on above: GFR Calc Estimated GFR (MDRD) Non-Af Amer 71 mL/min >60 [facility] Comment on above: Non- GFR Calc Platelets bldOrdered By: Gabriella Jimenez on 11-13-2022 Platelets (Bld) [#/Vol] 196 10*3/uL 150-450 [facility] Serum or plasma albumin parisa urement (mass/volume)Ordered By: Verito Jimenez on 11-13-2022 Albumin [Mass/Vol] 3.6 g/dL 3.2-5.0 [facility] Serum or plasma albumin/glob ulin mass ratioOrdered By: Verito Jimenez on 11-13-2022 Albumin/Globulin [Mass ratio] 1.1 {ratio} 0.9-2.4 [facility] Serum or plasma calcium parisa urement (mass/volume)Ordered By: Veritoantoni Jimenez on 11-13-2022 Calcium [Mass/Vol] 9.0 mg/dL 8.5-10.1 [facility] Serum or plasma creatinine m easurement (mass/volume)Ordered By: Veritoantoni Jimenez on 11-13-2022 Creatinine [Mass/Vol] 0.82 mg/dL 0.55-1.02 [facility] Comment on above: The validity of the calculated GFR & GFRAA in patients over 70 years has not been determined. Clinical correlation is essential. Serum or plasma urea nitroge n measurement (mass/volume)Ordered By: Verito Jimenez on 11-13-2022 Urea nitrogen [Mass/Vol] 11 mg/dL 7-18 [facility] Thin prep Papanicolaou smear with manual screeningOrdered By: Verito Jimenez on 11-13-2022 Thin prep Papanicolaou smear with manual screening 23 U/L 15-37 [facility] Thin prep Papanicolaou smear with manual screening 6 5-15 [facility] Thyroid stimulating immunogl obulins detectionon 04-13-2022 Thyroid stimulating immunoglobulins Ql (S) <0.10 IU/L 0.00-0.55 [facility] Work Phone: Comment on above: Performed at: [address] [id number] Director: Luis Fernando Biggs MD, Phone: [phone] Absolute lymphocyte counton 03-31-2022 Lymphocytes Auto (Unsp spec) [#/Vol] 2.00 10*3/uL 0.83-4.51 [facility] Work Phone: Basophil percentageon 2021 Basophils/100 WBC (Bld) 1.0 % 0-1 [facility] Work Phone: Bilirubin [Mass/Vol] 0.70 mg/dL 0.20-1.00 [facility] Work Phone: Comment on above: For patients on eltr ombopag therapy, use of Dimension Kershaw TBIL is not recommended. Chloride [Moles/Vol] 106 mmol/L 98-107 [facility] Work Phone: Cholesterol [Mass/Vol] 149 mg/dL <200 [facility] Work Phone: Comment on above: <200 mg/dL Desirable 200-240 mg/dL Borderline >240 mg/dL High Risk Eosinophils/100 WBC (Bld) 2.0 % 0-5 [facility] Work Phone: Glucose [Mass/Vol] 104 mg/dL 74-106 [facility] Work Phone: Comment on above: Fasting Glucose resu lt from 100 to 125 mg/dL suggests IMPAIRED HOMEOSTASIS per A.D.A. criteria. Neutrophils (Bld) [#/Vol] 6.4 10*3/uL 2.0-7.7 [facility] Work Phone: Neutrophils/100 WBC (Bld) 69.8 % 47-70 [facility] Work Phone: Potassium [Moles/Vol] 3.9 mmol/L 3.5-5.1 [facility] Work Phone: Protein [Mass/Vol] 7.1 g/dL 6.4-8.2 [facility] Work Phone: Sodium [Moles/Vol] 141 mmol/L 136-145 [facility] Work Phone: Triglyceride [Mass/Vol] 101 mg/dL <199 [facility] Work Phone: Comment on above: The drugs N-Acetylcy steine and Metamizole may falsely depress this assay.Serum Triglycerides Reference Interval Normal <150 mg/dL Borderline high 150 - 199 mg/dL High 200 - 499 mg/dL Very High > or = 500 mg/dL WBC (Bld) [#/Vol] 9.2 10*3/uL 4.4-11.0 [facility] Work Phone: Blood erythrocytes count (nu mber/volume)on 03-31-2022 RBC (Bld) [#/Vol] 4.71 10*6/uL 4.2-5.4 [facility] Work Phone: Blood hemoglobin measurement (mass/volume)on 03-31-2022 Hemoglobin (Bld) [Mass/Vol] 15.0 g/dL 12.0-15.0 [facility] Work Phone: Blood lymphocytes/100 leukoc yteson 03-31-2022 Lymphocytes/100 WBC (Bld) 21.7 % 19-41 [facility] Work Phone: Blood monocytes/100 leukocyt eson 03-31-2022 Monocytes/100 WBC (Bld) 5.1 % 0-10 [facility] Work Phone: Blood platelet mean volumeon 03-31-2022 Platelet mean volume (Bld) [Entitic vol] 11.1 fL 6.2-12.0 [facility] Work Phone: Determination of erythrocyte mean corpuscular volume (MCV)on 03-31-2022 MCV (RBC) [Entitic vol] 97.7 fL 81-99 [facility] Work Phone: Hematocrit Auto (Bld) [Volum e fraction]on 03-31-2022 Hematocrit (Bld) [Volume fraction] 46.0 % 37-47 [facility] Work Phone: Laboratory - Chemistry and C hemistry - challengeon 03-31-2022 ALP [Catalytic activity/Vol] 56 U/L 45-117 [facility] Work Phone: ALT [Catalytic activity/Vol] 27 U/L 13-56 [facility] Work Phone: CO2 [Moles/Vol] 28.0 mmol/L 21.0-32.0 [facility] Work Phone: Free T4 [Mass/Vol] 1.02 ng/dL 0.76-1.46 [facility] Work Phone: Globulin (S) [Mass/Vol] 3.6 g/dL 2.2-4.2 [facility] Work Phone: Magnesium [Mass/Vol] 1.9 mg/dL 1.6-2.6 [facility] Work Phone: Urea nitrogen/Creatinine [Mass ratio] 13.1 mg/mg 10-20 [facility] Work Phone: Laboratory - Hematology and Cell countson 03-31-2022 Erythrocyte distribution width (RBC) [Entitic vol] 45.1 fL 35.1-43.9 [facility] Work Phone: Erythrocyte distribution width (RBC) [Ratio] 12.5 % 11.6-14.6 [facility] Work Phone: Immature granulocytes/100 WBC (Bld) 0.400 % 0.0-0.9 [facility] Work Phone: Comment on above: IG% - Immature Granu locytes (promyelocytes, myelocytes and metamyelocytes) > 1% indicates that a LEFT SHIFT is Present. MCH (RBC) [Entitic mass] 31.8 pg 27.0-32.0 [facility] Work Phone: Nucleated RBC/100 WBC (Bld) [Ratio] 0 % 0-5 [facility] Work Phone: MCHC Auto (RBC) [Mass/Vol]on 03-31-2022 MCHC (RBC) [Mass/Vol] 32.6 g/dL 32-36 [facility] Work Phone: No Panel Informationon 03-31 Estimated GFR (MDRD) Amer 76 mL/min >60 [facility] Work Phone: Comment on above: GFR Calc Estimated GFR (MDRD) Non-Af Amer 63 mL/min >60 [facility] Work Phone: Comment on above: Non- GFR Calc Thyroglobulin Antibody See comment [facility] Work Phone: Comment on above: TEST RESULT LIMITSTg Ab+Thyroglobulin,ASIF or RIAThyroglobulin Antibody <1.0 IU/mL 0.0-0.9Thyroglobulin Antibody measured by Partha Marjorie MethodologyThyroglobulin by ASIF 14.6 ng/mL 1.5-38.5Comment: According to the National Academy of Clinical [employer]ochemistry, the reference interval for Thyroglobulin (TG) should be related to euthyroid patients and not for patients who underwent thyroidectomy. TG reference intervals for these patients depend on the residual mass of the thyroid tissue left after surgery. Establishing a post-operative baseline is recommended.The assay limit of quantitation is 0.1 ng/mLThyroglobulin measured by Partha Marrero Immunometric Assay TESTING PERFORMED AT [facility]. ORIGINAL REPORT ON FILE IN LAB CONTAINS ADDITIONAL TEST SITE INFORMATION. Thyroid Stimulating Hormone (TSH) 0.04 uIU/mL 0.358-3.74 [facility] Work Phone: Vitamin D 25-Hydroxy 43.0 ng/mL [facility] Work Phone: Comment on above: Vitamin D 25(OH) Sta tus Range Deficiency <20 ng/mL (50nmol/L) Insufficiency 20 - 30 ng/mL (50 - 75 nmol/L) Sufficiency 30 - 100 ng/mL (75 - 250 nmol/L) Toxicity >100 ng/mL (>250 nmol/L) Platelets bldon 03-31-2022 Platelets (Bld) [#/Vol] 237 10*3/uL 150-450 [facility] Work Phone: Serum or plasma albumin parisa urement (mass/volume)on 03-31-2022 Albumin [Mass/Vol] 3.5 g/dL 3.2-5.0 [facility] Work Phone: Serum or plasma albumin/glob ulin mass ratioon 03-31-2022 Albumin/Globulin [Mass ratio] 1.0 {ratio} 0.9-2.4 [facility] Work Phone: Serum or plasma calcium parisa urement (mass/volume)on 03-31-2022 Calcium [Mass/Vol] 9.2 mg/dL 8.5-10.1 [facility] Work Phone: Serum or plasma cholesterol in HDL measurement (mass/volume)on 03-31-2022 Cholesterol in HDL [Mass/Vol] 67 mg/dL >40 [facility] Work Phone: Comment on above: The drugs N-Acetylcy steine and Metamizole may falsely depress this assay. Reference Range HDL <40 mg/dL Low HDL Cholesterol HDL >or= 60 mg/dL High HDL Cholesterol Serum or plasma cholesterol in VLDL measurement (mass/volume)on 03-31-2022 Cholesterol in VLDL [Mass/Vol] 20 mg/dL 5-40 [facility] Work Phone: Serum or plasma creatinine m easurement (mass/volume)on 03-31-2022 Creatinine [Mass/Vol] 0.92 mg/dL 0.55-1.02 [facility] Work Phone: Comment on above: The validity of the calculated GFR & GFRAA in patients over 70 years has not been determined. Clinical correlation is essential. Serum or plasma low density lipoprotein (LDL) cholesterol measurement (mass/volume)on 03-31-2022 Cholesterol in LDL [Mass/Vol] 62 mg/dL 0-130 [facility] Work Phone: Serum or plasma thyroperoxid ase antibody assay (units/volume)on 03-31-2022 TPO Ab Qn See comment [facility] Work Phone: Comment on above: TEST RESULT LIMITSTh yroid Peroxidase (TPO) Ab <8 IU/mL 0-34 TESTING PERFORMED AT [facility]. ORIGINAL REPORT ON FILE IN LAB CONTAINS ADDITIONAL TEST SITE INFORMATION. Serum or plasma urea nitroge n measurement (mass/volume)on 03-31-2022 Urea nitrogen [Mass/Vol] 12 mg/dL 7-18 [facility] Work Phone: Thin prep Papanicolaou smear with manual screeningon 03-31-2022 Thin prep Papanicolaou smear with manual screening 16 U/L 15-37 [facility] Work Phone: Thin prep Papanicolaou smear with manual screening 7 5-15 [facility] Work Phone: Thyroid stimulating immunogl obulins detectionon 03-31-2022 Thyroid stimulating immunoglobulins Ql (S) TNP [facility] Work Phone: Comment on above: Test not performedQN S SPECIMEN Whole blood hemoglobin A1c/t otal hemoglobin ratio (mass fraction)on 03-31-2022 HbA1c (Bld) [Mass fraction] 5.2 % 3.8-5.6 [facility] Work Phone: Comment on above: Normal < 5.7 % Predi abetic 5.7 - 6.4 % Diabetic >or= 6.5 % Please note range changes. Chacorta 12-09-2021 CNPN Telephone (PODIWS) -- ADAN RYAN ([id number]) 1945 F Date Time Provider Department 12/09/21 SABAS DIETZ During your visit today, we recorded the following information about you: Elis Kay RN 12/09/2021 10:30 AM Signed ----- Message from Sabas Dietz sent at 12/09/2021 10:06 AM EDT ----- Please call patient to inform her that there are no spurs to the tip of the toe (under the nail). If she has pain with the nail, she could consider removal of the toenail. DEMETRIO Chino RN 12/09/2021 10:31 AM Signed Patient notified of results and provider's instructions. Patient verbalizes understanding. Elis Kay RN Allergies As of Date: 12/09/2021 (No Known Allergies) Date Reviewed: 12/08/2021 Reviewed by: Lara Neely Ma - Fully Assessed Reason for Visit: Results [95] Prescriptions as of 12/09/2021 - Ascorbic Acid 1,000 mg tablet Take 1,000 mg by mouth. - calcium/magnesium/zinc ([id number]-INOQ) 333-133-5 mg tab Take 3 tablets by mouth. - Cholecalciferol, Vitamin D3, 25 mcg (1,000 unit) cap Take 2,000 Units by mouth. - Multivitamin capsule Take 1 capsule by mouth. - alendronate (FOSAMAX) 10 mg tablet TAKE 1 TABLET EVERY MORNING WITH A GLASS OF WATER ON AN EMPTY STOMACH - apixaban (ELIQUIS) 2.5 mg tab tab(s) Take 2.5 mg by mouth twice daily. - rosuvastatin (CRESTOR) 5 mg tablet Problem List As Of Date: 12/09/2021 (None) Encounter Status:Closed by ELIS KAY RN on 12/09/21 [facility] LATASHAOVhany 12-08-2021 CNOV Office Visit (PODIWS ) -- ADAN RYAN ([id number]) 1945 F Date Time Provider Department 12/08/21 1:15 PM SABAS DIETZ During your visit today, we recorded the following information about you: Lara Neely Maya 12/08/2021 1:44 PM Signed Patient presents with: Right Foot - New Left Foot - New Fungus bilateral great toenails AMB ROOMING INTAKE FLOWSHEET DATA Risk Screening Do you have concerns about personal safety or safety in the home?: No Patient here today for possible fungus on bilateral great toenails and left toenail. Sabas Dietz DPM 12/08/2021 1:44 PM Signed Initial Podiatric Office Visit: Chief Complaint: This 76 year old female who presents with chief complaint:toenail fungus HPI Patient presents to clinic for evaluation of b/l feet. Patient complains of thick discolored and deformed toenails of b/l hallux and left 4th toenail The nails have been discolored for 1 year Patient has no prior treatment other than cutting of the nail. Patient is here to discuss options. PAIN EVALUATION No data found in the last 1 encounters. No results found for: HBA1C PCP: Lucas Guzman MD PAST MEDICAL HISTORY Diagnosis Date - History of high cholesterol - Miscarriage - Osteoporosis - Pulmonary embolism (HCC) Current Outpatient Medications Medication Sig - Ascorbic Acid 1,000 mg tablet Take 1,000 mg by mouth. - calcium/magnesium/zinc ([id number]-GOSL) 333-133-5 mg tab Take 3 tablets by mouth. - Cholecalciferol, Vitamin D3, 25 mcg (1,000 unit) cap Take 2,000 Units by mouth. - Multivitamin capsule Take 1 capsule by mouth. - alendronate (FOSAMAX) 10 mg tablet TAKE 1 TABLET EVERY MORNING WITH A GLASS OF WATER ON AN EMPTY STOMACH - apixaban (ELIQUIS) 2.5 mg tab tab(s) Take 2.5 mg by mouth twice daily. - rosuvastatin (CRESTOR) 5 mg tablet No current facility-administered medications for this visit. ALLERGIES No Known Allergies PAST SURGICAL HISTORY Procedure Laterality Date - ARTHRP ACETBLR/PROX FEM PROSTC AGRFT/ALGRFT Left 2009 Hip replacement, total - DILATION AND CURETTAGE DXAND/THER NONOBSTETRIC Dilation AND curettage - TONSILLECTOMY AND ADENOIDECTOMY FAMILY HISTORY Problem Relation Age of Onset - Cancer Mother 95 - Thyroid Mother - Cancer Father 60 Leukemia - Schizophrenia Sister - Thyroid Sister Hypothyroidism - Osteoporosis Sister - Breast Cancer Sister 2020- mastectomy of right breast - Arthritis Brother - Osteoporosis Brother Social History Tobacco Use - Smoking status: Never Smoker - Smokeless tobacco: Never Used Vaping Use - Vaping Use: Never used Substance Use Topics - Alcohol use: Yes Comment: Occasionally - Drug use: Never REVIEW OF SYSTEMS GENERAL: Negative for Malaise, significant weight loss, fever RESPIRATORY: Negative for cough, wheezing and shortness of breath CARDIOVASCULAR: Negative for chest pain, leg swelling and palpitations GI: Negative for abdominal discomfort, blood in stools or black stools and change in bowel habits : Negative for dysuria, frequency and incontinence MUSCULOSKELETAL: Negative for joint pain or swelling, back pain, and muscle pain. SKIN: Negative for lesions, rash, and itching. HEMATOLOGY/LYMPHOLOGY Negative for prolonged bleeding, bruising easily, and swollen nodes. ENDOCRINE: Negative for cold or heat intolerance, polyuria, polydipsia and goiter. NEURO: negative Physical Exam: Constitutional: Pt is a well developed 76 year old female who is alert, oriented and cooperative Eyes: Following during examination. No redness or drainage. Respiratory: RR normal and nonlabored. Even breathing. No evidence of distress or shortness of breath. Psychology: Patient is engaged during conversation. Normal affect and mood. Does not appear depressed or anxious during encounter. Vascular: Dorsalis pedis and posterior tibial pulses faintly palpable b/l Capillary Fill time < 5 seconds to digits 1-5 b/l Skin temperature warm to cool proximal to distal b/l Hair growth present to digits Neurological: intact light touch/epicritic sensation b/l intact protective sensation no significant neurological deficits Dermatological: B/l hallux and left 4th toenail is thick, dystrophic, discolored. Webspaces clean and dry 1-4 b/l. Skin appears well hydrated and supple. good color, texture, turgor. No open lesions present. No callosities present. Musculoskeletal/Orthopaedi c: Patient has no pain to palpation of b/l feet Foot type is neutral structurally AJ ROM is full with knee extended and flexed 1st MPJ is full when loaded and no pain or crepitus are noted with ROM. MTJ, STJ are full and free of pain and crepitus. +5/5 muscle strength dorsiflexion, plantarflexion, inversion, eversion b/l Palpable exostosis noted to distal tuft of b/l hallux Radiographs: order (more content not included)... Normal [facility] No Panel Informationon 12-08 [facility] XR TOE 3V AP/LAT/OBL LTon XR TOE 3V AP/LAT/OBL LT * * *Final Report* * * DATE OF EXAM: Dec 08 2021 2:01PM [id number] - XR TOE 3V AP/LAT/OBL LT / PROCEDURE REASON: multiple diagnoses * * * * Physician Interpretation * * * * EXAMINATION: XR TOE 3V AP/LAT/OBL LT HISTORY: Abnormal toenail growth on the great toe x 1 year. Onychomycosis. Onychodystrophy. Subungual exostosis. TECHNIQUE: XR TOE 3V AP/LAT/OBL LT Laterality: LEFT Number of different views (projections): 3 M: XB_1 COMPARISON: There are no prior relevant examinations available for comparison within the [facility]. RESULT: AP, oblique and lateral radiographs of the left great toe show no acute osseous, articular or soft tissue process. Mild hallux valgus with bunion formation is noted at the first metatarsal head where there is a slight punched out healed erosive change at the metatarsal head seen on the oblique view. Joint spaces are preserved and there are no erosive or bony destructive changes. IMPRESSION: Mild degenerative change. No acute erosive or bony destructive changes. Manager Endoscopy: [facility] Transcribe Date/Time: Dec 08 2021 2:21P Dictated by : SOPHY TOLEDO MD This examination was interpreted and the report reviewed and electronically signed by: SOPHY TOLEDO MD on Dec 08 2021 2:23PM EST [id number] Normal [facility] XR TOE 3V AP/LAT/OBL RTon XR TOE 3V AP/LAT/OBL RT * * *Final Report* * * DATE OF EXAM: Dec 08 2021 2:01PM [id number] - XR TOE 3V AP/LAT/OBL RT / PROCEDURE REASON: multiple diagnoses * * * * Physician Interpretation * * * * EXAMINATION: XR TOE 3V AP/LAT/OBL RT HISTORY: Abnormal toenail growth on the great toe x 1 year. Onychomycosis. Onychodystrophy. Subungual exostosis. TECHNIQUE: XR TOE 3V AP/LAT/OBL RT Laterality: RIGHT Number of different views (projections): 3 M: XB_1 COMPARISON: There are no prior relevant examinations available for comparison within the [facility]. RESULT: AP, oblique and lateral radiographs of the right great toe show no acute osseous, articular or soft tissue process. Mild hallux valgus with bunion formation present. Joint spaces are preserved and there are no erosive or bony destructive changes. IMPRESSION: No acute bony process. No erosive or bony destructive changes. [facility] Transcribe Date/Time: Dec 08 2021 2:23P Dictated by : SOPHY TOLEDO MD This examination was interpreted and the report reviewed and electronically signed by: SOPHY TOLEDO MD on Dec 08 2021 2:26PM EST [id number] Normal [facility] No Panel Informationon 10-10 Enteric Bacteriology [facility] Work Phone: Basophil percentageon 2021 Bilirubin [Mass/Vol] 0.80 mg/dL 0.20-1.00 [facility] Work Phone: Comment on above: For patients on eltr ombopag therapy, use of Dimension Kershaw TBIL is not recommended. Chloride [Moles/Vol] 106 mmol/L 98-107 [facility] Work Phone: Cholesterol [Mass/Vol] 174 mg/dL <200 [facility] Work Phone: Comment on above: <200 mg/dL Desirable 200-240 mg/dL Borderline >240 mg/dL High Risk Glucose [Mass/Vol] 86 mg/dL 74-106 [facility] Work Phone: Potassium [Moles/Vol] 4.1 mmol/L 3.5-5.1 [facility] Work Phone: Protein [Mass/Vol] 7.4 g/dL 6.4-8.2 [facility] Work Phone: Sodium [Moles/Vol] 139 mmol/L 136-145 [facility] Work Phone: Triglyceride [Mass/Vol] 122 mg/dL [facility] Work Phone: Comment on above: The drugs N-Acetylcy steine and Metamizole may falsely depress this assay.Serum Triglycerides Reference Interval Normal <150 mg/dL Borderline high 150 - 199 mg/dL High 200 - 499 mg/dL Very High > or = 500 mg/dL Laboratory - Chemistry and C hemistry - challengeon 10-04-2021 ALP [Catalytic activity/Vol] 61 U/L 45-117 [facility] Work Phone: ALT [Catalytic activity/Vol] 37 U/L 13-56 [facility] Work Phone: CO2 [Moles/Vol] 27.0 mmol/L 21.0-32.0 [facility] Work Phone: Globulin (S) [Mass/Vol] 3.7 g/dL 2.2-4.2 [facility] Work Phone: Urea nitrogen/Creatinine [Mass ratio] 11.0 mg/mg 10-20 [facility] Work Phone: No Panel Informationon 10-04 Estimated GFR (MDRD) Amer 87 mL/min >60 [facility] Work Phone: Comment on above: GFR Calc Estimated GFR (MDRD) Non-Af Amer 72 mL/min >60 [facility] Work Phone: Comment on above: Non- GFR Calc Vitamin D 25-Hydroxy 37.9 ng/mL [facility] Work Phone: Comment on above: Vitamin D 25(OH) Sta tus Range Deficiency <20 ng/mL (50nmol/L) Insufficiency 20 - 30 ng/mL (50 - 75 nmol/L) Sufficiency 30 - 100 ng/mL (75 - 250 nmol/L) Toxicity >100 ng/mL (>250 nmol/L) Serum or plasma albumin parisa urement (mass/volume)on 10-04-2021 Albumin [Mass/Vol] 3.7 g/dL 3.2-5.0 [facility] Work Phone: Serum or plasma albumin/glob ulin mass ratioon 10-04-2021 Albumin/Globulin [Mass ratio] 1.0 {ratio} 0.9-2.4 [facility] Work Phone: Serum or plasma calcium parisa urement (mass/volume)on 10-04-2021 Calcium [Mass/Vol] 8.5 mg/dL 8.5-10.1 [facility] Work Phone: Serum or plasma cholesterol in HDL measurement (mass/volume)on 10-04-2021 Cholesterol in HDL [Mass/Vol] 61 mg/dL [facility] Work Phone: Comment on above: The drugs N-Acetylcy steine and Metamizole may falsely depress this assay. Reference Range HDL <40 mg/dL Low HDL Cholesterol HDL >or= 60 mg/dL High HDL Cholesterol Serum or plasma cholesterol in VLDL measurement (mass/volume)on 10-04-2021 Cholesterol in VLDL [Mass/Vol] 24 mg/dL 5-40 [facility] Work Phone: Serum or plasma creatinine m easurement (mass/volume)on 10-04-2021 Creatinine [Mass/Vol] 0.82 mg/dL 0.55-1.02 [facility] Work Phone: Comment on above: The validity of the calculated GFR & GFRAA in patients over 70 years has not been determined. Clinical correlation is essential. Serum or plasma low density lipoprotein (LDL) cholesterol measurement (mass/volume)on 10-04-2021 Cholesterol in LDL [Mass/Vol] 89 mg/dL 0-130 [facility] Work Phone: Serum or plasma urea nitroge n measurement (mass/volume)on 10-04-2021 Urea nitrogen [Mass/Vol] 9 mg/dL 7-18 [facility] Work Phone: Thin prep Papanicolaou smear with manual screeningon 10-04-2021 Thin prep Papanicolaou smear with manual screening 28 U/L 15-37 [facility] Work Phone: Thin prep Papanicolaou smear with manual screening 6 5-15 [facility] Work Phone: No Panel Information [facility] Vital Signs Date Time Vital Sign Value Performing Clinician Faci lity 01-28-2025 08:01-0400 Body mass index (BMI) [Ratio] 27 kg/m2 Dr. Lucas Guzman MD Work Phone: [facility] 01-28-2025 08:01-0400 Body temperature 97.5 [degF] Dr. Lucas Guzman MD Work Phone: [facility] 01-28-2025 08:01-0400 Body weight [address] Lucas Guzman MD Work Phone: [facility] 01-28-2025 08:01-0400 Diastolic blood pressure 61 mm[Hg] Dr. Lucas Guzman MD Work Phone: [facility] 01-28-2025 08:01-0400 Heart rate 76 /min Dr. Lucas Guzman MD Work Phone: [facility] 01-28-2025 08:01-0400 Respiratory rate 18 /min Dr. Lucas Guzman MD Work Phone: [facility] 01-28-2025 08:01-0400 SaO2% (BldA) [Mass fraction] 97 % Dr. Lucas Guzman MD Work Phone: [facility] 01-28-2025 08:01-0400 Systolic blood pressure 95 mm[Hg] Dr. Lucas Guzman MD Work Phone: [facility] 12-22-2024 11:16-0400 Body height 175.[address] Lucas Guzman MD Work Phone: [facility] 12-22-2024 11:14-0400 Body mass index (BMI) [Ratio] 26.7 kg/m2 Dr. Lucas Guzman MD Work Phone: [facility] 12-22-2024 11:14-0400 Body weight 82.[address] Lucas Guzman MD Work Phone: 2(619)[phone] [place] [address] 12-22-2024 11:14-0400 Diastolic blood pressure 63 mm[Hg] Dr. Lucas Guzman MD Work Phone: [facility] 12-22-2024 11:14-0400 Heart rate 92 /min Dr. Lucas Guzman MD Work Phone: 7(037)017-767991 [place] [address] 12-22-2024 11:14-0400 Respiratory rate 18 /min Dr. Lucas Guzman MD Work Phone: 9(860)[phone] [place] [address] 12-22-2024 11:14-0400 SaO2% (BldA) [Mass fraction] 97 % Dr. Lucas Guzman MD Work Phone: [facility] 12-22-2024 11:14-0400 Systolic blood pressure 103 mm[Hg] Dr. Lucas Guzman MD Work Phone: [facility] 05-09-2023 12:37-0500 Body temperature 98.3 [degF] Dr. Lucas Guzman Work Phone: [facility] 05-09-2023 12:37-0500 Diastolic blood pressure 58 mm[Hg] Dr. Lucas Guzman Work Phone: [facility] 05-09-2023 12:37-0500 Heart rate 81 /min Dr. Lucas Guzman Work Phone: [facility] 05-09-2023 12:37-0500 Respiratory rate 18 /min Dr. Lucas Guzman Work Phone: [facility] 05-09-2023 12:37-0500 SaO2% (BldA) [Mass fraction] 96 % Dr. Lucas Guzman Work Phone: [facility] 05-09-2023 12:37-0500 Systolic blood pressure 109 mm[Hg] Dr. Lucas Guzman Work Phone: [facility] 05-09-2023 11:32-0500 Body height 175.[address] Lucas Guzman Work Phone: [facility] 05-09-2023 11:32-0500 Body mass index (BMI) [Ratio] 25.8 kg/m2 Dr. Lucas Guzman Work Phone: [facility] 05-09-2023 11:32-0500 Body weight 79.[address] Lucas Guzman Work Phone: [facility] 01-16-2023 13:56-0400 Body height 175.[address] Lucas Guzman Work Phone: [facility] 12-07-2022 14:52-0400 Body height 175.[address] Lucas Guzman Work Phone: [facility] 12-07-2022 14:52-0400 Body mass index (BMI) [Ratio] 24.6 kg/m2 Dr. Lucas Guzman Work Phone: [facility] 12-07-2022 14:52-0400 Body weight 75.[address] Lucas Guzman Work Phone: [facility] 12-07-2022 14:52-0400 Diastolic blood pressure 67 mm[Hg] Dr. Lucas Guzman Work Phone: [facility] 12-07-2022 14:52-0400 Heart rate 82 /min Dr. Lucas Guzman Work Phone: [facility] 12-07-2022 14:52-0400 Respiratory rate 16 /min Dr. Lucas Guzman Work Phone: [facility] 12-07-2022 14:52-0400 Systolic blood pressure 100 mm[Hg] Dr. Lucas Guzman Work Phone: [facility] 08-22-2022 13:13-0500 Body height 175.[address] Lucas Guzman Work Phone: [facility] 08-22-2022 13:13-0500 Body mass index (BMI) [Ratio] 25.1 kg/m2 Dr. Lucas Guzman Work Phone: [facility] 08-22-2022 13:13-0500 Body weight 77.[address] Lucas Guzman Work Phone: [facility] 08-22-2022 13:13-0500 Diastolic blood pressure 71 mm[Hg] Dr. Lucas Guzman Work Phone: [facility] 08-22-2022 13:13-0500 Heart rate 86 /min Dr. Lucas Guzman Work Phone: [facility] 08-22-2022 13:13-0500 Respiratory rate 16 /min Dr. Lucas Guzman Work Phone: [facility] 08-22-2022 13:13-0500 Systolic blood pressure 113 mm[Hg] Dr. Lucas Guzman Work Phone: [facility] Encounters Encounter Date Encounter Type Care Provider Facility Start: 05-13-2025 ambulatory [facility] Facility:[facility] Start: 05-06-2025 ambulatory Salina Lopez NP Fac ility:[facility] Start: 01-28-2025 End: 01-28-2025 Patient encounter procedure Salina Lopez NP-C -[facility] Work Phone: Start: 01-28-2025 End: 01-28-[address] Lucas Guzman MD Work Phone: -[facility] Start: 01-13-2025 End: 01-13-[address] Lucas Guzman MD Work Phone: -[facility] Start: 01-13-2025 End: 01-13-2025 Patient encounter procedure Noam Romero PA -[facility] Work Phone: Start: 01-13-2025 End: 01-13-2025 ambulatory Lucas Guzman Facility:[facility] Start: 12-22-2024 End: 12-22-2024 Patient encounter procedure Noam KOENIG -[facility] Work Phone: Start: 12-22-2024 End: 12-22-[address] Lucas Guzman MD Work Phone: -[facility] Start: 11-18-2024 End: 11-18-[address] Lucas Guzman MD Work Phone: [facility] Work Phone: Start: 11-18-2024 End: 11-18-[address] Lucas Guzman MD -[facility] Start: 11-18-2024 End: 11-18-2024 ambulatory Lucas Guzman Facility:[facility] Start: 10-22-2024 ambulatory Lucas Guzman Facilit y:[facility] Start: 10-22-2024 Non-patient / Non-visit Dr. Delvis andrade MD -[facility] Start: 10-22-2024 End: 10-22-2024 Patient encounter procedure Maria R KOENIG -[facility] Work Phone: Start: 10-22-2024 End: 10-22-2024 ambulatory Lucas Guzman Facility:[facility] Start: 07-31-2024 End: 07-31-[address] Lucas Guzman MD -[facility] Work Phone: Start: 07-31-2024 End: 07-31-2024 ambulatory Lucas Guzman Facility:[facility] Start: 07-28-2024 ambulatory Lucas Guzman Facilit y:[facility] Start: 07-28-2024 Non-patient / Non-visit Dr. Fausto rosenthal MD -[facility] Start: 07-28-2024 End: 07-28-[address] Fausto Hutton MD -[facility] Work Phone: Start: 07-28-2024 End: 07-28-2024 ambulatory Fausto Brennen Facility:[facility] Start: 07-25-2024 End: 07-25-2024 ambulatory Lucas Guzman Facility:[facility] Start: 07-22-2024 End: 07-22-2024 ambulatory [place] Guzman [place] Start: 07-22-2024 End: 07-22-2024 ambulatory Lucas Guzman Facility:[facility] Start: 07-16-2024 End: 07-16-2024 ambulatory Lucas Guzman Facility:[facility] Start: 07-16-2024 End: 07-16-2024 ambulatory Fausto Brennen Facility:[facility] Start: 09-12-2023 Non-patient / Non-visit Dr. Helen Guzman Work Phone: [facility] Start: 09-12-2023 End: 09-12-[address] Lucas Guzman Work Phone: [facility] Work Phone: Start: 09-12-2023 End: 09-12-[address] Lucas Guzman Work Phone: [facility]-Cardiovascular Services Work Phone: Start: 05-14-2023 End: 05-14-[address] Lucas Guzman Work Phone: [facility] Work Phone: Start: 05-14-2023 End: 05-14-[address] Lucas Guzman Work Phone: [facility] Start: 05-09-2023 Non-patient / Non-visit Dr. Helen Guzman Work Phone: [facility] Start: 05-09-2023 End: 05-09-2023 Admission to same day surgery center Dr. Lucas Guzman Work Phone: [facility]-Endoscopy Work Phone: Start: 05-09-2023 End: 05-09-[address] Lucas Guzman Work Phone: [facility] Work Phone: Start: 03-26-2023 End: 03-26-[address] Lucas Guzman Work Phone: [facility] Work Phone: Start: 01-23-2023 End: 01-23-[address] Lucas Guzman Work Phone: [facility] Work Phone: Start: 01-23-2023 End: 01-23-[address] Lucas Guzman Work Phone: [facility]-Outpatient Breast Imaging Work Phone: Start: 01-16-2023 End: 01-16-[address] Lucas Guzman Work Phone: [facility]-Outpatient Bone Densitometry Work Phone: Start: 12-15-2022 Non-patient / Non-visit Dr. Helen Guzman Work Phone: [facility] Start: 12-15-2022 End: 12-15-[address] Lucas Guzman Work Phone: [facility] Work Phone: Start: 12-15-2022 End: 12-15-[address] Lucas Guzman Work Phone: [facility]-Cardiovascular Services Work Phone: Start: 12-07-2022 End: 12-07-[address] Lucas Guzman Work Phone: [facility] Start: 11-16-2022 Non-patient / Non-visit Dr. Helen Guzman Work Phone: [facility] Start: 11-15-2022 End: 11-15-[address] Lucas Guzman Work Phone: [facility] Work Phone: Start: 11-15-2022 End: 11-15-[address] [facility] Start: 11-13-2022 End: 11-13-[address] Lucas Guzman Work Phone: [facility] Work Phone: Start: 11-13-2022 End: 11-13-[address] Lucas Guzman Work Phone: [facility] Start: 08-29-2022 Non-patient / Non-visit Dr. Helen Guzman Work Phone: [facility] Start: 08-29-2022 End: 08-29-[address] Lucas Guzman Work Phone: [facility] Work Phone: Start: 08-29-2022 End: 08-29-[address] Lucas Guzman Work Phone: [facility]-Cardiovascular Services Start: 08-22-2022 End: 08-22-[address] Lucas Guzman Work Phone: [facility] Start: 04-13-2022 End: 04-13-2022 ambulatory [facility] Work Phone: Start: 04-13-2022 End: 04-13-2022 Patient encounter procedure [facility] Start: 03-31-2022 End: 03-31-2022 ambulatory [facility] Work Phone: Start: 03-31-2022 End: 03-31-2022 Patient encounter procedure [facility] Start: 12-09-2021 Telephone encounter Sabas Torres Work Phone: Podiatry Comment on above: Results Start: 12-08-2021 End: 12-08-2021 Subsequent hospital visit by physician Matt [facility] Janice Ta Work Phone: Radiology Comment on above: Onychomycosis [B35.1 ] Start: 10-19-2021 End: 10-19-2021 Patient encounter procedure [facility]-Laboratory, Specimen Start: 10-14-2021 End: 10-14-2021 Patient encounter procedure Colette Godwin Gold OD Work Phone: Ophthalmology Comment on above: 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 (Primary Dx); Trichiasis 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 Lucas Guzman MD Work Phone: Start: 11-18-2024 Vitamin D, 25-hydrox y measurement Dr. Lucas Guzman MD Work Phone: Comment on above: Vitamin D StatusDefi ciency: <20 ng/mL (50nmol/L)Insufficiency: 20-30 ng/mL (50-75 nmol/L)Sufficiency: 30-100 ng/mL (75-250 nmol/L)Toxicity: >100 ng/mL (>250 nmol/L) Start: 07-31-2024 Measurement of renal function Dr. Lucas Guzman MD Work Phone: Comment on above: GFR Calc Start: 05-09-[address] Lucas loredo Work Phone: Start: 01-23-2023 Screening mammography Aspen Guzman Work Phone: Start: 01-16-2023 Dual energy X-ray absorptiometry Dr. Lucas Guzman Work Phone: Start: 11-15-[address] [address] parasites identification [address] Lucas Guzman Work Phone: Start: 12-08-2021 Radex toe minimum 2 views Sabas Dietz Work Phone: Start: 10-19-2021 End: 10-19-2021 Clostridium difficile detection Start: 10-14-2021 Correction trichiasi s epilation forceps only Colette Gold OD Work Phone: Start: 10-14-2021 Computerized ophthal luis imaging retina Colette Gold OD Work Phone: Start: 10-10-2021 Enteric Bacteriology Start: 09-01-2021 Screening mammography H/O: surgery Hx of dilation a nd curettage History of tonsillectomy Hx of tonsillect cheryl [facility] OR parasites identification Dr. Lucas Guzman Work Phone: Plan of Treatment Date Care Activity Detail Author Start: 05-09-2023 Patient discharge [facility] Start: 11-15-2022 Procedure [facility] Start: 08-14-2021 COVID-19 VACCINE (4 - Booster for Pfizer series) COVID-19 VACCINE (4 - Booster for Pfizer series) [facility] Start: 06-25-2021 ADVANCE DIRECTIVE DISCUSSION ADVANCE DIRECTIVE DISCUSSION [facility] Start: 2009 BONE DENSITY BONE DENSITY [facility] Start: 2009 PNEUMOCOCCAL: 65+ (1 - PCV) PNEUMOCOCCAL: 65+ (1 - PCV) [facility] Start: 2009 PNEUMOVAX AGE 65 AND OVER WITH 5YR LOOKBACK (#1) PNEUMOVAX AGE 65 AND OVER WITH 5YR LOOKBACK (#1) [facility] Start: 1994 SHINGRIX VACCINE (1 of 2) SHINGRIX VACCINE (1 of 2) [facility] Start: 1989 DIABETES SCREEN DIABETES SCREEN [facility] Start: 04-07-1964 Urine microalbumin profile DTAP,TDAP,TD (1 - Tdap) [facility] Start: 1962 HEPATITIS C SCREENING HEPATITIS C SCREENING [facility] Start: 1956 Adult depression screening assessment DEPRESSION SCREENING [facility] Cardiovascular stres s testing [facility] Ova and Parasites Ova and Parasites [facility] Ova and parasites identified in Unspecified specimen by Light microscopy [facility] Patient referral [facility] Work Phone: Polysomnography [facility] Procedure [facility] Thyroglobulin antibo dy measurement [facility] Work Phone: Thyroid stimulating immunoglobulins actual/normal in Serum [facility] Work Phone: Thyroperoxidase Ab [Units/volume] in Serum or Plasma [facility] Work Phone: Payers Date Payer Category Payer Self-pay [id number] 2021 Medicare [id number] Private Health Insurance I [id number] 2020 Private Health Insurance [employer] A ETNA MEDICARE SUPPLEMENT [id number] 2020-Present [phone] [address] [address] [place] [address] Indemnity [id number] 2009 Medicare MEDICARE MEDICAR E A AND B [id number] 2009-Present [phone] [place] [address] Medicare [id number] Unknown [id number] Unknown [id number] .[id number] Unknown [id number] [id number] .2.462 Unknown [id number] [id number] .2.462 Unknown [id number] .2.462 Unknown [id number] [id number] .2.462 Unknown [id number] [id number] .2.462 Unknown [id number] [id number] .2.462 Unknown [id number] [id number] .2.462 Unknown [id number] [id number] .2.462 Unknown [id number] [id number] .2.462 Unknown [id number] [id number] .2.462 Unknown [id number] [id number] .2.462 Unknown [id number] [id number] .2.462 Unknown [id number] [id number] .2.462 Unknown [id number] [id number] .2.462 Unknown [id number] .2.462 Social History Date Type Detail Facility Start: 04-16-2021 End: 05-04-2023 Tobacco smoking status WVIS Unknown if ever smoked [facility] Start: 1945 Sex Assigned At Female [facility] Start: 05-21-2020 End: 04-16-2024 Tobacco smoking status NHIS Never smoked tobacco [facility] Work Phone: Start: 05-21-2020 Tobacco use and exposure Smokeless tobacco non-user [facility] Work Phone: Start: 10-14-2021 End: 12-08-2021 Alcohol intake Current drinker of alcohol (finding) [facility] Start: 05-21-2020 History SDOH Alcohol Comment Occasionally [facility] Start: 1945 Sex Assigned At Not on file [facility] Start: 10-04-2021 End: 12-08-2021 Exposure to SARS-CoV-2 (event) Not sure [facility] Medical Equipment Procedure Code Equipment Code Equipment Origin al Text Equipment Identifier Dates [id number] Start: 04-16-2024 [id number] FDA Start: 04-16-2024 [id number] FDA Start: 04-16-2024 [id number] FDA Start: 04-16-2024 Goals Date Patient Goal Desired Activity /State Mental Status Date Assessment Result Facility 05-09-2023 Cognitive function Voice/Name [facility] Work Phone: Clinical Notes 10-14-2021 to 12-22-2024 Note Date & Type Note Facility 12-22-2024 Evaluation note Diagnosis Onset Date Resolution Dyslipidemia chronic December 22 11:04am Fatigue chronic December 22 11:04am History of pulmonary embolism chronic December 22, 2024 11:04am Orthostatic hypotension chronic J 2024 11:04am Venous insufficiency (chronic) (peripheral) chronic November 11:04am [facility] Work Phone: 1(462) 576-157211-15-2023 History and physical note Author Keenan Friend [facility] May 09, 2023 11:31am Note Date/Time May 09, 2023 11:31am [facility] Medical Records Department [address] [place] [address] History & Physical Exam 05/09/23 1130 MR#: [id number] Acct: [id number] Name: ADAN RYAN Rep #:[id number] : 1945 77 From: Keenan Friend DO PCP: Dr. Lucas Guzman MD [place] [place] [address] History and Physical Date of Admission: 05/09/23 ester presents to the office today for surgical consultation regarding a screening colonoscopy. The patient is referred by Dr Lucas Guzman and a written copy my surgical consult recommendations will be returned to him. 77-year-old female. Apparently she is reasonably recent Del transferred medical care from [facility] to more locally here. Records from [facility] apparently have been very difficult to retrieve. There is evidence suggestive by the patient of her previous colonoscopy 2006. No family history of colon cancer. 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 She is still on Eliquis therapy since that time. She states that she did see a chief dispatcher but again her reports are somewhat vague. She states that the time of the event she was doingmore sitting but apparently the etiology to the DVT and PE according to her was not clarified. Looking through charting it is also apparent that February 2020 the patient hadstool analysis done. On direct questioning the patient she then does recall that he has she had some diarrhea issues at that time but thinks that those havemostly resolved. She is not currently complaining of abdominal pain. No bright red blood per rectum or melena. As noted above she is now establishing care locally. Because of palpitations she underwent a cardiac evaluation locally. To my understanding no acute features have been identified and the patient is felt to be appropriate for endoscopic evaluation. She also complains of recent chronic diarrhea for the past year. She does complain weight loss. She does complain of some nausea without vomiting. She denies any chest pain shortness of breath. HPI HPI HPI: ADAN RYAN, is a 75 F who presents to the office today for ROS General General: Yes fatigue; No weight change, appetite, colon cancer, breast cancer or weakness HEENT HEENT: No difficulty swallowing, eye injury, eye surgery, swollen glands or hoarseness Endo Endocrine: No thyroid disease, diabetes mellitus, thyroid cancer, Hair loss, heat intolerance or cold intolerance Skin Skin: No rash or changing moles Musc Musculoskeletal: Yes back problems; No arthritis, rheumatoid arthritis, gout or joint pain Cardio Cardiovascular: No murmur, pacemaker, heart disease, atrial fibrillation, high blood pressure, heart attack, heart stent, palpitations, shortness of breat withexertion or chest pain Psych Psychiatric: No depression, anxiety or hearing voices Resp Respiratory: No shortness of breath, No sleep apnea, No cough, No COPD, No asthma, No emphysema and No wheezing Gastro Gastrointestinal: No abdominal pain, No nausea or vomiting, No diarrhea, No constipation, No blood in stool, No acid reflux, No hemorrhoids, No ulcers, No gallbladder problem and No black,tarry stools Rodney Hematologic: Yes blood thinners, No blood disorders, No bleeding, No anemia and Yes blood clots Neuro Neurologic: No weakness Exam Const General: cooperative, healthy appearing and comfortable [facility] Head: normal to inspection Eyes General: appearance normal, both eyes and all related structures Resp Effort & Inspection: normal respiratory effort Auscultation: clear to auscultation bilaterally Cardio Rate: regular rate Rhythm: regular rhythm Heart Sounds: no murmurs GI Palpation: soft and no hepatosplenomegaly Auscultation: normal bowel sounds Musc Cervical Spine: normal cervical lordosis Neuro General: patient alert, patient awake and patient oriented x3 Extrem General: no calf tenderness bilaterally Psych Affect: normal affect COVID (Procedure Consent) Procedure Criteria Procedure Criteria: Yes Elective The surgeon/proceduralist and patient have discussed in detail the risk of exposure to and/or potential harm posed by the COVID-19 virus with having a surgery/procedure at this time versus the risk of? delaying the surgery/procedure. It is not possible to know either the risk of delaying the surgery or procedure or chance of getting an infection with perfectaccuracy, but a joint decision was made between the patient and the surgeon/proceduralist ?to proceed at this time with the scheduled surgery/procedure as indicated on the consent form. Assessment and Plan Assessment and Plan (1) Screening for intestinal cancer: Status: Acute Plan Details Additional Comments: The patient is establishing care locally. Trying to updateher medical necessities. I concur with recommendations for colonoscopy with possible biopsy or polypectomy as indicated. She is aware of the technique, benefit, risk, alternatives. She has had an opportunity to ask and have questions answered. The long-term use of Eliquis for her DVT and pulmonary embolus somewhat less clear to me. We will have her hold her anticoagulation for 48 hours preoperatively. We will then advised the patient on when she can restart. Regarding the long-term use I will defer that to Dr Lucas Guzman. (2) she will also get assessed for microscopic colitis, inflammatory colitis, inflammatory bowel disease and infectious colitis. She has had an opportunity to ask and have questions answered. We will utilize monitored anesthesia care. We will schedule and proceed at her discretion. 05/09/23 1131 <Electronically signed by Keenan Anglin DO> Cosigner Signature (if applicable): CC: Dr. Lucas Guzman MD; Keenan Anglin DO~ Signed [facility] Work Phone: [phone] [phone] Procedure [facility] 05-09-2023 Procedure [facility]06-17-2022 Miscellaneous Notes* Telephone Encounter - Elis Kay RN - 12/09/2021 10:30 AM EDT Patient notified of results and provider's instructions. Patient verbalizes understanding. Elis Kay RN * Telephone Encounter - Elis Kay RN - 12/09/2021 10:30 AM EDT ----- Message from Sabas Dietz sent at 12/09/2021 10:06 AM EDT ----- Please call patient to inform her that there are no spurs to the tip of the toe (under the nail). If she has pain with the nail, she could consider removal of the toenail. Sabas Dietz DPM documented in this encounterPaulding [facility]06-[facility]22 NoteHNO ID: [id number] Author: RT Familia(R) Service: Radiology Author Type: Technologist Type: Progress Notes Filed: 12/08/2021 2:02 PM Note Text: Radiology Service Progress Note PATIENT NAME: Adan Ryan DATE OF SERVICE: December 08, 2021 TIME: 1:47 PM PATIENT IDENTITY VERIFICATION COMPLETED USING TWO (2) IDENTIFIERS: Name and Date of confirmed by patient verbally. FALL SCREENING: Has the patient had 2 falls in the last year or 1 fall with injury or currently using an Ambulatory Assistive Device (Walker, Cane, Wheelchair, Crutches, etc.)? No PATIENT GENDER DATA: Female. status: : No status: NO. PATIENT RELEVANT IMPLANT DATA REVIEWED: Yes RADIOLOGY DEPARTMENT: General X-ray: Exam(s) Completed: Lower Extremity X-Ray(s): Toes, Bilateral great toes PERIPHERAL IV DATA: Not applicable SIGNED BY: RT Familia(R) December 08, 2021 1:47 [facility]06-16-2022 NoteHNO ID: [id number] Author: Sabas Dietz Service: ? Author Type: Physician Type: Progress Notes Filed: 12/08/2021 1:44 PM Note Text: Initial Podiatric Office Visit: Chief Complaint: This 76 year old female who presents with chief complaint:toenail fungus HPI Patient presents to clinic for evaluation of b/l feet. Patient complains of thick discolored and deformed toenails of b/l hallux and left 4th toenail The nails have been discolored for 1 year Patient has no prior treatment other than cutting of the nail. Patient is here to discuss options. PAIN EVALUATION No data found in the last 1 encounters. No results found for: HBA1C PCP: Lucas Guzman MD PAST MEDICAL HISTORY Diagnosis Date - History of high cholesterol - Miscarriage - Osteoporosis - Pulmonary embolism (HCC) Current Outpatient Medications Medication Sig - Ascorbic Acid 1,000 mg tablet Take 1,000 mg by mouth. - calcium/magnesium/zinc (ACIUSHU-GLYNXYLDFM-FNXE) 333-133-5 mg tab Take 3 tablets by mouth. - Cholecalciferol, Vitamin D3, 25 mcg (1,000 unit) cap Take 2,000 Units by mouth. - Multivitamin capsule Take 1 capsule by mouth. - alendronate (FOSAMAX) 10 mg tablet TAKE 1 TABLET EVERY MORNING WITH A GLASS OF WATER ON AN EMPTY STOMACH - apixaban (ELIQUIS) 2.5 mg tab tab(s) Take 2.5 mg by mouth twice daily. - rosuvastatin (CRESTOR) 5 mg tablet No current facility-administered medications for this visit. ALLERGIES No Known Allergies PAST SURGICAL HISTORY Procedure Laterality Date - ARTHRP ACETBLR/PROX FEM PROSTC AGRFT/ALGRFT Left 2009 Hip replacement, total - DILATION AND CURETTAGE DXAND/THER NONOBSTETRIC Dilation AND curettage - TONSILLECTOMY AND ADENOIDECTOMY FAMILY HISTORY Problem Relation Age of Onset - Cancer Mother 95 - Thyroid Mother - Cancer Father 60 Leukemia - Schizophrenia Sister - Thyroid Sister Hypothyroidism - Osteoporosis Sister - Breast Cancer Sister 2020- mastectomy of right breast - Arthritis Brother - Osteoporosis Brother Social History Tobacco Use - Smoking status: Never Smoker - Smokeless tobacco: Never Used Vaping Use - Vaping Use: Never used Substance Use Topics - Alcohol use: Yes Comment: Occasionally - Drug use: Never REVIEW OF SYSTEMS GENERAL: Negative for Malaise, significant weight loss, fever RESPIRATORY: Negative for cough, wheezing and shortness of breath CARDIOVASCULAR: Negative for chest pain, leg swelling and palpitations GI: Negative for abdominal discomfort, blood in stools or black stools and change in bowel habits : Negative for dysuria, frequency and incontinence MUSCULOSKELETAL: Negative for joint pain or swelling, back pain, and muscle pain. SKIN: Negative for lesions, rash, and itching. HEMATOLOGY/LYMPHOLOGY Negative for prolonged bleeding, bruising easily, and swollen nodes. ENDOCRINE: Negative for cold or heat intolerance, polyuria, polydipsia and goiter. NEURO: negative Physical Exam: Constitutional: Pt is a well developed 76 year old female who is alert, oriented and cooperative Eyes: Following during examination. No redness or drainage. Respiratory: RR normal and nonlabored. Even breathing. No evidence of distress or shortness of breath. Psychology: Patient is engaged during conversation. Normal affect and mood. Does not appear depressed or anxious during encounter. Vascular: Dorsalis pedis and posterior tibial pulses faintly palpable b/l Capillary Fill time < 5 seconds to digits 1-5 b/l Skin temperature warm to cool proximal to distal b/l Hair growth present to digits Neurological: intact light touch/epicritic sensation b/l intact protective sensation no significant neurological deficits Dermatological: B/l hallux and left 4th toenail is thick, dystrophic, discolored. Webspaces clean and dry 1-4 b/l. Skin appears well hydrated and supple. good color, texture, turgor. No open lesions present. No callosities present. Musculoskeletal/Orthopaedic: Patient has no pain to palpation of b/l feet Foot type is neutral structurally AJ ROM is full with knee extended and flexed 1st MPJ is full when loaded and no pain or crepitus are noted with ROM. MTJ, STJ are full and free of pain and crepitus. 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 We discussed the possible etiologies of discolored, dystrophic, and thickened nails including fungus, yeast, mold as well as in some instances, prior trauma, or mechanical causes such as repetitive microtrauma in shoe gear. We discussed topical medication for discolored toenails which has very low success but no major side eff (more content not included)...[facility]06-16-2022 NoteHNO ID: [id number] Author: Lara Neely Ma Service: ? Author Type: ? Type: Progress Notes Filed: 12/08/2021 1:44 PM Note Text: Patient presents with: Right Foot - New Left Foot - New Fungus bilateral great toenails AMB ROOMING INTAKE FLOWSHEET DATA Risk Screening Do you have concerns about personal safety or safety in the home?: No Patient here today for possible fungus on bilateral great toenails and left toenail.[facility]06-16-2022 History of Present illness Narrative* Mary Camacho, RT(R) - 12/08/2021 1:45 PM EDT Radiology Service Progress Note PATIENT NAME: Adan Ryan DATE OF SERVICE: December 08, 2021 TIME: 1:47 PM PATIENT IDENTITY VERIFICATION COMPLETED USING TWO (2) IDENTIFIERS: Name and Date of confirmedby patient verbally. FALL SCREENING: Has the patient had 2 falls in the last year or 1 fall with injury or currently using an Ambulatory Assistive Device (Walker, Cane, Wheelchair, Crutches, etc.)? No PATIENT GENDER DATA: Female. status: : No status: NO. PATIENT RELEVANT IMPLANT DATA REVIEWED: Yes RADIOLOGY DEPARTMENT: General X-ray: Exam(s) Completed: Lower Extremity X- Ray(s): Toes, Bilateral great toes PERIPHERAL IV DATA: Not applicable SIGNED BY: RT Familia(R) December 08, 2021 1:47 PM documented in this encounterPaulding County Hospital04-22-2022 NoteHNO ID: [id number] Author: Colette Gold OD Service: ? Author Type: HOGSHEAD DUMPER Type: Progress Notes Filed: 10/14/2021 11:33 AM Note Text: 1. Early dry stage nonexudative age-related macular degeneration of both eyes Mild drusen OS>OD Educated pt on condition Gave kamaljitler with directions and recommended starting AREDs 2 supplement daily -recommend UV protection at all times outdoors, and healthy diet of fruits/vegeatbles Monitor yearly or sooner with amsler 2. 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 Combined forms of age-related cataract of both eyes Mild. Monitor 4. Hypermetropia, bilateral 5. Presbyopia Finalized spec rx. Follow-up yearly or sooner with any changes Colette Gold, OD October 14, 2021 11:26 [facility]04-22-2022 History of Present illness Narrative* Colette Gold, OD - 10/14/2021 11:26 AM EDT 1. Early dry stage nonexudative age-related macular degeneration of both eyes Mild drusen OS>OD Educated pt on condition Gave hemalatha with directions and recommended starting AREDs 2 supplement daily -recommend UV protection at all times outdoors, and healthy diet of fruits/vegeatbles Monitor yearly or sooner with amsler 2. 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 Combined forms of age-related cataract of both eyes Mild. Monitor 4. Hypermetropia, bilateral 5. Presbyopia Finalized spec rx. Follow-up yearly or sooner with any changes Colette Gold, OD October 14, 2021 11:26 AM documented in this encounterPaulding County Hospital04-22-2022 Instructions* Patient Instructions* Colette Gold, OD - 10/14/2021 10:37 AM EDT Images from the original note were not included. AMSLER GRID: 1. While wearing your reading glasses, hold the grid at a normal reading distance. 2. With one eye covered, look at the black dot in the center of grid. 3. Note any lines that are wavy, broken or missing. 4. Repeat for the other eye and report any changes to Dr. 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 Combined forms of age-related cataract of both eyes Other and combined forms of senile cataract Hypermetropia, bilateral Presbyopia documented in this encounter [facility] HospitalEvalusaint franc[facility] note* Diagnosis Onychomycosis Dermatophytosis of nail Onychodystrophy Other specified disease of nail Subungual exostosis Exostosis of unspecified site documented in this encounter [facility]* Diagnosis Onset Date Resolution Status Palpitations chronic Pulmonary emboli resolved [facility] Work Phone: Evaluation note* Diagnosis Onset Date Resolution Status Palpitations chronic Pulmonary emboli resolved Palpitations chronic Pulmonary emboli resolved [facility] Work Phone: Evaluation note* Diagnosis Onset Date Resolution Status Admit Date Dyslipidemia chronic December 22 11:04am History of pulmonary embolism chroni c December 22, 2024 11:04am Orthostatic hypotension chronic J 2024 11:04am Venous insufficiency (chroni c) (peripheral) chronic December 22, 2024 11:04am [facility] Work Phone: Reason for referral (narrative)* Diagnostic Procedure Only (Routine) - Closed Specialty Diagnoses / Procedures Referred By Contac t Referred To Contact XR IMAGING Diagnoses Onychomycosis Onychodystrophy Subungual exostosis Procedures XR TOE AP/LAT/OBL RIGHT RADEX TOE MINIMUM 2 VIEWS Sabas Dietz [address] [place] [address] Xr Imaging Referral ID Status Reason Start Date Expiration Date V isits Requested Visits Authorized [id number] Closed Auto-Generate d Referral 12/08/2021 01/07/2023 1 1 * Diagnostic Procedure Only (Routine) - Closed Specialty Diagnoses / Procedures Referred By Contac t Referred To Contact XR IMAGING Diagnoses Onychomycosis Onychodystrophy Subungual exostosis Procedures XR TOE AP/LAT/OBL LEFT RADEX TOE MINIMUM 2 VIEWS Sabas Dietz[address] [place] [address] Xr Imaging Referral ID Status Reason Start Date Expiration Date V isits Requested Visits Authorized [id number] Closed Auto-Generate d Referral 12/08/2021 01/07/2023 1 1 [facility] HospitalReason for referral (narrative)No reason for referral information availableWGreen Cross Hospital Work Phone: Reason for visit Narrative* Diagnostic Procedure Only (Routine) - Closed Specialty Diagnoses / Procedures Referred By Contac t Referred To Contact XR IMAGING Diagnoses Onychomycosis Onychodystrophy Subungual exostosis Procedures XR TOE AP/LAT/OBL RIGHT RADEX TOE MINIMUM 2 VIEWS Sabas Dietz[address] [place] [address] Xr Imaging Referral ID Status Reason Start Date Expiration Date V isits Requested Visits Authorized [id number] Closed Auto-Generate d Referral 12/08/2021 01/07/2023 1 1 [facility] Chief Complaint and Reason for Visit Chief Complaint SCREENING Chief Complaint Palpitations PALPITATIONS Reason for Visit Palpitations Pulmonary emboli Chief Complaint Palpitations PALPITATIONS Amb Documentation Reason for Visit Palpitations Pulmonary emboli Chief Complaint Palpitations PALPITATIONS Amb Documentation 3 M FU Reason for Visit Palpitations Pulmonary emboli Palpitations Pulmonary emboli Chief Complaint Palpitations PALPITATIONS Amb Documentation 3 M FU PALPITATIONS PALPITATIONS Reason for Visit Palpitations Pulmonary emboli Palpitations Pulmonary emboli Chief Complaint Amb Documentation 3 M FU PALPITATIONS PALPITATIONS AGE-RELATED OSTEOPOROSIS SCREENING Reason for Visit Palpitations Pulmonary emboli Chief Complaint AGE-RELATED OSTEOPOR OSIS SCREENING Consult Chief Complaint SCREENING Consult Chief Complaint Venous insufficiency (chronic) (peripheral) Chief Complaint Admit Date HYPOTENSION July 28, 2024 1 0:58am S/P L ILIAC VEIN STENT October 22, 2024 9:03am Chief Complaint Admit Date S/P L ILIAC VEIN STENT October 22, 2024 9:03am 6 MFU December 22, 2024 11:0 4am Reason for Visit Admit Date Dyslipidemia December 22, 2024 11:0 4am History of pulmonary embolism December 22, 2024 11:04am Orthostatic hypotension December 22, 2024 11:04am Venous insufficiency (chronic) (peripher al) December 22, 2024 11:04am Chief Complaint Admit Date S/P L ILIAC VEIN STENT October 22, 2024 9:03am 6 MFU December 22, 2024 11:0 4am hypersomnia, snoring, SOB at night January 13, 2025 8:06pm Reason for Visit Admit Date Dyslipidemia December 22, 2024 11:0 4am Fatigue December 22, 2024 11:0 4am History of pulmonary embolism December 22, 2024 11:04am Orthostatic hypotension December 22, 2024 11:04am Venous insufficiency (chronic) (peripher al) December 22, 2024 11:04am Chief Complaint Admit Date S/P L ILIAC VEIN STENT October 22, 2024 9:03am 6 MFU December 22, 2024 11:0 4am hypersomnia, snoring, SOB at night January 13, 2025 8:06pm Sleep problems January 28, 2025 9:4 1am Family History No Family History Records Found Relationship Condition Age at Onset Recorded Date/T krista father Leukemia Unknown mother Malignant neoplasm of skin of trunk Unkno wn Relationship Condition Age at Onset Recorded Date/T krista father Leukemia Unknown mother Malignant neoplasm of skin of trunk Unkno wn Cardiac disease Unknown Advance Directives No Advanced Directives Records Found Advance Directive Response Recorded Date/ Time Living Will No November 24, 2020 1 1:48am Power of Steel Pourer Helper No November 24, 2020 11:48am Advance Directive Response Recorded Date/ Time Living Will No May 04, 023 9:27am Power of Steel Pourer Helper No May 04, 2023 9:27am Advance Directive Response Recorded Date/ Time Living Will No May 04, 023 10:27am Power of Steel Pourer Helper No May 04, 2023 10:27am Advance Directive Response Recorded Date/ Time Living Will No April 16 9:01am Do you have a Healthcare Power of Steel Pourer Helper? No April 16, 2024 9:01am Advance Directives No April 16, 2024 9:01am Summary Purpose Additional Source Comments Goals (unrecognized section and content) Goals may be documented in a n alternate sectionGoals may be documented in an alternate sectionGoals may be documented in an alternate sectionGoals may be documented in an alternate sectionGoals may be documented in an alternate sectionGoals may be documented in an alternate sectionGoals may be documented in an alternate sectionGoals may be documented in an alternate sectionGoals may be documented in an alternate sectionGoals may be documented in an alternate sectionGoals may be documented in an alternate sectionGoals may be documented in an alternate sectionGoals may be documented in an alternate sectionGoals may be documented in an alternate sectionGoals may be documented in an alternate section Source Comments (unrecognize d section and content) In the event this informatio n is protected by the Federal Confidentiality of Alcohol and Drug Abuse Patient Records regulations: The Federal rules restrict any use of the information to criminally investigate or prosecute any alcohol or drug abuse patient.[facility] HospitalIn the event this information is protected by the Federal Confidentiality of Alcohol and Drug Abuse Patient Records regulations: The Federal rules restrict any use of the information to criminally investigate or prosecute any alcohol or drug abuse patient.[facility] HospitalIn the event this information is protected by the Federal Confidentiality of Alcohol and Drug Abuse Patient Records regulations: The Federal rules restrict any use of the information to criminally investigate or prosecute any alcohol or drug abuse patient.[facility] Reason for Visit (unrecogniz ed section and content) Reason Comments Decreased Vision Both Eyes Reason Comments Results Care Teams (unrecognized sec tion and content) Team Status: Active Member Role Status Dates Dr. Lucas Guzman MD Primary Care Provider Active Team Status: Inactive Member Role Status Dates Dr. Lucas Guzman MD Primary Care Provider Active Start: July 28, 2024 End: July 28, 2024 Dr. Fausto Hutton MD Attending Provider Active Start: July 28, 2024 End: July 28, 2024 Dr. Fausto Hutton MD Referring Provider Active Start: July 28, 2024 End: July 28, 2024 Team Status: Active Member Role Status Dates Dr. Lucas Guzman MD Primary Care Provider Active Start: July 28, 2024 Dr. Fausto Hutton MD Attending Provider Active Start: July 28, 2024 Team Status: Inactive Member Role Status Dates Dr. Lucas Guzman MD Primary Care Provider Active Start: July 31, 2024 End: July 31, 2024 Dr. Lucas Guzman MD Attending Provider Active Start: July 31, 2024 End: July 31, 2024 Dr. Lucas Guzman MD Referring Provider Active Start: July 31, 2024 End: July 31, 2024 Team Status: Inactive Member Role Status Dates Dr. Lucas Guzman MD Primary Care Provider Active Start: October 22, 2024 End: October 22, 2024 ARYA Meredith Attending Provider Active Star t: October 22, 2024 End: October 22, 2024 ARYA Meredith Referring Provider Active Star t: October 22, 2024 End: October 22, 2024 Team Status: Active Member Role Status Dates Dr. Lucas Guzman MD Primary Care Provider Active Start: October 22, 2024 Dr. Delvis Galvan MD Attending Provider Active S tart: October 22, 2024 ARYA Meredith Referring Provider Active Star t: October 22, 2024 Team Status: Inactive Member Role Status Dates Dr. Lucas Guzman MD Primary Care Provider Active Start: November 18, 2024 End: November 18, 2024 Dr. Lucas Guzman MD Attending Provider Active Start: November 18, 2024 End: November 18, 2024 Dr. Lucas Guzman MD Referring Provider Active Start: November 18, 2024 End: November 18, 2024 Team Status: Active Member Role Status Dates Dr. Lucas Guzman MD Primary Care Provider Active Dr. Delvis Galvan MD Attending Provider Active Dr. Mehul Sr DPM Referring Provider Active Team Status: Inactive Member Role Status Dates Dr. Lucas Guzman MD Primary Care Provider Active Dr. Mehul Sr DPM Attending Provider, Referrin g Provider Active Law Enforcement Officer Relationship Specialty Start Date End Date Lucas Guzman [address] [place] [address] PCP - General Family Practice 05/21/20 Law Enforcement Officer Relationship Specialty Start Date End Date Lucas Guzman [address] [facility] [address] [place] [address] PCP - General Family Practice 05/21/20 Law Enforcement Officer Relationship Specialty Start Date End Date Lucas Guzman [address] [facility] [address] [place] [address] PCP - General Family Practice 05/21/20 Team Status: Inactive Member Role Status Dates Dr. Lucas Guzman MD Primary Care Provider, Referr ing Provider Active Dr. Fausto Hutton MD Attending Provider Active Team Status: Active Member Role Status Dates Dr. Lucas Guzman MD Primary Care Provider Active Dr. Fausto Hutton MD Attending Provider Active Team Status: Inactive Member Role Status Dates Dr. Lucas Guzman MD Primary Care Provider Active Dr. Fausto Hutton MD Attending Provider, Referring Pr ovider Active Team Status: Active Member Role Status Dates Dr. Lucas Guzman MD Primary Care Provider Active Moni Madrigal Attending Provider Active Team Status: Active Member Role Status Dates Dr. Lucas Guzman MD Primary Care Provider, Attend ing Provider Active Team Status: Inactive Member Role Status Dates Dr. Lucas Guzman MD Primary Care Provider Active Verito Jimenez CLINICAL SOCIAL WORK AIDE, CLINICAL SOCIAL WORK AIDE-C Attending Provider Active Team Status: Inactive Member Role Status Dates Dr. Lucas Guzman MD Primary Care Provider, Attend ing Provider Active Team Status: Active Member Role Status Dates Dr. Lucas Guzman MD Primary Care Provider Active Dr. Fausto Hutton MD Attending Provider , Referring Provider, Other Provider Active Team Status: Inactive Member Role Status Dates Dr. Lucas Guzman MD Primary Care Pr ovider, Attending Provider, Referring Provider Active Team Status: Inactive Member Role Status Dates Dr. Lucas Guzman MD Primary Care Provider, Referr ing Provider Active Dr. Keenan Anglin DO Attending Provider Active Team Status: Active Member Role Status Dates Dr. Lucas Guzman MD Primary Care Provider, Referr ing Provider Active Dr. Keenan Anglin DO Attending Provider, Other Prov ider Active Team Status: Active Member Role/Relationship Status Dates Dr. Lucas Guzman MD Primary Care Provider Active Team Status: Inactive Member Role/Relationship Status Dates Dr. Lucas Guzman MD Primary Care Provider Active Start: October 22, 2024 End: October 22, 2024 ARYA Meredith Attending Provider Active Star t: October 22, 2024 End: October 22, 2024 ARYA Meredith Referring Provider Active Star t: October 22, 2024 End: October 22, 2024 Team Status: Active Member Role/Relationship Status Dates Dr. Lucas Guzman MD Primary Care Provider Active Start: October 22, 2024 Dr. Delvis Galvan MD Attending Provider Active S tart: October 22, 2024 ARYA Meredith Referring Provider Active Star t: October 22, 2024 Team Status: Inactive Member Role/Relationship Status Dates Dr. Lucas Guzman MD Primary Care Provider Active Start: November 18, 2024 End: November 18, 2024 Dr. Lucas Guzman MD Attending Provider Active Start: November 18, 2024 End: November 18, 2024 Dr. Lucas Guzman MD Referring Provider Active Start: November 18, 2024 End: November 18, 2024 Team Status: Inactive Member Role/Relationship Status Dates Dr. Lucas Guzman MD Primary Care Provider Active Start: December 22, 2024 End: December 22, 2024 Dr. Lucas Guzman MD Referring Provider Active Start: December 22, 2024 End: December 22, 2024 ARYA Watson Attending Provider Active St art: December 22, 2024 End: December 22, 2024 Team Status: Inactive Member Role/Relationship Status Dates Dr. Lucas Guzman MD Primary Care Provider Active Start: January 13, 2025 End: January 13, 2025 ARYA Watson Attending Provider Active St art: January 13, 2025 End: January 13, 2025 ARYA Watson Referring Provider Active St art: January 13, 2025 End: January 13, 2025 Team Status: Inactive Member Role/Relationship Status Dates Dr. Lucas Guzman MD Primary Care Provider Active Start: January 28, 2025 End: January 28, 2025 Dr. Lucas Guzman MD Referring Provider Active Start: January 28, 2025 End: January 28, 2025 Salina Lopez NP, CLINICAL SOCIAL WORK AIDE-C Attending Provider Active Start: January 28, 2025 End: January 28, 2025 INFORMATION SOURCE (unrecogn ized section and content) DATE CREATED AUTHOR 12/09/2021 [facility] DATE CREATED AUTHOR AUTHOR'S ORGANIZ ATION 05/03/2025 [facility] FOR RECORDS PERTAINING TO PATIENTS WHO ARE OR HAVE BEEN ENROLLED IN A CHEMICAL DEPENDENCY/SUBSTANCEABUSE PROGRAM, SOME INFORMATION MAY BE OMITTED. This clinical summary was aggregated from multiple sources. Caution should be exercised in using it in the provision of clinical care. This summary normalizes information from multiple sources, and as a consequence, information in this document may materially change the coding, format and clinical context of patient data. In addition, data may be omitted in some cases. CLINICAL DECISIONS SHOULD BE BASED ON THE PRIMARY CLINICAL RECORDS. [facility], [facility]. provides no warranty or guarantee of the accuracy or completeness of information in this document.
== END | disposition home or self-care (01) ==
LOC: SL 14:27
PROVIDERS: PCP Family Medicine; Visit Provider Nurse Practitioner Acute Care
DX: G47.33 Obstructive sleep apnea (adult) (pediatric) (principal)
CPT/HCPCS: 98960; G0463

== ENCOUNTER → 2025-05-13 | Outpatient (CLI) | payer MEDICARE, OTHER, SELFPAY ==
--- NOTE | 2025-05-13 09:01 | AAVD_ITS ---
Reason For Study Reason For Study: HX Lt CIV Stent Inferior Vena Cava Proximal inferior vena cava measures 1.28 x 1.44 cm. in the cross-sectional axis. Proximal inferior vena cava measures 1.33 cm. in the longitudinal axis. Mid inferior vena cava measures 1.20 x 1.51 cm. in the cross-sectional axis. Mid inferior vena cava measures 1.31 cm. in the longitudinal axis. Distal inferior vena cava measures 1.22 x 1.34 cm. in the cross-sectional axis. Distal inferior vena cava measures 1.00 cm. in the longitudinal axis. The inferior vena cava has spontaneous, phasic flow throughout. 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 Left common iliac vein measures 1.05 x 1.07 cm. in the cross-sectional axis. Left common iliac vein measures 1.10 cm. in the longitudinal axis. The left common iliac vein has spontaneous, phasic flow throughout. Right Common Iliac Vein Right common iliac vein measures 1.05 x 1.41 cm. in the cross-sectional axis. Right common iliac vein measures 0.92 cm. in the longitudinal axis. The right common iliac vein has spontaneous, phasic flow throughout. Procedure Aorta IVC Iliac vasculature or bypass grafts 21139. The exam was diagnostic. Exam performed in department. 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 Left iliac vein stent patent with normal venous flow pattern. Ordering Physician: Maria R Bello Referring Physician: Lucas Guzman Performed By: Howie Greenberg RVT
== END | disposition home or self-care (01) ==
LOC: CVS 08:57
PROVIDERS: PCP Family Medicine; Referring Provider Physician Assistant; Visit Provider Physician Assistant
DX: Z48.812 Encounter for surgical aftercare following surgery on the circulatory system (principal)
CPT/HCPCS: 93978